=== PATIENT | male | born 1955 | race Caucasian/White ===

== ENCOUNTER 2017-06-06 17:16 | Inpatient (IN) | payer OTHER ==
[~2017-06-06] VITALS: Ht 180.3 cm; Wt 105.5 kg
[2017-06-06] MEDS ORDERED: GABA100C4 PO (17:29)
[2017-06-06] MEDS ORDERED: LIDOCAINE 1%/EPINEPHrine 1:100,000 SOLN 20 ML VIAL ONE (17:31)
[2017-06-06] MEDS ORDERED: MORPHINE SULFATE 4 MG/ML INJ IV PUSH ONE (17:45)
[2017-06-06] MEDS ORDERED: TETANUS/DIPHTHERIA TOXOID ADULT 0.5 ML VIAL IM ONE (17:45)
[2017-06-06] MEDS ORDERED: ONDANSETRON HCL 4 MG/2 ML VIAL IV PUSH ONE (17:45)
[2017-06-06 18:05] LABS: AUTOMATED NEUTROPHIL # 7.9 TH/MM3 (1.8-7.7); BASOPHIL % 0.3 % (0.0-2.0); EOSINOPHIL # 0.1 TH/MM3 (0-0.4); HEMATOCRIT 43.6 % (39.0-51.0); HEMOGLOBIN 15.2 GM/DL (13.0-17.0); LYMPH % 21.5 % (9.0-44.0); LYMPHOCYTE # 2.4 TH/MM3 (1.0-4.8); MEAN CELL VOLUME 95.3 FL (80.0-100.0); MEAN CORPUSCULAR HEMOGLOBIN 33.1 PG (27.0-34.0); MEAN CORPUSCULAR HGB CONC 34.8 % (32.0-36.0); MEAN PLATELET VOLUME 9.4 FL (7.0-11.0); MONO % 6.3 % (0.0-8.0); MONOCYTE # 0.7 TH/MM3 (0-0.9); NEUT % 70.9 % (16.0-70.0); PLATELET COUNT 121 TH/MM3 (150-450); RED BLOOD COUNT 4.57 MIL/MM3 (4.50-5.90); RED CELL DISTRIBUTION WIDTH 12.9 % (11.6-17.2); WHITE BLOOD COUNT 11.2 TH/MM3 (4.0-11.0)
[2017-06-06 18:21] LABS: BICARBONATE 28.2 MEQ/L (21.0-32.0); CALCIUM 8.5 MG/DL (8.5-10.1); CREATININE 1.62 MG/DL (0.60-1.30)
[2017-06-06] MEDS ORDERED: IOHEXOL 350 MG/ML 10 ML VIAL (for RAD DIAG) IVCONTRAST ONE (19:06)
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
[2017-06-06 19:45] VITALS: BP 138/64; PULSE 66; RESP 16; O2SAT 97
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
[2017-06-06] MEDS ORDERED: ACETAMINOPHEN/HYDROcodone 325 MG/5 MG TAB PO PRN (20:45)
[2017-06-06] MEDS ORDERED: CHLORHEXIDINE GLUCONATE 2 % 1 PACK (2 CLOTHS) TOP PRN (20:45)
[2017-06-06] MEDS ORDERED: MISCELLANEOUS NURSING INFORMATION XX SCH (20:45)
[2017-06-06] MEDS: HYDROmorphone HCL PF 1 MG/ML VIAL IVP PRN (20:47)
[2017-06-06] MEDS: ONDANSETRON HCL 4 MG/2 ML VIAL IV PUSH PRN (20:47)
[2017-06-06 20:48] VITALS: BP 157/80; PULSE 72; RESP 18; O2SAT 97
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
[2017-06-06] MEDS ORDERED: PANTOPRAZOLE SODIUM 40 MG VIAL IVP SCH (21:00)
[2017-06-06] MEDS ORDERED: DOCUSATE SODIUM 100 MG CAP PO SCH (21:00)
[2017-06-06] MEDS: SODIUM CHLOR 0.9% 1000 ML INJ 1,000 ML IV SCH (21:13)
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
[2017-06-06 22:34] VITALS: BP 147/74; PULSE 74; RESP 16; O2SAT 96
[2017-06-06 23:00] VITALS: PULSE 74
[2017-06-06 23:27] VITALS: O2SAT 99
[2017-06-07] VITALS (15 sets, daily range): BP systolic 137–178; BP diastolic 67–83; PULSE 57–89; RESP 13–22; TEMP 97.6–98.3; O2SAT 97–100
[2017-06-07] MEDS: ONDANSETRON HCL 4 MG/2 ML VIAL IV PUSH PRN ×2 (02:00→17:12)
[2017-06-07] MEDS: HYDROmorphone HCL PF 1 MG/ML VIAL IVP PRN ×5 (03:17→22:49)
[2017-06-07] MEDS: CHLORHEXIDINE GLUCONATE 2 % 1 PACK (2 CLOTHS) TOP SCH (04:00)
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
--- NOTE | 2017-06-07 04:31 | RADRPT ---
EXAM DATE/TIME: 06/07/2017 03:37 [facility] COMPARISON: CT THORACIC SPINE W/O CONTRAST, June 06, 2017, 21:24. CHEST SINGLE AP, June 06, 2017, 20:27. INDICATIONS : Short of breath. MEDICAL HISTORY : None. SURGICAL HISTORY : None. ENCOUNTER: Subsequent ACUITY: 2 days PAIN SCORE: 0/10 LOCATION: Bilateral chest FINDINGS: A single view of the chest demonstrates the lungs to be symmetrically aerated without evidence of mas s, infiltrate or effusion. The cardiomediastinal contours are unremarkable. Osseous structures are intact. Amorphous calcification is again noted in the left upper abdomen. CONCLUSION: No acute disease. Jt Dumas MD on June 07, 2017 at 4:27 Board Certified Radiologist. This report was verified electronically.
[2017-06-07] MEDS ORDERED: DEXTROSE 50% IN WATER 50 ML VIAL(D50) IV PUSH PRN (04:45)
[2017-06-07] MEDS ORDERED: GLUCAGON 1 MG/ML VIAL OTHER PRN (04:45)
[2017-06-07] MEDS: levETIRAcetam INJ 500 MG in SODIUM CHLORIDE 0.9% INJ 100 ML IV SCH ×2 (04:49→17:12)
--- NOTE | 2017-06-07 05:13 | RADRPT ---
EXAM DATE/TIME: 06/07/2017 04:46 [facility] COMPARISON: No previous studies available for comparison. INDICATIONS : Pain in right hand to posterior portion of hand. MEDICAL HISTORY : None. SURGICAL HISTORY : None. ENCOUNTER: Initial ACUITY: 1 day PAIN SCORE: 0/10 LOCATION: Right hand FINDINGS: Three view examination of the right hand demonstrates a mildly comminuted fracture of the fifth phala ngeal tuft. There is mild overlying soft tissue swelling. The carpal bones appear intact. The interp halangeal and metacarpophalangeal joints are intact with degenerative changes involving interphalange al joints with joint space loss, sclerosis and hypertrophic change. Bony mineralization is normal. CONCLUSION: 1. Mildly comminuted fracture of the fifth distal phalangeal tuft with mild soft tissue swelling. 2. Osteoarthritic change. Jt Dumas MD on June 07, 2017 at 5:10 Board Certified Radiologist. This report was verified electronically.
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
[2017-06-07] MEDS: INSULIN ASPART SUPPLEMENTAL SCALE SQ SCH ×3 (06:00→18:00)
[2017-06-07] MEDS: SODIUM CHLOR 0.9% 1000 ML INJ 1,000 ML IV SCH ×3 (06:17→20:22)
[2017-06-07 06:55] LABS: HEMATOCRIT 39.4 % (39.0-51.0); HEMOGLOBIN 13.3 GM/DL (13.0-17.0); MEAN CELL VOLUME 96.6 FL (80.0-100.0); MEAN CORPUSCULAR HEMOGLOBIN 32.6 PG (27.0-34.0); MEAN CORPUSCULAR HGB CONC 33.7 % (32.0-36.0); MEAN PLATELET VOLUME 9.3 FL (7.0-11.0); PLATELET COUNT 106 TH/MM3 (150-450); RED BLOOD COUNT 4.08 MIL/MM3 (4.50-5.90); RED CELL DISTRIBUTION WIDTH 13.2 % (11.6-17.2); WHITE BLOOD COUNT 11.5 TH/MM3 (4.0-11.0)
[2017-06-07 07:00] LABS: PROTHROMBIN TIME - PATIENT 10.4 SEC (9.8-11.6)
[2017-06-07 07:14] LABS: ALT (GPT) 13 U/L (12-78); AST (GOT) 14 U/L (15-37); BICARBONATE 27.9 MEQ/L (21.0-32.0); BLOOD UREA NITROGEN 25 MG/DL (7-18); CALCIUM 8.1 MG/DL (8.5-10.1); CHLORIDE 108 MEQ/L (98-107); CREATININE 1.28 MG/DL (0.60-1.30); GLOMERULAR FILTRATION RATE 57 ML/MIN (>89); GLUCOSE,RANDOM 138 MG/DL (74-106); SODIUM (NA) 141 MEQ/L (136-145)
[2017-06-07 07:17] LABS: ALKALINE PHOSPHATASE 57 U/L (45-117); TOTAL BILIRUBIN ADULT 0.6 MG/DL (0.2-1.0); TOTAL PROTEIN 6.1 GM/DL (6.4-8.2)
[2017-06-07] MEDS ORDERED: LACTULOSE SYRUP 20 GM/30 ML CUP PO PRN (08:00)
[2017-06-07] MEDS: BACITRACIN TOP OINT 15 GM TUBE TOP SCH ×2 (09:00→22:15)
[2017-06-07] MEDS: DOCUSATE SODIUM 50 MG/SENNA 8.6 MG TAB PO SCH ×2 (09:34→22:15)
[2017-06-07] MEDS: GABAPENTIN 100 MG CAP PO SCH ×3 (09:34→18:13)
[2017-06-07] MEDS: FAMOTIDINE 20 MG TAB PO SCH ×2 (09:34→22:15)
[2017-06-07] MEDS: BACITRACIN TOP OINT 15 GM TUBE TOPICAL SCH ×2 (09:35→21:00)
[2017-06-07] MEDS: POLYETHYLENE GLYCOL 17 GM PKG PO SCH (09:35)
--- NOTE | 2017-06-07 09:36 | RADRPT ---
EXAM DATE/TIME: 06/07/2017 08:47 [facility] COMPARISON: No previous studies available for comparison. INDICATIONS : Right leg swelling. MEDICAL HISTORY : Blood transfusion. Neuropathy. SURGICAL HISTORY : Lab band. Adrenal glad removal. ENCOUNTER: Initial ACUITY: >1 year PAIN SCORE: 8/10 LOCATION: Right leg. TECHNIQUE: Venous ultrasound of the leg was performed from the inguinal ligament to the proximal calf. Real-yuval e, color Doppler and spectral tracing, compression and augmentation techniques were used. FINDINGS: There is normal compressibility of the deep venous system from the inguinal region to the proximal ca lf. No echogenic clot is seen in the lumen of the common femoral, femoral, popliteal, and posterior tibial veins. There is a normal response of the venous system to proximal and distal augmentation an d respiration. CONCLUSION: No DVT is identified within the right lower extremity. Kranthi Monique MD on June 07, 2017 at 9:33 Board Certified Radiologist. This report was verified electronically.
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
[2017-06-07 12:36] LABS: AUTOMATED NEUTROPHIL # 7.1 TH/MM3 (1.8-7.7); BASOPHIL % 0.3 % (0.0-2.0); EOSINOPHIL % 0.4 % (0.0-4.0); HEMATOCRIT 38.4 % (39.0-51.0); HEMOGLOBIN 12.9 GM/DL (13.0-17.0); LYMPH % 13.7 % (9.0-44.0); LYMPHOCYTE # 1.3 TH/MM3 (1.0-4.8); MEAN CELL VOLUME 97.6 FL (80.0-100.0); MEAN CORPUSCULAR HEMOGLOBIN 32.9 PG (27.0-34.0); MEAN CORPUSCULAR HGB CONC 33.8 % (32.0-36.0); MEAN PLATELET VOLUME 9.7 FL (7.0-11.0); MONOCYTE # 1.2 TH/MM3 (0-0.9); NEUT % 73.6 % (16.0-70.0); PLATELET COUNT 99 TH/MM3 (150-450); RED BLOOD COUNT 3.93 MIL/MM3 (4.50-5.90); WHITE BLOOD COUNT 9.6 TH/MM3 (4.0-11.0)
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
--- NOTE | 2017-06-07 16:27 | RADRPT ---
EXAM DATE/TIME: 06/07/2017 13:49 [facility] COMPARISON: CT THORACIC SPINE W/O CONTRAST, June 06, 2017, 21:24. INDICATIONS : Fracture. MEDICAL HISTORY : Diabetes mellitus type 2. Hypertension. SURGICAL HISTORY : Total knee replacement, left. Total knee replacement, right. Adrenalectomy, Lap band sx. ENCOUNTER: Initial ACUITY: 2 day PAIN SCORE: 10/10 LOCATION: Bilateral mid back TECHNIQUE: Multiplanar multisequence MRI of the thoracic spine was performed. FINDINGS: Sagittal T1, T2 and inversion recovery images confirm an oblique, nondisplaced fracture through the a nterosuperior aspect of the T10 vertebral body. Vertebral bodies are otherwise intact without additio nal fracture or listhesis. Dextroscoliosis of the dorsal spine with associated mild degenerative graciela inal spurring. However, the spinal canal appears to be widely patent throughout without cord compromi se. Also noted are small bilateral renal cortical cysts. Innumerable gallstones in the gallbladder jairon men. T1-T2: Normal. T2-T3: The thecal sac has a normal diameter. No evidence of disc bulge or protrusion. T3-T4: The thecal sac has a normal diameter. No evidence of disc bulge or protrusion. T4-T5: The thecal sac has a normal diameter. No evidence of disc bulge or protrusion. T5-T6: The thecal sac has a normal diameter. No evidence of disc bulge or protrusion. T6-T7: The thecal sac has a normal diameter. No evidence of disc bulge or protrusion. T7-T8: The thecal sac has a normal diameter. No evidence of disc bulge or protrusion. T8-T9: The thecal sac has a normal diameter. No evidence of disc bulge or protrusion. T9-T10: The thecal sac has a normal diameter. No evidence of disc bulge or protrusion. T10-T11: The thecal sac has a normal diameter. No evidence of disc bulge or protrusion. T11-T12: The thecal sac has a normal diameter. No evidence of disc bulge or protrusion. T12-L1: The thecal sac has a normal diameter. No evidence of disc bulge or protrusion. CONCLUSION: 1. MRI confirms the presence of an acute or subacute oblique fracture through the anterosuperior aspe ct of the T10 vertebral body. 2. Dextroscoliosis of the dorsal spine with associated mild marginal spurring. Spinal canal is patent throughout without cord compromise. 3. Innumerable gallstones in the gallbladder lumen. Benign-appearing cortical cysts in the visualized portions of the kidneys bilaterally. Carlos White MD on June 07, 2017 at 16:12 Board Certified Radiologist. This report was verified electronically.
--- NOTE | 2017-06-07 18:43 | EKG ---
Date Performed: 06/07/2017 Time Performed: 01:53:18 PTAGE: 61 years EKG: Sinus rhythm with 1st degree A-V block. Abnormal ECG NO PREVIOUS TRACING DOCTOR: Monique Iyer Interpretating Date/Time 06/07/2017 18:41:44
[2017-06-07] MEDS: ACETAMINOPHEN/HYDROcodone 325 MG/5 MG TAB PO PRN (22:16)
[2017-06-08] VITALS (16 sets, daily range): BP systolic 109–177; BP diastolic 57–88; PULSE 47–85; RESP 14–28; TEMP 98.1–98.5; O2SAT 97–100
[2017-06-08] MEDS: HYDROmorphone HCL PF 1 MG/ML VIAL IVP PRN ×6 (03:07→23:55)
[2017-06-08] MEDS: CHLORHEXIDINE GLUCONATE 2 % 1 PACK (2 CLOTHS) TOP SCH (03:08)
[2017-06-08] MEDS: ENALAPRILAT 1.25 MG/ML VIAL IV PUSH PRN ×2 (03:38→21:50)
[2017-06-08 04:50] LABS: AUTOMATED NEUTROPHIL # 6.1 TH/MM3 (1.8-7.7); BASOPHIL % 0.2 % (0.0-2.0); EOSINOPHIL % 0.4 % (0.0-4.0); HEMATOCRIT 38.6 % (39.0-51.0); LYMPH % 15.1 % (9.0-44.0); LYMPHOCYTE # 1.2 TH/MM3 (1.0-4.8); MEAN CELL VOLUME 97.5 FL (80.0-100.0); MEAN CORPUSCULAR HEMOGLOBIN 32.8 PG (27.0-34.0); MEAN CORPUSCULAR HGB CONC 33.6 % (32.0-36.0); MEAN PLATELET VOLUME 9.6 FL (7.0-11.0); MONO % 8.2 % (0.0-8.0); MONOCYTE # 0.7 TH/MM3 (0-0.9); NEUT % 76.1 % (16.0-70.0); PLATELET COUNT 87 TH/MM3 (150-450); RED BLOOD COUNT 3.95 MIL/MM3 (4.50-5.90); RED CELL DISTRIBUTION WIDTH 13.3 % (11.6-17.2)
[2017-06-08 05:11] LABS: BICARBONATE 27.2 MEQ/L (21.0-32.0); CALCIUM 8.3 MG/DL (8.5-10.1); CREATININE 0.98 MG/DL (0.60-1.30)
[2017-06-08] MEDS: levETIRAcetam INJ 500 MG in SODIUM CHLORIDE 0.9% INJ 100 ML IV SCH ×2 (05:49→16:50)
[2017-06-08] MEDS: INSULIN ASPART SUPPLEMENTAL SCALE SQ SCH ×4 (05:50→17:51)
[2017-06-08] MEDS: DOCUSATE SODIUM 50 MG/SENNA 8.6 MG TAB PO SCH ×2 (07:47→20:26)
[2017-06-08] MEDS: FAMOTIDINE 20 MG TAB PO SCH ×2 (07:47→20:26)
[2017-06-08] MEDS: GABAPENTIN 100 MG CAP PO SCH ×3 (07:47→17:51)
[2017-06-08] MEDS: BACITRACIN TOP OINT 15 GM TUBE TOPICAL SCH ×2 (07:48→20:22)
[2017-06-08] MEDS: BACITRACIN TOP OINT 15 GM TUBE TOP SCH ×2 (07:48→20:26)
[2017-06-08] MEDS: POLYETHYLENE GLYCOL 17 GM PKG PO SCH (07:48)
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
[2017-06-08] MEDS: ACETAMINOPHEN/HYDROcodone 325 MG/5 MG TAB PO PRN (12:20)
[2017-06-08] MEDS: SODIUM CHLOR 0.9% 1000 ML INJ 1,000 ML IV SCH ×2 (12:59→20:00)
--- NOTE | 2017-06-08 22:58 | RADRPT ---
EXAM DATE/TIME: 06/08/2017 22:11 [place] COMPARISON: CT BRAIN W/O CONTRAST, June 06, 2017, 18:58. INDICATIONS : Trauma, F/U bleed. RADIATION DOSE: 50.58 CTDIvol (mGy) MEDICAL HISTORY : Diabetes mellitus type 1. SURGICAL HISTORY : None. ENCOUNTER: Subsequent ACUITY: 2 days PAIN SCALE: 5/10 LOCATION: cranial TECHNIQUE: Multiple contiguous axial images were obtained of the head. Using automated exposure control and adj ustment of the mA and/or kV according to patient size, radiation dose was kept as low as reasonably a chievable to obtain optimal diagnostic quality images. DICOM format image data is available electro nically for review and comparison. FINDINGS: There is a new collection of parenchymal hemorrhage within the right temporal lobe measuring 3.0 x 3. 0 cm. The findings were called immediately to the patient's nurse at 10:52 PM on 06/08/17. There has b een some improvement of the right frontoparietal subdural hematoma. Scattered acute subarachnoid bloo d is noted within the right high parietal and to a lesser extent left high parietal regions. There is very minimal persistent 2-3 mm subfalcine herniation to the left. The ventricles are normal in size shape and position for the patient's age. CONCLUSION: 1. New collection of parenchymal hemorrhage within the right temporal lobe measuring 3.0 x 3.0 cm. Th e findings were called immediately to the patient's nurse at 10:52 PM on 06/08/17. 2. Scattered acute subarachnoid hemorrhage within the high parietal regions bilaterally. 3. Very minimal persistent 2-3 mm subfalcine herniation to the left. 4. Interval improvement of the right frontoparietal subdural hematoma. Pan Holguin MD on June 08, 2017 at 22:49 Board Certified Radiologist. This report was verified electronically.
[2017-06-08] MEDS ORDERED: MANNITOL 12.5 GM/50 ML VIAL IV SCH (23:00)
[2017-06-09] VITALS (16 sets, daily range): BP systolic 99–182; BP diastolic 58–97; PULSE 49–124; RESP 16–27; TEMP 97.1–98.4; O2SAT 94–99
[2017-06-09] MEDS ORDERED: LORazepam 2 MG/ML VIAL IV PUSH PRN ×4
[2017-06-09] MEDS ORDERED: FLUMAZENIL 0.5 MG/5 ML VIAL IV PUSH PRN
[2017-06-09] MEDS ORDERED: LORazepam 1 MG TAB PO PRN
[2017-06-09] MEDS ORDERED: LORazepam 2 MG TAB PO PRN
[2017-06-09] MEDS ORDERED: MANNITOL INJ 100 ML ONE (00:21)
[2017-06-09] MEDS ORDERED: MANNITOL 12.5 GM/50 ML VIAL IV ONE (00:30)
[2017-06-09] MEDS: hydrALAZINE HCL 20 MG/ML VIAL IV PUSH PRN ×2 (01:24→06:13)
[2017-06-09] MEDS: CHLORHEXIDINE GLUCONATE 2 % 1 PACK (2 CLOTHS) TOP SCH (04:00)
[2017-06-09] MEDS: ENALAPRILAT 1.25 MG/ML VIAL IV PUSH PRN (04:36)
[2017-06-09] MEDS: levETIRAcetam INJ 500 MG in SODIUM CHLORIDE 0.9% INJ 100 ML IV SCH ×2 (04:36→17:00)
[2017-06-09] MEDS: HYDROmorphone HCL PF 1 MG/ML VIAL IVP PRN ×2 (05:04→13:55)
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
[2017-06-09] MEDS: INSULIN ASPART SUPPLEMENTAL SCALE SQ SCH ×5 (05:52→23:18)
[2017-06-09] MEDS ORDERED: niCARdipine 25 MG/NS 250 ML Vial2Bag or IV room IV PRN ×2 (06:15)
[2017-06-09] MEDS: DEXMEDETOMIDINE INJ 200 MCG in SODIUM CHLORIDE 0.9% INJ 50 ML IV PRN ×5 (08:00→23:07)
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
[2017-06-09] MEDS: DOCUSATE SODIUM 50 MG/SENNA 8.6 MG TAB PO SCH ×2 (09:00→21:00)
[2017-06-09] MEDS: GABAPENTIN 100 MG CAP PO SCH ×3 (09:00→17:25)
[2017-06-09] MEDS: THIAMINE INJ 100 MG in SODIUM CHLORIDE 0.9% INJ 100 ML IV SCH (09:00)
[2017-06-09] MEDS: MANNITOL 12.5 GM/50 ML VIAL IV SCH ×3 (09:00→17:00)
[2017-06-09] MEDS: BACITRACIN TOP OINT 15 GM TUBE TOPICAL SCH ×2 (09:00→21:00)
[2017-06-09] MEDS ORDERED: levETIRAcetam INJ 500 MG in SODIUM CHLORIDE 0.9% INJ 100 ML IV SCH (09:00)
[2017-06-09] MEDS: FAMOTIDINE 20 MG/2 ML VIAL IV PUSH SCH ×2 (09:00→21:37)
[2017-06-09] MEDS: POLYETHYLENE GLYCOL 17 GM PKG PO SCH (09:00)
[2017-06-09] MEDS: SODIUM CHLOR 0.9% 1000 ML INJ 1,000 ML IV SCH ×2 (09:00→19:00)
[2017-06-09] MEDS: BACITRACIN TOP OINT 15 GM TUBE TOP SCH ×2 (09:00→21:00)
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
--- NOTE | 2017-06-09 11:14 | RADRPT ---
EXAM DATE/TIME: 06/09/2017 10:30 [facility] COMPARISON: CT BRAIN W/O CONTRAST, June 08, 2017, 22:11. INDICATIONS : Follow up bleed. RADIATION DOSE: 56.35 CTDIvol (mGy) MEDICAL HISTORY : Bleed SURGICAL HISTORY : None. ENCOUNTER: Initial ACUITY: 1 day PAIN SCALE: Non-responsive LOCATION: cranial TECHNIQUE: Multiple contiguous axial images were obtained of the head. Using automated exposure control and adj ustment of the mA and/or kV according to patient size, radiation dose was kept as low as reasonably a chievable to obtain optimal diagnostic quality images. DICOM format image data is available electro nically for review and comparison. FINDINGS: CEREBRUM: Moderate to large right temporal lobe hemorrhage is identified and has not significantly enlarged sin ce the previous exam. Measurements are different due to projection. The hemorrhage measures 4.6 cm in greatest dimension on the current study scattered subarachnoid hemorrhage in the parietal lobes is a gain noted and has not progressed. POSTERIOR FOSSA: The cerebellum and brainstem are intact. The 4th ventricle is midline. The cerebellopontine angle i s unremarkable. EXTRACRANIAL: The visualized portion of the orbits is intact. SKULL: The calvaria is intact. No evidence of skull fracture. CONCLUSION: Stable right temporal lobe hematoma and biparietal subarachnoid hemorrhage. No evidence of increasing mass effect or edema. Jairo Mills MD on June 09, 2017 at 11:05 Board Certified Radiologist. This report was verified electronically.
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
[2017-06-09] MEDS: VALPROIC ACID 250 MG CAP PO SCH ×2 (12:59→17:25)
[2017-06-09 16:23] LABS: ALBUMIN 2.6 GM/DL (3.4-5.0); ALT (GPT) 15 U/L (12-78); AST (GOT) 21 U/L (15-37); BLOOD UREA NITROGEN 12 MG/DL (7-18); CALCIUM 8.5 MG/DL (8.5-10.1); CHLORIDE 105 MEQ/L (98-107); CREATININE 0.86 MG/DL (0.60-1.30); GLOMERULAR FILTRATION RATE 90 ML/MIN (>89); GLUCOSE,RANDOM 135 MG/DL (74-106); MAGNESIUM 1.4 MG/DL (1.5-2.5); SODIUM (NA) 137 MEQ/L (136-145)
[2017-06-09 16:25] LABS: ALKALINE PHOSPHATASE 54 U/L (45-117); TOTAL BILIRUBIN ADULT 1.2 MG/DL (0.2-1.0); TOTAL PROTEIN 6.2 GM/DL (6.4-8.2)
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
[2017-06-09 23:01] LABS: AUTOMATED NEUTROPHIL # 4.6 TH/MM3 (1.8-7.7); BASOPHIL % 0.6 % (0.0-2.0); EOSINOPHIL # 0.1 TH/MM3 (0-0.4); EOSINOPHIL % 1.3 % (0.0-4.0); HEMATOCRIT 38.7 % (39.0-51.0); HEMOGLOBIN 13.4 GM/DL (13.0-17.0); LYMPH % 20.3 % (9.0-44.0); LYMPHOCYTE # 1.3 TH/MM3 (1.0-4.8); MEAN CELL VOLUME 95.6 FL (80.0-100.0); MEAN CORPUSCULAR HGB CONC 34.6 % (32.0-36.0); MEAN PLATELET VOLUME 8.9 FL (7.0-11.0); MONO % 7.8 % (0.0-8.0); MONOCYTE # 0.5 TH/MM3 (0-0.9); PLATELET COUNT 112 TH/MM3 (150-450); RED BLOOD COUNT 4.04 MIL/MM3 (4.50-5.90); RED CELL DISTRIBUTION WIDTH 12.8 % (11.6-17.2); WHITE BLOOD COUNT 6.6 TH/MM3 (4.0-11.0)
[2017-06-10] VITALS (13 sets, daily range): BP systolic 116–183; BP diastolic 65–88; PULSE 52–106; RESP 18–22; TEMP 98–101.1; O2SAT 94–99
[2017-06-10] MEDS: DEXMEDETOMIDINE INJ 200 MCG in SODIUM CHLORIDE 0.9% INJ 50 ML IV PRN ×5 (00:49→06:35)
[2017-06-10 01:05] LABS: INTERNATIONAL NORMALIZED RATIO 1.1 RATIO; PROTHROMBIN TIME - PATIENT 10.8 SEC (9.8-11.6)
[2017-06-10] MEDS: SODIUM CHLOR 0.9% 1000 ML INJ 1,000 ML IV SCH ×2 (02:15→14:56)
[2017-06-10] MEDS: CHLORHEXIDINE GLUCONATE 2 % 1 PACK (2 CLOTHS) TOP SCH (03:37)
[2017-06-10] MEDS: levETIRAcetam INJ 500 MG in SODIUM CHLORIDE 0.9% INJ 100 ML IV SCH ×2 (04:39→16:04)
[2017-06-10 04:50] LABS: AUTOMATED NEUTROPHIL # 4.5 TH/MM3 (1.8-7.7); BASOPHIL % 0.5 % (0.0-2.0); EOSINOPHIL # 0.1 TH/MM3 (0-0.4); EOSINOPHIL % 1.6 % (0.0-4.0); HEMATOCRIT 38.2 % (39.0-51.0); HEMOGLOBIN 13.1 GM/DL (13.0-17.0); LYMPH % 21.8 % (9.0-44.0); LYMPHOCYTE # 1.4 TH/MM3 (1.0-4.8); MEAN CELL VOLUME 95.5 FL (80.0-100.0); MEAN CORPUSCULAR HEMOGLOBIN 32.7 PG (27.0-34.0); MEAN CORPUSCULAR HGB CONC 34.2 % (32.0-36.0); MEAN PLATELET VOLUME 9.5 FL (7.0-11.0); MONO % 8.3 % (0.0-8.0); MONOCYTE # 0.6 TH/MM3 (0-0.9); NEUT % 67.8 % (16.0-70.0); PLATELET COUNT 116 TH/MM3 (150-450); RED CELL DISTRIBUTION WIDTH 12.5 % (11.6-17.2); WHITE BLOOD COUNT 6.6 TH/MM3 (4.0-11.0)
[2017-06-10 05:11] LABS: ALBUMIN 2.7 GM/DL (3.4-5.0); AST (GOT) 24 U/L (15-37); BICARBONATE 26.1 MEQ/L (21.0-32.0); BLOOD UREA NITROGEN 14 MG/DL (7-18); CALCIUM 8.7 MG/DL (8.5-10.1); CHLORIDE 104 MEQ/L (98-107); CREATININE 1.07 MG/DL (0.60-1.30); GLOMERULAR FILTRATION RATE 70 ML/MIN (>89); GLUCOSE,RANDOM 126 MG/DL (74-106); SODIUM (NA) 139 MEQ/L (136-145)
[2017-06-10 05:12] LABS: ALT (GPT) 11 U/L (12-78)
[2017-06-10 05:14] LABS: ALKALINE PHOSPHATASE 62 U/L (45-117); TOTAL BILIRUBIN ADULT 1.5 MG/DL (0.2-1.0); TOTAL PROTEIN 6.8 GM/DL (6.4-8.2)
[2017-06-10] MEDS: INSULIN ASPART SUPPLEMENTAL SCALE SQ SCH ×3 (05:16→17:28)
[2017-06-10] MEDS: MANNITOL 12.5 GM/50 ML VIAL IV SCH ×4 (05:17→16:07)
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
[2017-06-10] MEDS: FAMOTIDINE 20 MG/2 ML VIAL IV PUSH SCH ×2 (08:03→21:32)
[2017-06-10] MEDS: THIAMINE INJ 100 MG in SODIUM CHLORIDE 0.9% INJ 100 ML IV SCH (08:03)
[2017-06-10] MEDS: BACITRACIN TOP OINT 15 GM TUBE TOP SCH (08:05)
[2017-06-10] MEDS: POLYETHYLENE GLYCOL 17 GM PKG PO SCH (08:05)
[2017-06-10] MEDS: DOCUSATE SODIUM 50 MG/SENNA 8.6 MG TAB PO SCH ×2 (08:05→21:00)
[2017-06-10] MEDS: VALPROIC ACID 250 MG CAP PO SCH (08:05)
[2017-06-10] MEDS: BACITRACIN TOP OINT 15 GM TUBE TOPICAL SCH ×2 (08:05→21:31)
[2017-06-10] MEDS: GABAPENTIN 100 MG CAP PO SCH ×3 (08:05→17:28)
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
[2017-06-10] MEDS: VALPROATE INJ 500 MG in SODIUM CHLORIDE 0.9% INJ 100 ML IV SCH (14:54)
[2017-06-10] MEDS: HALOPERIDOL LACTATE 5 MG/ML AMP IV PUSH PRN ×2 (16:04→21:32)
[2017-06-10] MEDS: ENALAPRILAT 1.25 MG/ML VIAL IV PUSH PRN (18:11)
[2017-06-10] MEDS: hydrALAZINE HCL 20 MG/ML VIAL IV PUSH PRN (19:23)
[2017-06-10] MEDS: HYDROmorphone HCL PF 1 MG/ML VIAL IVP PRN (19:29)
[2017-06-10] MEDS ORDERED: LABETALOL HCL 100 MG/20 ML VIAL IV SCH (22:30)
[2017-06-10] MEDS ORDERED: LABETALOL HCL 100 MG/20 ML VIAL IV PRN (22:30)
[2017-06-11] VITALS (15 sets, daily range): BP systolic 96–173; BP diastolic 58–85; PULSE 86–125; RESP 18–26; TEMP 98–100; O2SAT 95–100
[2017-06-11] MEDS: INSULIN ASPART SUPPLEMENTAL SCALE SQ SCH ×4 (00:36→18:00)
[2017-06-11] MEDS: MANNITOL 12.5 GM/50 ML VIAL IV SCH ×5 (00:45→23:00)
[2017-06-11] MEDS: SODIUM CHLOR 0.9% 1000 ML INJ 1,000 ML IV SCH ×3 (01:00→16:00)
[2017-06-11] MEDS: VALPROATE INJ 500 MG in SODIUM CHLORIDE 0.9% INJ 100 ML IV SCH ×2 (03:02→15:00)
[2017-06-11] MEDS: CHLORHEXIDINE GLUCONATE 2 % 1 PACK (2 CLOTHS) TOP SCH (04:00)
[2017-06-11] MEDS: levETIRAcetam INJ 500 MG in SODIUM CHLORIDE 0.9% INJ 100 ML IV SCH ×2 (04:51→17:19)
[2017-06-11 04:59] LABS: ALBUMIN 2.7 GM/DL (3.4-5.0); AST (GOT) 27 U/L (15-37); BICARBONATE 25.1 MEQ/L (21.0-32.0); BLOOD UREA NITROGEN 16 MG/DL (7-18); CALCIUM 8.9 MG/DL (8.5-10.1); CHLORIDE 104 MEQ/L (98-107); CREATININE 1.21 MG/DL (0.60-1.30); GLOMERULAR FILTRATION RATE 61 ML/MIN (>89); GLUCOSE,RANDOM 139 MG/DL (74-106); SODIUM (NA) 140 MEQ/L (136-145)
[2017-06-11 05:02] LABS: ALKALINE PHOSPHATASE 66 U/L (45-117); ALT (GPT) 13 U/L (12-78); TOTAL BILIRUBIN ADULT 2.5 MG/DL (0.2-1.0); TOTAL PROTEIN 7.3 GM/DL (6.4-8.2)
[2017-06-11 05:08] LABS: AUTOMATED NEUTROPHIL # 6.6 TH/MM3 (1.8-7.7); BASOPHIL # 0.1 TH/MM3 (0-0.2); BASOPHIL % 0.5 % (0.0-2.0); EOSINOPHIL # 0.1 TH/MM3 (0-0.4); EOSINOPHIL % 1.1 % (0.0-4.0); HEMATOCRIT 40.5 % (39.0-51.0); HEMOGLOBIN 13.8 GM/DL (13.0-17.0); LYMPHOCYTE # 1.7 TH/MM3 (1.0-4.8); MEAN CELL VOLUME 95.1 FL (80.0-100.0); MEAN CORPUSCULAR HEMOGLOBIN 32.4 PG (27.0-34.0); MEAN CORPUSCULAR HGB CONC 34.1 % (32.0-36.0); MEAN PLATELET VOLUME 8.8 FL (7.0-11.0); MONO % 11.3 % (0.0-8.0); MONOCYTE # 1.1 TH/MM3 (0-0.9); NEUT % 69.1 % (16.0-70.0); PLATELET COUNT 151 TH/MM3 (150-450); RED BLOOD COUNT 4.26 MIL/MM3 (4.50-5.90); RED CELL DISTRIBUTION WIDTH 12.8 % (11.6-17.2); WHITE BLOOD COUNT 9.5 TH/MM3 (4.0-11.0)
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
[2017-06-11] MEDS: THIAMINE INJ 100 MG in SODIUM CHLORIDE 0.9% INJ 100 ML IV SCH (07:19)
[2017-06-11] MEDS ORDERED: BISACODYL 10 MG SUPP RECTAL ONE (07:30)
[2017-06-11] MEDS: BACITRACIN TOP OINT 15 GM TUBE TOPICAL SCH ×2 (07:43→20:17)
[2017-06-11] MEDS: LACTULOSE SYRUP 20 GM/30 ML CUP PO SCH (09:00)
[2017-06-11] MEDS: POLYETHYLENE GLYCOL 17 GM PKG PO SCH (09:00)
[2017-06-11] MEDS: GABAPENTIN 100 MG CAP PO SCH ×3 (09:00→17:39)
[2017-06-11] MEDS: MAGNESIUM HYDROXIDE SUSP 30 ML CUP PO SCH ×2 (09:00→20:16)
[2017-06-11] MEDS: FAMOTIDINE 20 MG/2 ML VIAL IV PUSH SCH ×2 (09:00→20:16)
[2017-06-11] MEDS: DOCUSATE SODIUM 50 MG/SENNA 8.6 MG TAB PO SCH ×2 (09:00→20:16)
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
[2017-06-11] MEDS: HALOPERIDOL LACTATE 5 MG/ML AMP IV PUSH PRN (10:30)
[2017-06-11] MEDS ORDERED: METOPROLOL TARTRATE 5 MG/5 ML VIAL IV PUSH SCH (11:00)
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
[2017-06-11] MEDS ORDERED: LACTATED RINGER'S 1000 ML INJ 1,000 ML IV SCH (14:00)
[2017-06-11] MEDS: QUEtiapine FUMARATE 25 MG TAB PO SCH ×2 (14:00→22:00)
[2017-06-11] MEDS ORDERED: AMIODARONE INJ 150 MG in DEXTROSE 5% IN WATER 100ML INJ 100 ML IV ONE ×2 (14:00)
--- NOTE | 2017-06-11 14:58 | RADRPT ---
EXAM DATE/TIME: 06/11/2017 13:24 [facility] COMPARISON: No previous studies available for comparison. INDICATIONS : Confirm NG tube placement. MEDICAL HISTORY : None. SURGICAL HISTORY : None. ENCOUNTER: Subsequent ACUITY: 4 - 6 days PAIN SCORE: Non-responsive. LOCATION: Bilateral chest FINDINGS: Examination of the abdomen demonstrates a weighted Dobbhoff feeding tube with the tip in the expected location of the gastric antrum/duodenal bulb. Contrast in the left upper abdominal quadrant presumab ly in the gastric fundus. Nonobstructive bowel gas pattern. Osseous structures are grossly intact. CONCLUSION: 1. No evidence of obstruction. 2. Dobbhoff feeding tube with the weighted tip in the expected location of the gastric antrum/duodena l bulb. Carlos White MD on June 11, 2017 at 14:54 Board Certified Radiologist. This report was verified electronically.
[2017-06-11] MEDS ORDERED: ROCURONIUM INJ 50 MG/5 ML VIAL ONE (15:38)
[2017-06-11] MEDS ORDERED: MIDAZOLAM HCL 5 MG/ML VIAL (1 ML) ONE (15:38)
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
[2017-06-11] MEDS ORDERED: ETOMIDATE 20 MG/10 ML VIAL IV PUSH ONE (15:45)
[2017-06-11] MEDS ORDERED: ROCURONIUM INJ 50 MG/5 ML VIAL IV ONE (15:45)
[2017-06-11] MEDS ORDERED: MIDAZOLAM HCL 5 MG/5 ML VIAL IV PUSH ONE (15:45)
[2017-06-11] MEDS ORDERED: NOREPINEPHRINE-DEXTROSE DRIP 250 ML IV ONE (15:57)
[2017-06-11] MEDS ORDERED: TERBUTALINE INJ 1 MG/ML AMP SQ PRN (16:00)
[2017-06-11] MEDS ORDERED: SODIUM CHLOR 0.9% 1000 ML INJ 1,000 ML IV ONE (16:00)
--- NOTE | 2017-06-11 16:02 | RADRPT ---
EXAM DATE/TIME: 06/11/2017 15:31 [facility] COMPARISON: ABDOMEN SINGLE VIEW, June 11, 2017, 13:24. CHEST SINGLE AP, June 07, 2017, 3:37. INDICATIONS : Evalaute for respiratory disease/failure. MEDICAL HISTORY : None. SURGICAL HISTORY : None. ENCOUNTER: Subsequent ACUITY: 4 - 6 days PAIN SCORE: Non-responsive. LOCATION: chest FINDINGS: Mild right lower lung zone airspace disease. Cardiomediastinal contours are within normal limits. Int erval placement of Dobbhoff tube coursing beyond the GE junction. Negative exam is unchanged. CONCLUSION: 1. Mild right lower lung zone atelectasis. Vinh Charles MD on June 11, 2017 at 15:58 Board Certified Radiologist. This report was verified electronically.
--- NOTE | 2017-06-11 16:33 | PD.PROCEDR ---
Procedure Note Procedure Indication: Respiratory failure lack of airway protection Procedure INTUBATION: The patient was put in optimal position for the procedure. Rapid sequence intubation was initiated by me using 20 milligrams of etomidate IV and 5 milligrams of Versed IV and 50 mg Rocuronium IV. DL with Mac 4 blade, grade 1 view, single attempt. The patient was intubated with a cuffed endotracheal tube. Tube placement was confirmed by visualization of the tube and balloon passing through the cords, capnometry and subsequent chest x-ray. Breath sounds were equal and well aerated bilaterally postintubation. No breath sounds over stomach. Patient tolerated procedure well. Chelsea Crisostomo MD Jun 11, 2017 16:33
--- NOTE | 2017-06-11 16:34 | PD.PROCEDR ---
Central Line Procedure REASON FOR PROCEDURE Central venous access PROCEDURE PERFORMED Central line placement: US guided LIJ central line CONSENT Informed consent for procedure was obtained and time out performed. The risks and benefits of the procedure were discussed to include but limited to bleeding , clot formation, infection, and even . ANESTHESIA Local injection of 1% Lidocaine DESCRIPTION OF THE PROCEDURE The patient was placed in supine, mild Trendelenburg position. The area was exposed and cleansed with ChloraPrep, times two. Large sterile drape was used to cover the patient, with the site exposed, under sterile conditions including cap, face mask, sterile gown, and sterile gloves. On single attempt, the introducer needle was inserted with negative pressure in syringe and venous flash was obtained. The guide wire was then advanced without any restriction and the needle was removed. The dilator was used without any complications. Using Seldinger technique the 20 cm 7F catheter was advanced over the guide wire to a depth of 18 centimeters. The guide wire was removed. All ports were aspirated with dark venous blood return and flushed easily with sterile saline. All ports were capped. Antibiotic disc was placed around central line at puncture site. The central line was secured to the skin with two interrupted 2.0 silk sutures. The area was bandaged with sterile see-through central line bandage. RADIOLOGICAL DATA Ultrasound guidance was used to locate LIJ COMPLICATIONS: No apparent complications ESTIMATED BLOOD LOSS: Less than 1 cc. Chelsea Crisostomo MD Jun 11, 2017 16:34
[2017-06-11] MEDS ORDERED: MIDAZOLAM 100 MG/100 ML INJ 100 ML IV PRN (17:00)
[2017-06-11] MEDS ORDERED: METOPROLOL TARTRATE 5 MG/5 ML VIAL IV PUSH PRN (17:00)
--- NOTE | 2017-06-11 17:25 | RADRPT ---
EXAM DATE/TIME: 06/11/2017 16:22 [facility] COMPARISON: ABDOMEN SINGLE VIEW, June 11, 2017, 13:24. CHEST SINGLE AP, June 11, 2017, 15:31. INDICATIONS : Post intubation. MEDICAL HISTORY : None. SURGICAL HISTORY : None. ENCOUNTER: Subsequent ACUITY: 1 day PAIN SCORE: Non-responsive. LOCATION: Bilateral chest FINDINGS: Portable AP view of the chest demonstrates a normal-sized cardiac silhouette. Endotracheal tube dista l tip is at the aortic knob level measuring 2.6 cm from the maria isabel. Left IJ central line distal tip i n the SVC, and feeding tube courses beyond the GE junction. Lungs are mildly underinflated but no eff usion, consolidation, or pneumothorax is identified. Bones and soft tissues demonstrate no acute find ing. Stable density overlying the left upper quadrant is present. CONCLUSION: 1. Endotracheal tube distal tip measures 2.6 cm from the maria isabel. 2. Otherwise, no acute abnormality is identified. Kranthi Monique MD on June 11, 2017 at 17:22 Board Certified Radiologist. This report was verified electronically.
[2017-06-11] MEDS: BENEPROTEIN POWDER 1 PACK G-TUBE SCH (17:38)
[2017-06-11] MEDS: chlordiazePOXIDE 25 MG CAP PO SCH (17:39)
[2017-06-11] MEDS: NOREPINEPHRINE INJ 4 MG in SODIUM CHLOR 0.9% 250 ML INJ 246 ML IV PRN (17:57)
[2017-06-11 18:05] LABS: AUTOMATED NEUTROPHIL # 6.6 TH/MM3 (1.8-7.7); BASOPHIL % 0.4 % (0.0-2.0); EOSINOPHIL # 0.1 TH/MM3 (0-0.4); EOSINOPHIL % 1.5 % (0.0-4.0); HEMATOCRIT 35.4 % (39.0-51.0); HEMOGLOBIN 12.2 GM/DL (13.0-17.0); LYMPH % 13.7 % (9.0-44.0); LYMPHOCYTE # 1.2 TH/MM3 (1.0-4.8); MEAN CELL VOLUME 95.5 FL (80.0-100.0); MEAN CORPUSCULAR HEMOGLOBIN 32.9 PG (27.0-34.0); MEAN CORPUSCULAR HGB CONC 34.4 % (32.0-36.0); MEAN PLATELET VOLUME 8.8 FL (7.0-11.0); MONO % 12.2 % (0.0-8.0); MONOCYTE # 1.1 TH/MM3 (0-0.9); NEUT % 72.2 % (16.0-70.0); PLATELET COUNT 148 TH/MM3 (150-450); RED BLOOD COUNT 3.71 MIL/MM3 (4.50-5.90); RED CELL DISTRIBUTION WIDTH 12.8 % (11.6-17.2); WHITE BLOOD COUNT 9.1 TH/MM3 (4.0-11.0)
[2017-06-11 18:19] LABS: ALBUMIN 2.3 GM/DL (3.4-5.0); ALT (GPT) 15 U/L (12-78); AST (GOT) 28 U/L (15-37); BICARBONATE 25.8 MEQ/L (21.0-32.0); BLOOD UREA NITROGEN 19 MG/DL (7-18); CALCIUM 8.6 MG/DL (8.5-10.1); CHLORIDE 109 MEQ/L (98-107); CREATININE 1.29 MG/DL (0.60-1.30); GLOMERULAR FILTRATION RATE 56 ML/MIN (>89); GLUCOSE,RANDOM 136 MG/DL (74-106); MAGNESIUM 1.6 MG/DL (1.5-2.5); SODIUM (NA) 144 MEQ/L (136-145)
[2017-06-11 18:22] LABS: ALKALINE PHOSPHATASE 58 U/L (45-117); TOTAL BILIRUBIN ADULT 2.4 MG/DL (0.2-1.0); TOTAL PROTEIN 6.3 GM/DL (6.4-8.2)
--- NOTE | 2017-06-11 18:57 | RADRPT ---
EXAM DATE/TIME: 06/11/2017 18:34 [facility] COMPARISON: CT BRAIN W/O CONTRAST, June 09, 2017, 10:30. INDICATIONS : Change in mental status. RADIATION DOSE: 54.46 CTDIvol (mGy) MEDICAL HISTORY : Non-responsive. SURGICAL HISTORY : Non-responsive. ENCOUNTER: Subsequent ACUITY: 4 - 6 days PAIN SCALE: Non-responsive LOCATION: cranial TECHNIQUE: Multiple contiguous axial images were obtained of the head. Using automated exposure control and adj ustment of the mA and/or kV according to patient size, radiation dose was kept as low as reasonably a chievable to obtain optimal diagnostic quality images. DICOM format image data is available electro nically for review and comparison. FINDINGS: There is a stable right temporal lobe hematoma which measures 3.9 cm in greatest dimension. Stable bi parietal subarachnoid hemorrhage is also noted. No acute hemorrhage or new midline shift is noted. Th e ventricles are stable. There are prominent bilateral frontal subdural hygromas which are stable. CONCLUSION: 1. No significant change compared to 06/09/17. 2. Stable prominent right temporal lobe hematoma and biparietal subarachnoid hemorrhage. 3. Stable bilateral frontal subdural hygromas. Pan Holguin MD on June 11, 2017 at 18:52 Board Certified Radiologist. This report was verified electronically.
[2017-06-11] MEDS: CHLORHEXIDINE 0.12% (ORAL KIT) 15 ML CUP MT SCH (20:00)
[2017-06-11] MEDS: SODIUM CHLORIDE 0.9% FLUSH 10 ML FLUSH IV FLUSH PRN (20:16)
[2017-06-11] MEDS: AMIODARONE INJ 450 MG in DEXTROSE 5% IN WATE(EXCEL) INJ 241 ML IV PRN ×2 (22:28)
[2017-06-12] VITALS (19 sets, daily range): BP systolic 93–131; BP diastolic 55–66; PULSE 82–102; RESP 18–28; TEMP 98.8–100.3; O2SAT 94–100
[2017-06-12] MEDS: VALPROATE INJ 500 MG in SODIUM CHLORIDE 0.9% INJ 100 ML IV SCH (03:14)
[2017-06-12] MEDS: CHLORHEXIDINE GLUCONATE 2 % 1 PACK (2 CLOTHS) TOP SCH (04:00)
[2017-06-12] MEDS: AMIODARONE INJ 450 MG in DEXTROSE 5% IN WATE(EXCEL) INJ 241 ML IV PRN ×4 (04:59→22:04)
[2017-06-12] MEDS: levETIRAcetam INJ 500 MG in SODIUM CHLORIDE 0.9% INJ 100 ML IV SCH ×2 (04:59→16:46)
[2017-06-12] MEDS: MANNITOL 12.5 GM/50 ML VIAL IV SCH (05:00)
[2017-06-12 05:45] LABS: AUTOMATED NEUTROPHIL # 7.7 TH/MM3 (1.8-7.7); BASOPHIL # 0.1 TH/MM3 (0-0.2); BASOPHIL % 0.5 % (0.0-2.0); EOSINOPHIL # 0.2 TH/MM3 (0-0.4); EOSINOPHIL % 2.2 % (0.0-4.0); HEMATOCRIT 33.3 % (39.0-51.0); HEMOGLOBIN 11.5 GM/DL (13.0-17.0); LYMPH % 16.4 % (9.0-44.0); LYMPHOCYTE # 1.8 TH/MM3 (1.0-4.8); MEAN CELL VOLUME 95.3 FL (80.0-100.0); MEAN CORPUSCULAR HEMOGLOBIN 32.7 PG (27.0-34.0); MEAN CORPUSCULAR HGB CONC 34.4 % (32.0-36.0); MEAN PLATELET VOLUME 8.8 FL (7.0-11.0); MONO % 11.5 % (0.0-8.0); MONOCYTE # 1.3 TH/MM3 (0-0.9); NEUT % 69.4 % (16.0-70.0); PLATELET COUNT 153 TH/MM3 (150-450); RED CELL DISTRIBUTION WIDTH 12.8 % (11.6-17.2); WHITE BLOOD COUNT 11.1 TH/MM3 (4.0-11.0)
[2017-06-12] MEDS: QUEtiapine FUMARATE 25 MG TAB PO SCH (06:00)
[2017-06-12 06:06] LABS: ALT (GPT) 15 U/L (12-78); AST (GOT) 26 U/L (15-37); BLOOD UREA NITROGEN 21 MG/DL (7-18); CALCIUM 8.4 MG/DL (8.5-10.1); CHLORIDE 111 MEQ/L (98-107); CREATININE 1.45 MG/DL (0.60-1.30); GLOMERULAR FILTRATION RATE 49 ML/MIN (>89); GLUCOSE,RANDOM 136 MG/DL (74-106); SODIUM (NA) 145 MEQ/L (136-145)
[2017-06-12 06:13] LABS: ALKALINE PHOSPHATASE 58 U/L (45-117); TOTAL BILIRUBIN ADULT 2.4 MG/DL (0.2-1.0); TOTAL PROTEIN 6.1 GM/DL (6.4-8.2)
[2017-06-12] MEDS ORDERED: MAGNESIUM SULFATE INJ 2 GM in SODIUM CHLORIDE 0.9% INJ 96 ML IV PRN (06:15)
[2017-06-12] MEDS ORDERED: POTASSIUM PHOSPHATE MONOBASIC 500 MG TAB PO PRN (06:15)
[2017-06-12] MEDS ORDERED: MAGNESIUM OXIDE 400 MG TAB PO PRN (06:15)
[2017-06-12] MEDS ORDERED: POTASSIUM PHOSPHATE INJ 30 MMOL in SODIUM CHLOR 0.9% 250 ML INJ 250 ML IV PRN (06:15)
[2017-06-12] MEDS ORDERED: SODIUM PHOSPHATE INJ 30 MMOL in SODIUM CHLOR 0.9% 250 ML INJ 240 ML IV PRN (06:15)
[2017-06-12] MEDS ORDERED: POTASSIUM CHLOR 20 MEQ PREMIX 100 ML IV PRN ×2 (06:15)
[2017-06-12] MEDS ORDERED: POTASSIUM CHLOR 40 MEQ PREMIX 100 ML IV PRN (06:15)
[2017-06-12] MEDS ORDERED: MAGNESIUM SULFATE INJ 4 GM in SODIUM CHLORIDE 0.9% INJ 92 ML IV PRN (06:15)
[2017-06-12] MEDS ORDERED: POTASSIUM PHOSPHATE MONOBASIC 500 MG TAB PO/TUBE PRN (06:15)
[2017-06-12] MEDS: INSULIN ASPART SUPPLEMENTAL SCALE SQ SCH ×4 (06:20→18:00)
[2017-06-12] MEDS: POTASSIUM CHLOR 40 MEQ PREMIX 100 ML IV PRN ×2 (06:27→14:04)
[2017-06-12] MEDS: NOREPINEPHRINE INJ 4 MG in SODIUM CHLOR 0.9% 250 ML INJ 246 ML IV PRN (06:30)
--- NOTE | 2017-06-12 08:26 | RADRPT ---
EXAM DATE/TIME: 06/12/2017 08:12 [place] COMPARISON: CT BRAIN W/O CONTRAST, June 11, 2017, 18:34. INDICATIONS : Follow up trauma / bilateral subdural hematomas. RADIATION DOSE: 50.80 CTDIvol (mGy) MEDICAL HISTORY : Non-responsive. SURGICAL HISTORY : Non-responsive. ENCOUNTER: Subsequent ACUITY: 4 - 6 days PAIN SCALE: Non-responsive LOCATION: cranial TECHNIQUE: Multiple contiguous axial images were obtained of the head. Using automated exposure control and adj ustment of the mA and/or kV according to patient size, radiation dose was kept as low as reasonably a chievable to obtain optimal diagnostic quality images. DICOM format image data is available electro nically for review and comparison. FINDINGS: Evolving right temporal lobe hematoma measuring up to 3.9 cm unchanged in size from prior exam. There is also stable subarachnoid hemorrhage overlying the frontoparietal high convexities. Stable bifront al subdural hygromas. No evidence for intercurrent hemorrhage. There is no significant midline shift. Ventricles are stable in size without evidence of hydrocephalus or intraventricular hemorrhage. Basi lar cisterns are maintained. Remainder of the exam is unchanged. CONCLUSION: 1. No significant interval change. 2. Stable right temporal lobe hematoma and subarachnoid hemorrhage overlying the frontoparietal high convexities. 3. Stable bilateral frontal subdural hygromas. Vinh Charles MD on June 12, 2017 at 8:21 Board Certified Radiologist. This report was verified electronically.
[2017-06-12] MEDS: CHLORHEXIDINE 0.12% (ORAL KIT) 15 ML CUP MT SCH ×2 (08:53→20:00)
[2017-06-12] MEDS: SODIUM CHLOR 0.9% 1000 ML INJ 1,000 ML IV SCH ×3 (08:53→16:47)
[2017-06-12] MEDS: POLYETHYLENE GLYCOL 17 GM PKG PO SCH (09:00)
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
[2017-06-12] MEDS: RESP: ALBUTEROL 2.5 MG/IPRATROPIUM 0.5 MG NEB (SCH) NEB ×3 (09:41→21:46)
[2017-06-12] MEDS: MAGNESIUM HYDROXIDE SUSP 30 ML CUP PO SCH ×2 (10:15→22:01)
[2017-06-12] MEDS: DOCUSATE SODIUM 50 MG/SENNA 8.6 MG TAB PO SCH ×2 (10:15→22:02)
[2017-06-12] MEDS: FAMOTIDINE 20 MG/2 ML VIAL IV PUSH SCH ×2 (10:15→22:01)
[2017-06-12] MEDS: chlordiazePOXIDE 25 MG CAP PO SCH ×3 (10:15→18:15)
[2017-06-12] MEDS: GABAPENTIN 100 MG CAP PO SCH ×3 (10:15→18:15)
[2017-06-12] MEDS: LACTULOSE SYRUP 20 GM/30 ML CUP PO SCH (10:15)
[2017-06-12] MEDS: BENEPROTEIN POWDER 1 PACK G-TUBE SCH ×3 (10:16→18:16)
[2017-06-12] MEDS: BACITRACIN TOP OINT 15 GM TUBE TOPICAL SCH ×2 (10:17→21:00)
[2017-06-12] MEDS: THIAMINE INJ 100 MG in SODIUM CHLORIDE 0.9% INJ 100 ML IV SCH (10:26)
[2017-06-12] MEDS: HEPARIN SODIUM - SQ 10,000 UNITS/ML VIAL SQ SCH ×2 (10:26→22:02)
[2017-06-12 12:32] LABS: SODIUM (NA) 146 MEQ/L (136-145); TROPONIN I LESS THAN 0.02 NG/ML (0.02-0.05)
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
--- NOTE | 2017-06-12 13:35 | EKG ---
Date Performed: 06/11/2017 Time Performed: 17:23:07 PTAGE: 61 years EKG: SINUS TACHYCARDIA WITH FIRST DEGREE AV BLOCK WITH OCCASIONAL VENTRICULAR PREMATURE COMPLEXE S WITH OCCASIONAL SUPRAVENTRICULAR PREMATURE COMPLEXES POSSIBLE LEFT ATRIAL ENLARGEMENT MINIMAL ST DE PRESSION ABNORMAL ECG Compared to PREVIOUS TRACING , rhythm has changed from atrial fibrillation to Sinus rhythm with first degree AV block. PREVIOUS TRACIN06/07/2017 01.53 DOCTOR: Bobby Pride Interpretating Date/Time 06/12/2017 13:35:02
--- NOTE | 2017-06-12 13:35 | EKG ---
Date Performed: 06/11/2017 Time Performed: 12:55:24 PTAGE: 61 years EKG: Atrial fibrillation with rapid ventricular response Poor R wave progression - probable norm al variant Lateral ST-T changes are nonspecific Abnormal ECG Compared to PREVIOUS TRACING , Sinus rhythm has been replaced with atrial fibrillation with a rapid ventricular response. PREVIOUS TRACING 06/07 01.53.18 DOCTOR: Bobby Pride Interpretating Date/Time 06/12/2017 13:34:23
[2017-06-12] MEDS ORDERED: PROPOFOL 1000 MG/100 ML INJ 100 ML IV PRN (13:45)
[2017-06-12 18:46] LABS: SODIUM (NA) 148 MEQ/L (136-145)
[2017-06-12 18:56] LABS: TROPONIN I LESS THAN 0.02 NG/ML (0.02-0.05)
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
[2017-06-13] VITALS (21 sets, daily range): BP systolic 103–170; BP diastolic 61–79; PULSE 80–113; RESP 16–29; TEMP 98.6–99.6; O2SAT 91–100
[2017-06-13 03:07] LABS: SODIUM (NA) 150 MEQ/L (136-145)
[2017-06-13 03:11] LABS: TROPONIN I LESS THAN 0.02 NG/ML (0.02-0.05)
[2017-06-13] MEDS: RESP: ALBUTEROL 2.5 MG/IPRATROPIUM 0.5 MG NEB (SCH) NEB ×4 (03:20→20:22)
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
[2017-06-13] MEDS: CHLORHEXIDINE GLUCONATE 2 % 1 PACK (2 CLOTHS) TOP SCH (04:00)
[2017-06-13] MEDS: levETIRAcetam INJ 500 MG in SODIUM CHLORIDE 0.9% INJ 100 ML IV SCH ×2 (04:20→16:27)
[2017-06-13 04:50] LABS: ALBUMIN 1.9 GM/DL (3.4-5.0); ALT (GPT) 18 U/L (12-78); AST (GOT) 32 U/L (15-37); BLOOD UREA NITROGEN 22 MG/DL (7-18); CALCIUM 8.4 MG/DL (8.5-10.1); CHLORIDE 117 MEQ/L (98-107); CREATININE 1.45 MG/DL (0.60-1.30); GLOMERULAR FILTRATION RATE 49 ML/MIN (>89); GLUCOSE,RANDOM 148 MG/DL (74-106); MAGNESIUM 1.9 MG/DL (1.5-2.5); SODIUM (NA) 149 MEQ/L (136-145)
[2017-06-13 04:52] LABS: ALKALINE PHOSPHATASE 61 U/L (45-117); TOTAL BILIRUBIN ADULT 0.9 MG/DL (0.2-1.0); TOTAL PROTEIN 5.9 GM/DL (6.4-8.2)
[2017-06-13] MEDS ORDERED: DOPamine INJ PREMIX 500 ML IV ONE (05:00)
[2017-06-13] MEDS ORDERED: CALCIUM CHLORIDE 10% SOLN 1 GRAM/10 ML SYR IV ONE (05:00)
[2017-06-13] MEDS ORDERED: EPINEPHrine HCL (1:1000) 30 MG/30 ML VIAL IV ONE (05:00)
[2017-06-13] MEDS ORDERED: SODIUM BICARBONATE 8.4% INJ 50 MEQ/50 ML SYR IV ONE (05:00)
[2017-06-13] MEDS ORDERED: EPINEPHrine HCL (1:10,000) 1 MG/10 ML SYRINGE IV ONE (05:00)
[2017-06-13] MEDS: HALOPERIDOL LACTATE 5 MG/ML AMP IV PUSH PRN (05:21)
[2017-06-13] MEDS: HYDROmorphone HCL PF 1 MG/ML VIAL IVP PRN (05:21)
[2017-06-13] MEDS: INSULIN ASPART SUPPLEMENTAL SCALE SQ SCH ×5 (05:22→23:50)
[2017-06-13 06:01] LABS: AUTOMATED NEUTROPHIL # 6.3 TH/MM3 (1.8-7.7); BASOPHIL % 0.4 % (0.0-2.0); EOSINOPHIL # 0.2 TH/MM3 (0-0.4); EOSINOPHIL % 2.2 % (0.0-4.0); HEMOGLOBIN 10.8 GM/DL (13.0-17.0); LYMPH % 18.2 % (9.0-44.0); LYMPHOCYTE # 1.6 TH/MM3 (1.0-4.8); MEAN CELL VOLUME 95.8 FL (80.0-100.0); MEAN CORPUSCULAR HEMOGLOBIN 32.2 PG (27.0-34.0); MEAN CORPUSCULAR HGB CONC 33.6 % (32.0-36.0); MONO % 9.4 % (0.0-8.0); MONOCYTE # 0.8 TH/MM3 (0-0.9); NEUT % 69.8 % (16.0-70.0); PLATELET COUNT 124 TH/MM3 (150-450); RED BLOOD COUNT 3.34 MIL/MM3 (4.50-5.90); RED CELL DISTRIBUTION WIDTH 13.1 % (11.6-17.2)
[2017-06-13] MEDS: CHLORHEXIDINE 0.12% (ORAL KIT) 15 ML CUP MT SCH ×2 (08:19→20:00)
[2017-06-13] MEDS: THIAMINE INJ 100 MG in SODIUM CHLORIDE 0.9% INJ 100 ML IV SCH (08:19)
[2017-06-13] MEDS: LACTULOSE SYRUP 20 GM/30 ML CUP PO SCH (08:19)
[2017-06-13] MEDS: SODIUM CHLOR 0.9% 1000 ML INJ 1,000 ML IV SCH ×4 (08:19→21:40)
[2017-06-13] MEDS: BENEPROTEIN POWDER 1 PACK G-TUBE SCH ×3 (08:19→16:39)
[2017-06-13] MEDS: MAGNESIUM HYDROXIDE SUSP 30 ML CUP PO SCH ×2 (08:20→20:44)
[2017-06-13] MEDS: DOCUSATE SODIUM 50 MG/SENNA 8.6 MG TAB PO SCH ×2 (08:20→20:44)
[2017-06-13] MEDS: POLYETHYLENE GLYCOL 17 GM PKG PO SCH (08:20)
[2017-06-13] MEDS: BACITRACIN TOP OINT 15 GM TUBE TOPICAL SCH ×2 (08:21→20:45)
[2017-06-13] MEDS ORDERED: ROCURONIUM INJ 50 MG/5 ML VIAL IV ONE (08:45)
[2017-06-13] MEDS ORDERED: PROPOFOL 1000 MG/100 ML INJ 100 ML IV PRN (08:45)
[2017-06-13] MEDS: GABAPENTIN 100 MG CAP PO SCH ×3 (08:49→16:39)
[2017-06-13] MEDS: FAMOTIDINE 20 MG/2 ML VIAL IV PUSH SCH ×2 (08:49→20:44)
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
[2017-06-13] MEDS ORDERED: EPINEPHrine HCL (1:1000) 1 MG/ML VIAL ONE (08:56)
[2017-06-13] MEDS ORDERED: EPINEPHrine HCL (1:10,000) 1 MG/10 ML SYRINGE ONE (08:57)
[2017-06-13] MEDS ORDERED: TERBUTALINE INJ 1 MG/ML AMP SQ PRN (09:00)
[2017-06-13] MEDS ORDERED: DOPamine INJ PREMIX 500 ML IV PRN (09:00)
[2017-06-13] MEDS: NOREPINEPHRINE INJ 4 MG in SODIUM CHLOR 0.9% 250 ML INJ 246 ML IV PRN ×2 (09:30→10:45)
--- NOTE | 2017-06-13 09:33 | PD.PROCEDR ---
Procedure Note Procedure CPR NOTE CPR started immediately after patient developed Asystole. Received total of 5 mg of epinephrine, calcium chloride, 2 Amps of bicarbonate during the code. Rhythm check at 12 minutes showed coarse V. TAC/V Fib with appearance of torsade. Shocked at 360J and magnesium 2 g IV given. ROSC in 14 min and placed on 2 mcg/m of epinephrine, 20 mcg/m of Levophed. Chelsea Crisostomo MD Jun 13, 2017 09:33
--- NOTE | 2017-06-13 09:39 | PD.PROCEDR ---
Procedure Note Procedure Procedure Right femoral arterial line placement: Procedure done emergently after code blue. The patient was placed optimal position. The area was exposed and cleansed with ChloraPrep, times two. Under sterile conditions including cap, face mask, sterile gloves, and sterile drape introducer needle was inserted into the right femoral artery and arterial flash was obtained. The guide wire was then advanced without any restriction and the needle was removed. Using Seldinger technique the single lumen arterial catheter was advanced over the guide wire and then the guide wire was removed. Antibiotic disc was placed around central line at puncture site. Arterial line was secured to the skin with one interrupted 2.0 silk sutures. The area was bandaged with sterile see-through bandage. Good arterial wave form obtained. blood loss was less than 2 ml Chelsea Crisostomo MD Jun 13, 2017 09:39
[2017-06-13] MEDS ORDERED: SODIUM BICARBONATE 8.4% INJ 50 MEQ/50 ML SYR IV PUSH ONE ×2 (09:45)
[2017-06-13] MEDS ORDERED: PHENYLEPHRINE HCL 10 MG/ML VIAL ONE ×3 (09:47→13:38)
[2017-06-13] MEDS ORDERED: SODIUM BICARBONATE 8.4% INJ 150 MEQ in WATER STERILE FOR INJ 850 ML IV SCH (10:00)
[2017-06-13] MEDS ORDERED: VASOPRESSIN INJ 40 UNITS in DEXTROSE 5% IN WATER 100ML INJ 98 ML IV SCH ×2 (10:00)
[2017-06-13 10:04] LABS: HEMATOCRIT 31.1 % (39.0-51.0); HEMOGLOBIN 10.1 GM/DL (13.0-17.0); MEAN CELL VOLUME 99.2 FL (80.0-100.0); MEAN CORPUSCULAR HEMOGLOBIN 32.3 PG (27.0-34.0); MEAN CORPUSCULAR HGB CONC 32.6 % (32.0-36.0); MEAN PLATELET VOLUME 8.9 FL (7.0-11.0); PLATELET COUNT 140 TH/MM3 (150-450); RED BLOOD COUNT 3.14 MIL/MM3 (4.50-5.90); RED CELL DISTRIBUTION WIDTH 13.3 % (11.6-17.2); WHITE BLOOD COUNT 12.2 TH/MM3 (4.0-11.0)
[2017-06-13 10:35] LABS: ALBUMIN 1.6 GM/DL (3.4-5.0); ALKALINE PHOSPHATASE 68 U/L (45-117); ALT (GPT) 29 U/L (12-78); AST (GOT) 77 U/L (15-37); BICARBONATE 18.6 MEQ/L (21.0-32.0); BLOOD UREA NITROGEN 24 MG/DL (7-18); CALCIUM 9.1 MG/DL (8.5-10.1); CHLORIDE 118 MEQ/L (98-107); CREATININE 2.07 MG/DL (0.60-1.30); GLOMERULAR FILTRATION RATE 33 ML/MIN (>89); GLUCOSE,RANDOM 197 MG/DL (74-106); SODIUM (NA) 152 MEQ/L (136-145); TOTAL BILIRUBIN ADULT 0.7 MG/DL (0.2-1.0); TOTAL PROTEIN 5.4 GM/DL (6.4-8.2); TROPONIN I LESS THAN 0.02 NG/ML (0.02-0.05)
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
[2017-06-13] MEDS ORDERED: ALBUMIN 25% INJ 50 ML IV ONE (11:00)
[2017-06-13] MEDS ORDERED: SODIUM CHLOR 0.9% 1000 ML INJ 1,000 ML IV ONE (11:00)
[2017-06-13] MEDS: HEPARIN SODIUM - SQ 10,000 UNITS/ML VIAL SQ SCH ×2 (11:25→20:44)
[2017-06-13] MEDS: PIPERACIL-TAZO 4.5 GM PREMIX 100 ML IV SCH ×3 (11:25→20:44)
[2017-06-13] MEDS: VASOPRESSIN INJ 40 UNITS in DEXTROSE 5% IN WATER 100ML INJ 98 ML IV SCH ×2 (15:00)
[2017-06-13] MEDS ORDERED: PHENYLEPHRINE 40 MG in D5W 500 ML IV PRN (15:00)
[2017-06-13] MEDS ORDERED: EPINEPHrine 2 MG/D5W 250 ML IV PRN ×2 (15:00)
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
[2017-06-13] MEDS: hydrALAZINE HCL 20 MG/ML VIAL IV PUSH PRN (20:54)
[2017-06-14] VITALS (18 sets, daily range): BP systolic 134–150; BP diastolic 64–74; PULSE 78–107; RESP 16–23; TEMP 97.6–98.8; O2SAT 99–100
[2017-06-14] MEDS: hydrALAZINE HCL 20 MG/ML VIAL IV PUSH PRN ×2 (02:34→13:00)
[2017-06-14] MEDS: SODIUM CHLOR 0.9% 1000 ML INJ 1,000 ML IV SCH ×2 (02:35→15:06)
[2017-06-14] MEDS: PIPERACIL-TAZO 4.5 GM PREMIX 100 ML IV SCH ×4 (02:35→20:55)
[2017-06-14] MEDS: VASOPRESSIN INJ 40 UNITS in DEXTROSE 5% IN WATER 100ML INJ 98 ML IV SCH ×2 (02:48)
[2017-06-14] MEDS: CHLORHEXIDINE GLUCONATE 2 % 1 PACK (2 CLOTHS) TOP SCH (04:00)
[2017-06-14] MEDS: RESP: ALBUTEROL 2.5 MG/IPRATROPIUM 0.5 MG NEB (SCH) NEB ×5 (04:01→19:55)
[2017-06-14] MEDS: levETIRAcetam INJ 500 MG in SODIUM CHLORIDE 0.9% INJ 100 ML IV SCH ×2 (04:46→16:26)
[2017-06-14 05:07] LABS: AUTOMATED NEUTROPHIL # 6.8 TH/MM3 (1.8-7.7); BASOPHIL % 0.4 % (0.0-2.0); EOSINOPHIL % 0.1 % (0.0-4.0); HEMATOCRIT 28.9 % (39.0-51.0); LYMPH % 9.1 % (9.0-44.0); LYMPHOCYTE # 0.8 TH/MM3 (1.0-4.8); MEAN CELL VOLUME 94.7 FL (80.0-100.0); MEAN CORPUSCULAR HEMOGLOBIN 32.7 PG (27.0-34.0); MEAN CORPUSCULAR HGB CONC 34.5 % (32.0-36.0); MEAN PLATELET VOLUME 8.3 FL (7.0-11.0); MONO % 9.5 % (0.0-8.0); MONOCYTE # 0.8 TH/MM3 (0-0.9); NEUT % 80.9 % (16.0-70.0); PLATELET COUNT 87 TH/MM3 (150-450); RED BLOOD COUNT 3.05 MIL/MM3 (4.50-5.90); RED CELL DISTRIBUTION WIDTH 12.9 % (11.6-17.2); WHITE BLOOD COUNT 8.4 TH/MM3 (4.0-11.0)
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
[2017-06-14 05:30] LABS: ALBUMIN 1.6 GM/DL (3.4-5.0); ALT (GPT) 30 U/L (12-78); AST (GOT) 59 U/L (15-37); BICARBONATE 25.6 MEQ/L (21.0-32.0); BLOOD UREA NITROGEN 30 MG/DL (7-18); CALCIUM 8.4 MG/DL (8.5-10.1); CHLORIDE 116 MEQ/L (98-107); CREATININE 1.56 MG/DL (0.60-1.30); GLOMERULAR FILTRATION RATE 45 ML/MIN (>89); GLUCOSE,RANDOM 155 MG/DL (74-106); MAGNESIUM 2.1 MG/DL (1.5-2.5); SODIUM (NA) 149 MEQ/L (136-145)
[2017-06-14 05:33] LABS: ALKALINE PHOSPHATASE 51 U/L (45-117); TOTAL PROTEIN 5.5 GM/DL (6.4-8.2)
[2017-06-14] MEDS: INSULIN ASPART SUPPLEMENTAL SCALE SQ SCH ×3 (06:00→17:41)
[2017-06-14 07:14] LABS: BANDS 17 % (0-6); LYMPHOCYTES 4 % (9-44); MONOCYTES 6 % (0-8); NEUTROPHIL # MANUAL DIFF 7.6 TH/MM3 (1.8-7.7); POLYS (SEG NEUTROPHILS) 73 % (16-70)
[2017-06-14] MEDS: CHLORHEXIDINE 0.12% (ORAL KIT) 15 ML CUP MT SCH ×2 (08:00→23:49)
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
[2017-06-14] MEDS: HEPARIN SODIUM - SQ 10,000 UNITS/ML VIAL SQ SCH ×2 (08:12→20:56)
[2017-06-14] MEDS: BENEPROTEIN POWDER 1 PACK G-TUBE SCH ×3 (08:12→18:00)
[2017-06-14] MEDS: FAMOTIDINE 20 MG/2 ML VIAL IV PUSH SCH ×2 (08:12→20:55)
[2017-06-14] MEDS: LACTULOSE SYRUP 20 GM/30 ML CUP PO SCH (08:13)
[2017-06-14] MEDS: MAGNESIUM HYDROXIDE SUSP 30 ML CUP PO SCH ×2 (08:13→21:00)
[2017-06-14] MEDS: POLYETHYLENE GLYCOL 17 GM PKG PO SCH (08:13)
[2017-06-14] MEDS: BACITRACIN TOP OINT 15 GM TUBE TOPICAL SCH ×2 (08:13→21:00)
[2017-06-14] MEDS: DOCUSATE SODIUM 50 MG/SENNA 8.6 MG TAB PO SCH ×2 (08:13→21:00)
--- NOTE | 2017-06-14 08:53 | ECHRPT ---
Indication: CONCLUSIONS Technically difficult studyThe left ventricular systolic function is hyperdynamic with an estimated ejection fraction in the range of 65-70%. Doppler parameters are consistent with impaired left ventricular relaxtion (grade 1 diastolic dysfun ction). Trace mitral valve regurgitation. There is trace tricuspid valve regurgitation. Moderate left pleural effusion. BP: / HR: Rhythm: MEASUREMENTS (Male / Female) Normal Values Technical Quality:Fair 2D ECHO LV Diastolic Diameter PLAX 3.3 cm 4.2 - 5.9 / 3.9 - 5.3 cm LV Systolic Diameter PLAX 2.3 cm IVS Diastolic Thickness 1.2 cm 0.6 - 1.0 / 0.6 - 0.9 cm LVPW Diastolic Thickness 0.6 cm 0.6 - 1.0 / 0.6 - 0.9 cm LV Relative Wall Thickness 0.6 RV Internal Dim ED PLAX 2.0 cm LA Systolic Diameter LX 3.3 cm 3.0 - 4.0 / 2.7 - 3.8 cm DOPPLER AV Peak Velocity 191.3 cm/s AV Peak Gradient 14.6 mmHg LVOT Peak Velocity 131.0 cm/s LVOT Peak Gradient 6.9 mmHg Mitral E Point Velocity 68.5 cm/s Mitral A Point Velocity 86.4 cm/s Mitral E to A Ratio 0.8 TR Peak Velocity 194.0 cm/s TR Peak Gradient 15.1 mmHg FINDINGS LEFT VENTRICLE Normal left ventricular size. Wall thickness is normal. The left ventricular systolic function is hyperdynamic with an estimated ejection fraction in the ra nge of 65- 70%. No regional wall motion abnormalities are present. Doppler parameters are consistent with impaired left ventricular relaxtion (grade 1 diastolic dysfun ction). RIGHT VENTRICLE Overall right ventricle not well visualized. Most likely normal function or mildly depressed at most. LEFT ATRIUM The left atrial size is normal. RIGHT ATRIUM The right atrium is not well visualized. ATRIAL SEPTUM The interatrial septum not well visualized. AORTA The aortic root and proximal ascending aorta are not well visualized. MITRAL VALVE Structurally normal mitral valve. Trace mitral valve regurgitation. No mitral valve stenosis. AORTIC VALVE Grossly normal aortic valve. No aortic valve stenosis or regurgitation. TRICUSPID VALVE Structurally normal tricuspid valve. There is trace tricuspid valve regurgitation. No tricuspid valve stenosis. PULMONARY VALVE The pulmonary valve is not well visualized. PERICARDIUM There is a trivial pericardial effusion present. Moderate left pleural effusion. Mati Stephens DO Edited by: [employer] Oil Driller (Electronically Signed) Final Date:13 June 2017 12:23 Amended: 14 June 2017 08:52
[2017-06-14] MEDS: THIAMINE INJ 100 MG in SODIUM CHLORIDE 0.9% INJ 100 ML IV SCH (09:00)
[2017-06-14] MEDS ORDERED: Vancomycin Consult Pharmacy 1 EA OTHER SCH (09:30)
[2017-06-14] MEDS: FREE WATER G-TUBE SCH ×2 (12:00→18:00)
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
[2017-06-14] MEDS ORDERED: VANCOMYCIN INJ 1,000 MG in SODIUM CHLOR 0.9% 250 ML INJ 250 ML IV SCH (13:00)
[2017-06-14] MEDS ORDERED: IOHEXOL 350 MG/ML 10 ML VIAL (for RAD DIAG) IVCONTRAST ONE (13:23)
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
--- NOTE | 2017-06-14 13:36 | RADRPT ---
EXAM DATE/TIME: 06/14/2017 12:53 [facility] COMPARISON: No previous studies available for comparison. INDICATIONS : Evaluate for pulmonary embolis IV CONTRAST: 75 cc Omnipaque 350 (iohexol) IV RADIATION DOSE: 23.41 CTDIvol (mGy) MEDICAL HISTORY : None SURGICAL HISTORY : Lap band, adrenal gland ENCOUNTER: Initial ACUITY: 1 day PAIN SCALE: Non-responsive LOCATION: chest TECHNIQUE: Volumetric scanning of the chest was performed using a pulmonary embolism protocol MIP images were re constructed. Using automated exposure control and adjustment of the mA and/or kV according to patien t size, radiation dose was kept as low as reasonably achievable to obtain optimal diagnostic quality images. DICOM format image data is available electronically for review and comparison. Follow-up recommendations for detected pulmonary nodules are based at a minimum on nodule size and pa tient risk factors according to Fleischner Society Guidelines. FINDINGS: PULMONARY ARTERIES: No filling defects are seen in the pulmonary arteries through the segmental level. LUNGS: Consolidating airspace disease is identified in both lower lobes. Mild vascular congestive changes ar e seen in the upper lobes. PLEURAE: There is no pleural thickening or pleural effusion. MEDIASTINUM: There is good visualization of the great vessels of the middle mediastinum. No evidence of mediastin al or hilar adenopathy/mass. MUSCULOSKELETAL: Within normal limits for patient age. MISCELLANEOUS: The visualized upper abdominal organs demonstrate no acute abnormality. CONCLUSION: 1. No evidence of acute pulmonary embolism. 2. Dense consolidating bibasilar airspace disease. 3. Mild upper lobe vascular congestion. 4. Endotracheal and nasogastric tubes in place. Jairo Mills MD on June 14, 2017 at 13:31 Board Certified Radiologist. This report was verified electronically.
--- NOTE | 2017-06-14 13:58 | RADRPT ---
EXAM DATE/TIME: 06/14/2017 12:55 [facility] COMPARISON: CT BRAIN W/O CONTRAST, June 12, 2017, 8:12. INDICATIONS : Evaluate bleed RADIATION DOSE: 56.35 CTDIvol (mGy) MEDICAL HISTORY : None SURGICAL HISTORY : adrenal gland removed, lap band ENCOUNTER: Subsequent ACUITY: 1 week PAIN SCALE: Non-responsive LOCATION: cranial TECHNIQUE: Multiple contiguous axial images were obtained of the head. Using automated exposure control and adj ustment of the mA and/or kV according to patient size, radiation dose was kept as low as reasonably a chievable to obtain optimal diagnostic quality images. DICOM format image data is available electro nically for review and comparison. FINDINGS: CEREBRUM: Stable parenchymal hemorrhage with a hematocrit level in the anterior aspect of the right temporal lo be. Lesion measures approximately 4.9 cm in the greatest AP dimension. Subarachnoid blood over the hi gh parietal perivertex regions bilaterally actually shows interval improvement. No new areas of hemor rhage. No midline shift. POSTERIOR FOSSA: The cerebellum and brainstem are intact. The 4th ventricle is midline. The cerebellopontine angle i s unremarkable. EXTRACRANIAL: The visualized portion of the orbits is intact. Mucoperiosteal thickening in the right maxillary antr a and bilateral sphenoid. SKULL: The calvaria is intact. No evidence of skull fracture. CONCLUSION: 1. Parenchymal hemorrhage in the anterior aspect of the right temporal lobe with a hematocrit level i s basically stable measuring approximately 4.9 cm in greatest AP dimension. 2. Subarachnoid blood in the perivertex high parietal convexities bilaterally actually show some inte rval improvement. 3. Chronic sinusitis in the sphenoid and right maxillary antra. Carlos White MD on June 14, 2017 at 13:51 Board Certified Radiologist. This report was verified electronically.
[2017-06-14] MEDS: VANCOMYCIN 1,500 MG/NS 500 ML IV SCH ×2 (15:06)
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
--- NOTE | 2017-06-14 18:33 | EKG ---
Date Performed: 06/13/2017 Time Performed: 10:03:46 PTAGE: 61 years EKG: Atrial fibrillation with rapid ventricular response Prolonged QT interval Lateral ST-T ortega ges are nonspecific Narrow complex tachycardia, most likely atrial fibrillation though some organized atrial activity does appear present in lead V1, possibly consistent with atrial tachycardia or regul ar atrial flutter. Repeat EKG at a slower HR would be useful Abnormal ECG PREVIOUS TRACING : 06/11/2017 17.23 DOCTOR: Salinas Sanabria Interpretating Date/Time 06/14/2017 18:32:23
[2017-06-14] MEDS ORDERED: PROPOFOL 1000 MG/100 ML INJ 100 ML IV PRN (20:00)
[2017-06-15] VITALS (20 sets, daily range): BP systolic 137–160; BP diastolic 62–78; PULSE 80–101; RESP 16–20; TEMP 97.8–98.7; O2SAT 98–100
[2017-06-15] MEDS: RESP: ALBUTEROL 2.5 MG/IPRATROPIUM 0.5 MG NEB (SCH) NEB ×6 (00:19→19:33)
[2017-06-15] MEDS: PIPERACIL-TAZO 4.5 GM PREMIX 100 ML IV SCH ×4 (03:10→20:57)
[2017-06-15] MEDS: CHLORHEXIDINE GLUCONATE 2 % 1 PACK (2 CLOTHS) TOP SCH (04:00)
[2017-06-15 05:30] LABS: BASOPHIL % 0.3 % (0.0-2.0); EOSINOPHIL # 0.3 TH/MM3 (0-0.4); HEMATOCRIT 28.1 % (39.0-51.0); HEMOGLOBIN 9.6 GM/DL (13.0-17.0); LYMPH % 14.5 % (9.0-44.0); LYMPHOCYTE # 1.4 TH/MM3 (1.0-4.8); MEAN CELL VOLUME 95.4 FL (80.0-100.0); MEAN CORPUSCULAR HEMOGLOBIN 32.7 PG (27.0-34.0); MEAN CORPUSCULAR HGB CONC 34.2 % (32.0-36.0); MONO % 8.9 % (0.0-8.0); MONOCYTE # 0.8 TH/MM3 (0-0.9); NEUT % 73.3 % (16.0-70.0); PLATELET COUNT 104 TH/MM3 (150-450); RED BLOOD COUNT 2.94 MIL/MM3 (4.50-5.90); RED CELL DISTRIBUTION WIDTH 13.2 % (11.6-17.2); WHITE BLOOD COUNT 9.5 TH/MM3 (4.0-11.0)
[2017-06-15 05:53] LABS: ALBUMIN 1.5 GM/DL (3.4-5.0); AST (GOT) 43 U/L (15-37); BICARBONATE 26.2 MEQ/L (21.0-32.0); BLOOD UREA NITROGEN 34 MG/DL (7-18); CALCIUM 8.1 MG/DL (8.5-10.1); CHLORIDE 116 MEQ/L (98-107); CREATININE 1.36 MG/DL (0.60-1.30); GLOMERULAR FILTRATION RATE 53 ML/MIN (>89); GLUCOSE,RANDOM 85 MG/DL (74-106); MAGNESIUM 2.1 MG/DL (1.5-2.5); SODIUM (NA) 150 MEQ/L (136-145)
[2017-06-15 05:54] LABS: ALT (GPT) 25 U/L (12-78)
[2017-06-15 05:58] LABS: ALKALINE PHOSPHATASE 55 U/L (45-117); TOTAL BILIRUBIN ADULT 0.6 MG/DL (0.2-1.0); TOTAL PROTEIN 5.7 GM/DL (6.4-8.2); TROPONIN I LESS THAN 0.02 NG/ML (0.02-0.05)
[2017-06-15] MEDS: FREE WATER G-TUBE SCH ×4 (06:00→18:02)
[2017-06-15] MEDS: INSULIN ASPART SUPPLEMENTAL SCALE SQ SCH ×4 (06:00→17:47)
--- NOTE | 2017-06-15 06:14 | RADRPT ---
EXAM DATE/TIME: 06/15/2017 04:43 [facility] COMPARISON: CHEST SINGLE AP, June 14, 2017, 3:30. INDICATIONS : Short of breath. MEDICAL HISTORY : None. SURGICAL HISTORY : None. ENCOUNTER: Subsequent ACUITY: 4 - 6 days PAIN SCORE: Non-responsive. LOCATION: Bilateral chest FINDINGS: ET, gastric, and central line in satisfactory position. Persistent consolidation left lower lung wit h loss of delineation entire left hemidiaphragm. Patchy infiltrates in the right lower lung. Heart is stable in size. CONCLUSION: Persistent consolidation left lower lung. Slight improvement in patchy infiltrates in the right lowe r lung. Obed Carson MD on June 15, 2017 at 6:10 Board Certified Radiologist. This report was verified electronically.
[2017-06-15] MEDS: levETIRAcetam INJ 500 MG in SODIUM CHLORIDE 0.9% INJ 100 ML IV SCH (06:29)
[2017-06-15] MEDS: MAGNESIUM HYDROXIDE SUSP 30 ML CUP PO SCH ×2 (09:00→20:56)
[2017-06-15] MEDS: DOCUSATE SODIUM 50 MG/SENNA 8.6 MG TAB PO SCH ×2 (09:00→20:56)
[2017-06-15] MEDS: POLYETHYLENE GLYCOL 17 GM PKG PO SCH (09:00)
[2017-06-15] MEDS: LACTULOSE SYRUP 20 GM/30 ML CUP PO SCH (09:00)
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
[2017-06-15] MEDS: CHLORHEXIDINE 0.12% (ORAL KIT) 15 ML CUP MT SCH ×2 (09:29→20:58)
[2017-06-15] MEDS: BENEPROTEIN POWDER 1 PACK G-TUBE SCH ×3 (09:30→18:02)
[2017-06-15] MEDS: THIAMINE INJ 100 MG in SODIUM CHLORIDE 0.9% INJ 100 ML IV SCH (09:30)
[2017-06-15] MEDS: VANCOMYCIN 1,500 MG/NS 500 ML IV SCH ×2 (09:30)
[2017-06-15] MEDS: FAMOTIDINE 20 MG/2 ML VIAL IV PUSH SCH ×2 (09:31→20:56)
[2017-06-15] MEDS: BACITRACIN TOP OINT 15 GM TUBE TOPICAL SCH ×2 (09:32→20:58)
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
[2017-06-15] MEDS ORDERED: ROCURONIUM INJ 50 MG/5 ML VIAL IV ONE (11:00)
[2017-06-15] MEDS: LACTATED RINGER'S 1000 ML INJ 1,000 ML IV SCH (11:15)
[2017-06-15] MEDS: HEPARIN SODIUM - SQ 10,000 UNITS/ML VIAL SQ SCH ×2 (11:19→20:57)
[2017-06-15] MEDS ORDERED: LACTATED RINGER'S 1000 ML INJ 1,000 ML IV ONE (17:00)
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
--- NOTE | 2017-06-15 20:45 | MG ---
cc: CRESCENCIO ESTRADA MD Lab No: Date: 06/15/17 Age: 61 Sex: M Race: REFERRING PHYSICIAN Dr. Crisostomo An EEG was obtained on this 61-year-old patient intubated with no sedation, vercuronium given 4 minutes to the EEG for EMG artifact. The previous EEG showed abnormal study with generalized slowing suggesting severe encephalopathy. This EEG study shows a lot of artifact. There is some resolution of the artifact shortly after the EEG is started and a mixture of rhythms are scene. There are theta and delta rhythms and some beta activity, but there are lack of alpha rhythms. There is some attenuation on the right hemisphere rhythms. Photic stimulation showed no change. INTERPRETATION This is a significantly abnormal EEG with bilateral slowing and attenuation. It is difficult to determine if the attenuation on the right is really the more significant abnormality. Anyway, the study suggest bilateral structural abnormalities possibly asymmetric. Overall, the left frontal rhythms are probably slower and possibly more abnormal than the attenuation on the right. There are no ictal or epileptiform type of pattern. Crescencio Estrada MD OF[facility]/ /8:23 PM /8:37 PM
[2017-06-16] VITALS (19 sets, daily range): BP systolic 125–165; BP diastolic 52–87; PULSE 73–92; RESP 15–23; TEMP 98–98.4; O2SAT 92–100
[2017-06-16] MEDS: RESP: ALBUTEROL 2.5 MG/IPRATROPIUM 0.5 MG NEB (SCH) NEB ×4 (03:06→19:40)
[2017-06-16] MEDS: CHLORHEXIDINE GLUCONATE 2 % 1 PACK (2 CLOTHS) TOP SCH (04:00)
[2017-06-16] MEDS: PIPERACIL-TAZO 4.5 GM PREMIX 100 ML IV SCH ×4 (04:29→20:47)
[2017-06-16] MEDS: VANCOMYCIN 1,500 MG/NS 500 ML IV SCH ×2 (04:29)
[2017-06-16] MEDS: HEPARIN SODIUM - SQ 10,000 UNITS/ML VIAL SQ SCH ×3 (04:30→20:46)
[2017-06-16 05:09] LABS: AUTOMATED NEUTROPHIL # 6.9 TH/MM3 (1.8-7.7); BASOPHIL % 0.4 % (0.0-2.0); EOSINOPHIL # 0.4 TH/MM3 (0-0.4); EOSINOPHIL % 3.9 % (0.0-4.0); HEMATOCRIT 29.8 % (39.0-51.0); LYMPH % 17.8 % (9.0-44.0); LYMPHOCYTE # 1.8 TH/MM3 (1.0-4.8); MEAN CELL VOLUME 95.1 FL (80.0-100.0); MEAN CORPUSCULAR HEMOGLOBIN 31.8 PG (27.0-34.0); MEAN CORPUSCULAR HGB CONC 33.5 % (32.0-36.0); MEAN PLATELET VOLUME 7.7 FL (7.0-11.0); MONO % 10.6 % (0.0-8.0); MONOCYTE # 1.1 TH/MM3 (0-0.9); NEUT % 67.3 % (16.0-70.0); PLATELET COUNT 120 TH/MM3 (150-450); RED BLOOD COUNT 3.13 MIL/MM3 (4.50-5.90); RED CELL DISTRIBUTION WIDTH 13.3 % (11.6-17.2); WHITE BLOOD COUNT 10.2 TH/MM3 (4.0-11.0)
[2017-06-16 05:31] LABS: ALBUMIN 1.5 GM/DL (3.4-5.0); ALT (GPT) 23 U/L (12-78); AST (GOT) 55 U/L (15-37); BICARBONATE 27.9 MEQ/L (21.0-32.0); BLOOD UREA NITROGEN 38 MG/DL (7-18); CALCIUM 8.5 MG/DL (8.5-10.1); CHLORIDE 113 MEQ/L (98-107); CREATININE 1.44 MG/DL (0.60-1.30); GLOMERULAR FILTRATION RATE 50 ML/MIN (>89); GLUCOSE,RANDOM 82 MG/DL (74-106); PHOSPHORUS 3.3 MG/DL (2.5-4.9); SODIUM (NA) 148 MEQ/L (136-145)
[2017-06-16 05:34] LABS: ALKALINE PHOSPHATASE 120 U/L (45-117); TOTAL BILIRUBIN ADULT 0.6 MG/DL (0.2-1.0); TOTAL PROTEIN 5.8 GM/DL (6.4-8.2)
--- NOTE | 2017-06-16 05:34 | RADRPT ---
EXAM DATE/TIME: 06/16/2017 04:34 [facility] COMPARISON: CHEST SINGLE AP, June 15, 2017, 4:43. INDICATIONS : Shortness of breath. MEDICAL HISTORY : None. SURGICAL HISTORY : Lap band, adrenal gland, knee replacement ENCOUNTER: Subsequent ACUITY: 1 week PAIN SCORE: Non-responsive. LOCATION: Bilateral chest FINDINGS: Endotracheal tube tip is 2.6 cm above the maria isabel. Left internal jugular catheter tip projects over t he mid superior vena cava. Gastric tube traverses the [id number]. There is increasing consolidat ion in the left lower lung with loss of delineation of the entire left hemidiaphragm and a portion of the left heart border. Hazy opacity of the right lower lung obscures the right hemidiaphragm sugges ting pleural effusion. CONCLUSION: Increasing consolidation in the left lower lung and probable increasing bilateral pleural effusions. Obed Carson MD on June 16, 2017 at 5:32 Board Certified Radiologist. This report was verified electronically.
[2017-06-16] MEDS: INSULIN ASPART SUPPLEMENTAL SCALE SQ SCH ×4 (06:00→18:00)
[2017-06-16] MEDS: FREE WATER G-TUBE SCH ×4 (06:00→18:31)
[2017-06-16] MEDS: LACTATED RINGER'S 1000 ML INJ 1,000 ML IV SCH ×2 (06:34→13:40)
[2017-06-16 06:57] LABS: BANDS 10 % (0-6); LYMPHOCYTES 13 % (9-44); METAMYELOCYTES 1 % (0-1); MONOCYTES 1 % (0-8); MYELOCYTES 1 % (0-0); NEUTROPHIL # MANUAL DIFF 8.1 TH/MM3 (1.8-7.7); POLYS (SEG NEUTROPHILS) 67 % (16-70)
[2017-06-16] MEDS: DOCUSATE SODIUM 50 MG/SENNA 8.6 MG TAB PO SCH ×2 (07:48→20:47)
[2017-06-16] MEDS: MAGNESIUM HYDROXIDE SUSP 30 ML CUP PO SCH ×2 (07:48→20:47)
[2017-06-16] MEDS: LACTULOSE SYRUP 20 GM/30 ML CUP PO SCH (07:48)
[2017-06-16] MEDS: BENEPROTEIN POWDER 1 PACK G-TUBE SCH ×3 (07:49→18:31)
[2017-06-16] MEDS: FAMOTIDINE 20 MG/2 ML VIAL IV PUSH SCH ×2 (07:49→20:47)
[2017-06-16] MEDS: CHLORHEXIDINE 0.12% (ORAL KIT) 15 ML CUP MT SCH ×2 (07:49→20:46)
[2017-06-16] MEDS: hydrALAZINE HCL 20 MG/ML VIAL IV PUSH PRN (07:49)
[2017-06-16] MEDS: BACITRACIN TOP OINT 15 GM TUBE TOPICAL SCH ×2 (09:00→20:47)
[2017-06-16] MEDS: THIAMINE INJ 100 MG in SODIUM CHLORIDE 0.9% INJ 100 ML IV SCH (09:03)
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
[2017-06-16] MEDS ORDERED: PHARMACY ORDERED LAB ONE (20:45)
[2017-06-16] MEDS: RESP: ALBUTEROL 2.5 MG/IPRATROPIUM 0.5 MG NEB (PRN) NEB (23:40)
[2017-06-17] VITALS (18 sets, daily range): BP systolic 96–139; BP diastolic 58–77; PULSE 87–102; RESP 19–27; TEMP 98.2–101.7; O2SAT 91–96
[2017-06-17] MEDS: FREE WATER G-TUBE SCH ×4 (00:11→17:44)
[2017-06-17] MEDS: LACTATED RINGER'S 1000 ML INJ 1,000 ML IV SCH ×2 (03:17→13:00)
[2017-06-17] MEDS: PIPERACIL-TAZO 4.5 GM PREMIX 100 ML IV SCH ×2 (03:20→08:19)
[2017-06-17] MEDS: CHLORHEXIDINE GLUCONATE 2 % 1 PACK (2 CLOTHS) TOP SCH (03:21)
[2017-06-17] MEDS: HEPARIN SODIUM - SQ 10,000 UNITS/ML VIAL SQ SCH ×3 (03:21→20:31)
[2017-06-17] MEDS: RESP: ALBUTEROL 2.5 MG/IPRATROPIUM 0.5 MG NEB (SCH) NEB ×4 (03:35→20:13)
--- NOTE | 2017-06-17 04:20 | RADRPT ---
EXAM DATE/TIME: 06/17/2017 02:35 [facility] COMPARISON: CHEST SINGLE AP, June 16, 2017, 4:34. INDICATIONS : Shortness of breath MEDICAL HISTORY : None. SURGICAL HISTORY : Lap band, adrenal gland, knee replacement ENCOUNTER: Subsequent ACUITY: 1 week PAIN SCORE: Non-responsive. LOCATION: Bilateral chest FINDINGS: ET tube tip well above the maria isabel. Gastric tube traverses the field of view. Left central line tip projects over the mid superior vena cava. There is persistent lobar consolidation left lower lung wi th loss of delineation entire left hemidiaphragm and hazy opacities in the right lower lung, also wit h loss of delineation of the right hemidiaphragm. CONCLUSION: Stable left lower lung consolidation and bilateral pleural effusions. Obed Carson MD on June 17, 2017 at 4:18 Board Certified Radiologist. This report was verified electronically.
[2017-06-17 05:55] LABS: BASOPHIL # 0.1 TH/MM3 (0-0.2); BASOPHIL % 0.6 % (0.0-2.0); EOSINOPHIL # 0.3 TH/MM3 (0-0.4); EOSINOPHIL % 2.9 % (0.0-4.0); HEMATOCRIT 30.6 % (39.0-51.0); HEMOGLOBIN 10.4 GM/DL (13.0-17.0); LYMPH % 19.5 % (9.0-44.0); MEAN CELL VOLUME 94.8 FL (80.0-100.0); MEAN CORPUSCULAR HEMOGLOBIN 32.3 PG (27.0-34.0); MEAN CORPUSCULAR HGB CONC 34.1 % (32.0-36.0); MEAN PLATELET VOLUME 7.6 FL (7.0-11.0); MONO % 10.2 % (0.0-8.0); MONOCYTE # 1.1 TH/MM3 (0-0.9); NEUT % 66.8 % (16.0-70.0); PLATELET COUNT 138 TH/MM3 (150-450); RED BLOOD COUNT 3.23 MIL/MM3 (4.50-5.90); RED CELL DISTRIBUTION WIDTH 13.4 % (11.6-17.2); WHITE BLOOD COUNT 10.5 TH/MM3 (4.0-11.0)
[2017-06-17] MEDS: INSULIN ASPART SUPPLEMENTAL SCALE SQ SCH ×4 (06:00→18:00)
[2017-06-17 06:27] LABS: ALBUMIN 1.6 GM/DL (3.4-5.0); AST (GOT) 54 U/L (15-37); BICARBONATE 28.8 MEQ/L (21.0-32.0); BLOOD UREA NITROGEN 36 MG/DL (7-18); CALCIUM 8.3 MG/DL (8.5-10.1); CHLORIDE 110 MEQ/L (98-107); CREATININE 1.41 MG/DL (0.60-1.30); GLOMERULAR FILTRATION RATE 51 ML/MIN (>89); GLUCOSE,RANDOM 81 MG/DL (74-106); SODIUM (NA) 146 MEQ/L (136-145)
[2017-06-17 06:31] LABS: ALKALINE PHOSPHATASE 123 U/L (45-117); ALT (GPT) 22 U/L (12-78); PHOSPHORUS 3.9 MG/DL (2.5-4.9); TOTAL BILIRUBIN ADULT 0.6 MG/DL (0.2-1.0); TOTAL PROTEIN 5.9 GM/DL (6.4-8.2)
[2017-06-17 07:21] LABS: BANDS 8 % (0-6); LYMPHOCYTES 17 % (9-44); MONOCYTES 6 % (0-8); POLYS (SEG NEUTROPHILS) 68 % (16-70)
[2017-06-17] MEDS: CHLORHEXIDINE 0.12% (ORAL KIT) 15 ML CUP MT SCH ×2 (08:00→20:30)
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
[2017-06-17] MEDS: THIAMINE INJ 100 MG in SODIUM CHLORIDE 0.9% INJ 100 ML IV SCH (08:18)
[2017-06-17] MEDS: FAMOTIDINE 20 MG/2 ML VIAL IV PUSH SCH ×2 (08:19→20:31)
[2017-06-17] MEDS: LACTULOSE SYRUP 20 GM/30 ML CUP PO SCH (08:19)
[2017-06-17] MEDS: DOCUSATE SODIUM 50 MG/SENNA 8.6 MG TAB PO SCH ×2 (08:19→20:31)
[2017-06-17] MEDS: BENEPROTEIN POWDER 1 PACK G-TUBE SCH ×3 (08:19→17:44)
[2017-06-17] MEDS ORDERED: VANCOMYCIN 1,500 MG/NS 500 ML IV SCH ×2 (09:00)
[2017-06-17] MEDS: BACITRACIN TOP OINT 15 GM TUBE TOPICAL SCH ×2 (09:00→20:32)
[2017-06-17] MEDS: MAGNESIUM HYDROXIDE SUSP 30 ML CUP PO SCH ×2 (09:00→20:31)
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
[2017-06-17] MEDS ORDERED: VANCOMYCIN INJ 1,250 MG in SODIUM CHLOR 0.9% 250 ML INJ 250 ML IV SCH (15:00)
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
[2017-06-17] MEDS: ACETAMINOPHEN 325 MG TAB PO PRN (17:40)
[2017-06-18] VITALS (16 sets, daily range): BP systolic 104–151; BP diastolic 55–69; PULSE 77–95; RESP 18–23; TEMP 98.3–101; O2SAT 92–100
[2017-06-18] MEDS: ACETAMINOPHEN 325 MG TAB PO PRN (01:20)
[2017-06-18] MEDS: RESP: ALBUTEROL 2.5 MG/IPRATROPIUM 0.5 MG NEB (SCH) NEB ×4 (03:42→20:19)
[2017-06-18] MEDS: CHLORHEXIDINE GLUCONATE 2 % 1 PACK (2 CLOTHS) TOP SCH (03:50)
[2017-06-18] MEDS: HEPARIN SODIUM - SQ 10,000 UNITS/ML VIAL SQ SCH ×3 (03:50→20:00)
[2017-06-18 05:11] LABS: AUTOMATED NEUTROPHIL # 9.6 TH/MM3 (1.8-7.7); BASOPHIL # 0.1 TH/MM3 (0-0.2); BASOPHIL % 0.6 % (0.0-2.0); EOSINOPHIL # 0.3 TH/MM3 (0-0.4); EOSINOPHIL % 1.9 % (0.0-4.0); HEMATOCRIT 32.2 % (39.0-51.0); LYMPH % 21.7 % (9.0-44.0); LYMPHOCYTE # 3.2 TH/MM3 (1.0-4.8); MEAN CELL VOLUME 94.1 FL (80.0-100.0); MEAN PLATELET VOLUME 7.5 FL (7.0-11.0); MONO % 10.6 % (0.0-8.0); MONOCYTE # 1.6 TH/MM3 (0-0.9); NEUT % 65.2 % (16.0-70.0); PLATELET COUNT 209 TH/MM3 (150-450); RED BLOOD COUNT 3.42 MIL/MM3 (4.50-5.90); RED CELL DISTRIBUTION WIDTH 13.2 % (11.6-17.2); WHITE BLOOD COUNT 14.8 TH/MM3 (4.0-11.0)
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
[2017-06-18 05:43] LABS: ALBUMIN 1.5 GM/DL (3.4-5.0); AST (GOT) 66 U/L (15-37); BICARBONATE 27.1 MEQ/L (21.0-32.0); BLOOD UREA NITROGEN 38 MG/DL (7-18); CALCIUM 8.4 MG/DL (8.5-10.1); CHLORIDE 104 MEQ/L (98-107); CREATININE 1.66 MG/DL (0.60-1.30); GLOMERULAR FILTRATION RATE 42 ML/MIN (>89); GLUCOSE,RANDOM 103 MG/DL (74-106); MAGNESIUM 2.1 MG/DL (1.5-2.5); SODIUM (NA) 139 MEQ/L (136-145)
[2017-06-18 05:44] LABS: ALT (GPT) 24 U/L (12-78); PHOSPHORUS 3.5 MG/DL (2.5-4.9)
[2017-06-18 05:46] LABS: ALKALINE PHOSPHATASE 119 U/L (45-117); TOTAL BILIRUBIN ADULT 0.6 MG/DL (0.2-1.0); TOTAL PROTEIN 6.4 GM/DL (6.4-8.2)
[2017-06-18] MEDS: INSULIN ASPART SUPPLEMENTAL SCALE SQ SCH ×4 (06:00→18:00)
[2017-06-18] MEDS: FREE WATER G-TUBE SCH ×2 (06:00)
[2017-06-18] MEDS: LACTATED RINGER'S 1000 ML INJ 1,000 ML IV SCH (06:05)
[2017-06-18 06:54] LABS: BANDS 5 % (0-6); LYMPHOCYTES 21 % (9-44); METAMYELOCYTES 9 % (0-1); MONOCYTES 3 % (0-8); MYELOCYTES 2 % (0-0); POLYS (SEG NEUTROPHILS) 58 % (16-70)
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
[2017-06-18] MEDS: BENEPROTEIN POWDER 1 PACK G-TUBE SCH ×3 (08:42→18:00)
[2017-06-18] MEDS: THIAMINE INJ 100 MG in SODIUM CHLORIDE 0.9% INJ 100 ML IV SCH (08:48)
[2017-06-18] MEDS: FAMOTIDINE 20 MG/2 ML VIAL IV PUSH SCH ×2 (08:48→21:53)
[2017-06-18] MEDS: CHLORHEXIDINE 0.12% (ORAL KIT) 15 ML CUP MT SCH ×2 (08:48→21:53)
[2017-06-18] MEDS: MAGNESIUM HYDROXIDE SUSP 30 ML CUP PO SCH ×2 (09:00→21:00)
[2017-06-18] MEDS: DOCUSATE SODIUM 50 MG/SENNA 8.6 MG TAB PO SCH ×2 (09:00→21:00)
[2017-06-18] MEDS: BACITRACIN TOP OINT 15 GM TUBE TOPICAL SCH ×2 (09:00→21:53)
[2017-06-18] MEDS: LACTULOSE SYRUP 20 GM/30 ML CUP PO SCH (09:00)
[2017-06-18] MEDS ORDERED: VECURONIUM BROMIDE 10 MG VIAL IV PUSH SCH (09:15)
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
[2017-06-18] MEDS ORDERED: MIDAZOLAM HCL 5 MG/ML VIAL (1 ML) IV ONE (11:45)
[2017-06-18] MEDS ORDERED: VECURONIUM BROMIDE 10 MG VIAL IV PUSH ONE (11:45)
[2017-06-18] MEDS ORDERED: fentaNYL CITRATE 250 MCG/5 ML AMP IV PUSH ONE (11:45)
[2017-06-18] MEDS ORDERED: ETOMIDATE 40 MG/20 ML VIAL ONE (11:55)
--- NOTE | 2017-06-18 12:19 | PD.PROCEDR ---
Procedure Note Procedure DX: Respiratory Failure, Guidance for percutaneous tracheostomy Procedure: Bronchoscopy Procedure: Usual ICU monitoring devices in place. Patient on mechanical ventilation, rate 20/min, 100% FiO2, orotracheally intubated. Through a side port in the vent circuit the scope was introduced and the tracheobronchial tree was inspected. Segmental branching was normal. The scope and orotracheal tube were then withdrawn together to the level of the cricoid cartilage. This provided full screen visualization for the percutaneous tracheostomy insertion dictated separately. Following trach insertion the new trach tube was immediately entered to confirm the tube's location in the mid-trachea, suitably above the maria isabel. Conversion to direct tracheal ventilation was then accomplished and full tidal volumes returned. Sats were maintained > 100% throughout the procedure. Moderate thick yellow secretions aspirated from RLL bronchi and BAL collected. Chelsea Crisostomo MD Jun 18, 2017 12:19
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
[2017-06-18] MEDS ORDERED: PHARMACY ORDERED LAB ONE (20:45)
[2017-06-19] VITALS (18 sets, daily range): BP systolic 94–122; BP diastolic 53–65; PULSE 68–92; RESP 12–22; TEMP 98.1–100.4; O2SAT 94–100
[2017-06-19] MEDS: SODIUM CHLOR 0.9% 1000 ML INJ 1,000 ML IV SCH ×2 (01:00→10:43)
[2017-06-19] MEDS: HEPARIN SODIUM - SQ 10,000 UNITS/ML VIAL SQ SCH ×3 (01:08→20:34)
[2017-06-19] MEDS: CHLORHEXIDINE GLUCONATE 2 % 1 PACK (2 CLOTHS) TOP SCH (01:08)
[2017-06-19] MEDS: LACTATED RINGER'S 1000 ML INJ 1,000 ML IV SCH (02:04)
[2017-06-19] MEDS: RESP: ALBUTEROL 2.5 MG/IPRATROPIUM 0.5 MG NEB (SCH) NEB ×4 (04:04→20:24)
[2017-06-19 05:23] LABS: AUTOMATED NEUTROPHIL # 9.8 TH/MM3 (1.8-7.7); BASOPHIL # 0.1 TH/MM3 (0-0.2); BASOPHIL % 0.5 % (0.0-2.0); EOSINOPHIL # 0.3 TH/MM3 (0-0.4); EOSINOPHIL % 1.9 % (0.0-4.0); HEMATOCRIT 31.4 % (39.0-51.0); HEMOGLOBIN 10.6 GM/DL (13.0-17.0); LYMPH % 25.5 % (9.0-44.0); LYMPHOCYTE # 4.1 TH/MM3 (1.0-4.8); MEAN CELL VOLUME 95.4 FL (80.0-100.0); MEAN CORPUSCULAR HEMOGLOBIN 32.1 PG (27.0-34.0); MEAN CORPUSCULAR HGB CONC 33.7 % (32.0-36.0); MEAN PLATELET VOLUME 7.7 FL (7.0-11.0); MONO % 11.1 % (0.0-8.0); MONOCYTE # 1.8 TH/MM3 (0-0.9); PLATELET COUNT 250 TH/MM3 (150-450); RED BLOOD COUNT 3.29 MIL/MM3 (4.50-5.90); RED CELL DISTRIBUTION WIDTH 13.5 % (11.6-17.2)
[2017-06-19 05:37] LABS: BICARBONATE 21.4 MEQ/L (21.0-32.0); CALCIUM 8.4 MG/DL (8.5-10.1); CREATININE 2.09 MG/DL (0.60-1.30)
[2017-06-19 06:00] LABS: BANDS 7 % (0-6); BASOPHILS 1 % (0-2); LYMPHOCYTES 18 % (9-44); METAMYELOCYTES 8 % (0-1); MONOCYTES 4 % (0-8); MYELOCYTES 3 % (0-0); NEUTROPHIL # MANUAL DIFF 11.8 TH/MM3 (1.8-7.7); POLYS (SEG NEUTROPHILS) 55 % (16-70); PROMYELOCYTES 1 % (0-0)
[2017-06-19] MEDS: INSULIN ASPART SUPPLEMENTAL SCALE SQ SCH ×4 (06:00→17:57)
[2017-06-19] MEDS: BACITRACIN TOP OINT 15 GM TUBE TOPICAL SCH ×2 (09:00→20:35)
[2017-06-19] MEDS: BENEPROTEIN POWDER 1 PACK G-TUBE SCH ×3 (09:00→17:57)
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
[2017-06-19] MEDS ORDERED: SODIUM CHLOR 0.9% 1000 ML INJ 1,000 ML IV SCH ×2 (10:15)
[2017-06-19] MEDS: THIAMINE INJ 100 MG in SODIUM CHLORIDE 0.9% INJ 100 ML IV SCH (11:11)
[2017-06-19] MEDS: LACTULOSE SYRUP 20 GM/30 ML CUP PO SCH (11:11)
[2017-06-19] MEDS: CHLORHEXIDINE 0.12% (ORAL KIT) 15 ML CUP MT SCH ×2 (11:11→19:49)
[2017-06-19] MEDS: MAGNESIUM HYDROXIDE SUSP 30 ML CUP PO SCH ×2 (11:11→20:34)
[2017-06-19] MEDS: FAMOTIDINE 20 MG/2 ML VIAL IV PUSH SCH ×2 (11:11→20:34)
[2017-06-19] MEDS: DOCUSATE SODIUM 50 MG/SENNA 8.6 MG TAB PO SCH ×2 (11:12→20:34)
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
--- NOTE | 2017-06-19 12:24 | RADRPT ---
EXAM DATE/TIME: 06/19/2017 10:06 [facility] COMPARISON: CHEST SINGLE AP, June 18, 2017, 4:10. INDICATIONS : Evaluate for respiratory disease. MEDICAL HISTORY : None. SURGICAL HISTORY : Lap band, adrenal gland, knee replacement. ENCOUNTER: Subsequent ACUITY: 2 weeks PAIN SCORE: Non-responsive. LOCATION: chest FINDINGS: Tracheostomy tube is noted with its tip 3 cm above maria isabel. The heart remains mildly enlarged. Bilater al pulmonary infiltrates consistent with probable pulmonary vascular congestion are stable. CONCLUSION: 1. Stable bilateral pulmonary infiltrates consistent with probable pulmonary vascular congestion. 2. Mild cardiomegaly. Pan Holguin MD on June 19, 2017 at 12:20 Board Certified Radiologist. This report was verified electronically.
--- NOTE | 2017-06-19 15:46 | MB ---
cc: ESAU LATIF MD DATE OF CONSULTATION: 06/19/2017. REASON FOR CONSULTATION: Elevated BUN and creatinine for evaluation. HISTORY OF PRESENT ILLNESS: This is a 61-year-old male with past medical history of diabetes mellitus, history of Lap-band, lymphedema of the lower leg, morbid obesity and neuropathy who was admitted on June 06 with intracranial hemorrhage. I was called to see the patient because of elevated BUN and creatinine. The patient has a creatinine of 1.6 on admission which improved and it was 1.2 and then it started going up again and then improved to 1.4 and now since yesterday it started going up and now it is 2.0. The patient has had a prolonged hospital course with respiratory failure and he had a tracheostomy done and currently he is on the vent and he is not responding and most of the history was taken from the patient's chart, according to which the patient has history of trauma on admission and he has had an intracranial hemorrhage and several respirations when he was admitted. During the hospital course, he was given antibiotics. Currently he is on cephazolin but he did receive before Vancomycin but this was stopped on June 16. PAST MEDICAL HISTORY: 1. History of lymphedema. 2. Neuropathy. 3. Diabetes mellitus. 4. Morbid obesity. 5. Lap-band. PAST SURGICAL HISTORY: 1. History of Lap-band laparoscopically. 2. Left adrenalectomy. 3. Bilateral knee replacement. REVIEW OF SYSTEMS: A review of systems cannot be taken since the patient is not responding and on the vent. SOCIAL HISTORY: He has a history of smoking cigars and occasionally he drinks alcoholic beverages. FAMILY HISTORY: Family history is noncontributory. ALLERGIES: HE HAS NO KNOWN DRUG ALLERGIES. MEDICATIONS: Currently he is on the following medications: 1. Normal saline at an hour started this morning. 2. Erma-Colace one tablet three times a day. 3. Milk of magnesia 30 mL twice a day. 4. Cephazolin 1 gram one dose supposed to be given communications clerk. 5. Lactulose 30 mL daily. 6. DuoNeb nebulizer. 7. Famotidine 20 milligrams IV q 12 hours. 8. Insulin aspart sliding scale. 9. Heparin 5000 units subcutaneous q. 8 hours. PHYSICAL EXAMINATION: GENERAL: On the vent. Has tracheostomy and has been unresponsive. VITAL SIGNS: His last blood pressure was 105/57, temperature is 98.1, oxygen saturation is 95% on 40% FIO2. His blood pressure has been on the lower side and has some readings with a systolic. HEAD, EYES, EARS, NOSE, THROAT: The pupils are mid-constricted. Nonicteric sclerae. Conjunctivae are pale. NECK: The neck is supple. JVD is not elevated. LUNGS: The patient has with some scattered wheezing and basal rales. HEART: S1 and S2 regular rhythm. ABDOMEN: Abdomen obese, soft and lax, distended, nontender. EXTREMITIES: He has bilateral lymphedema. Both lower extremities are covered with a dressing and there is some scaly dryness of the skin although no discharge is seen. INVESTIGATIONS: White blood cell count is 16.0, hemoglobin 10.6, platelet count of 215,000, neutrophils 61%. Sodium 138, potassium 5.2, chloride 109, bicarbonate 20.4, BUN 42, creatinine 2.0, calcium is 8.4, phosphorus is 3.5. AST 66, ALT is 24, magnesium 2.1. Alkaline phosphatase is 119. Total protein is 6.4 with albumin of 1.5. IMAGING STUDIES: The patient had a chest x-ray done which shows bilateral pulmonary infiltrates. CT scan of the head was done on admission and it shows acute subdural and subarachnoid blood with midline shift. He had a CT angiogram done on June 14 which shows no evidence of pulmonary embolism. ASSESSMENT AND PLAN: 1. Acute kidney injury with possibility of some chronic kidney disease. 2. Intracranial hemorrhage. 3. Respiratory failure. 4. Atrial fibrillation. 5. Hyperglycemia. 6. Hypoalbuminemia. 7. Anemia. The patient has acute kidney injury. There is a possibility of chronic kidney disease now the creatinine increased to 2.0 diagnosis of acute kidney injury most likely acute tubular necrosis. There is a possibility of interstitial nephritis as his urine sodium osmolality and urine for eosinophil. I agree with giving the normal saline. There is a possibility of prerenal also avoid any nephrotoxins kidneys and follow the urine output and the BUN and the creatinine. Thank you for the consultation and I will follow the patient while he is in the hospital. MD JEANETTE Ernst/MAGDA /1:48 PM /3:22 PM
--- NOTE | 2017-06-19 20:15 | RADRPT ---
EXAM DATE/TIME: 06/19/2017 18:44 [facility] COMPARISON: No previous studies available for comparison. INDICATIONS : Increased BUN/Creatinine. MEDICAL HISTORY : Headache. Neuropathy. SURGICAL HISTORY : Lap band. Adrenal gland removed. ENCOUNTER: Initial ACUITY: 1 day PAIN SCORE: Nonresponsive. LOCATION: Bilateral flank MEASUREMENTS: RIGHT KIDNEY: 10.9 x 5.2 x 5.8 cm LEFT KIDNEY: 11.3 x 6.0 x 5.8 cm FINDINGS: RIGHT KIDNEY: Renal cortex is normal in thickness and echotexture. No hydronephrosis, stone, or mass. LEFT KIDNEY: Renal cortex is normal in thickness and echotexture. No hydronephrosis, stone, or mass. BLADDER: Within normal limits given the degree of distension. CONCLUSION: 1. No acute findings. No hydronephrosis or perinephric fluid. No free fluid is seen. Rodri Gutierres MD on June 19, 2017 at 20:11 Board Certified Radiologist. This report was verified electronically.
[2017-06-19 23:43] LABS: SODIUM,RANDOM URINE 97 MEQ/L
[2017-06-19 23:47] LABS: BACTERIA, URINE RARE /hpf; BILIRUBIN, URINE NEG (NEG); BLOOD, URINE LARGE (NEG); GLUCOSE,URINE NEG (NEG); KETONE, URINE NEG (NEG); MUCUS URINE FEW /lpf (OCC); NITRITE,URINE NEG (NEG); SQUAMOUS EPITHELIAL CELL URINE <1 /hpf (0-5); URINE COLOR YELLOW (YELLW/STRAW); URINE LEUKOCYTE ESTERASE SMALL (NEG)
[2017-06-20] VITALS (18 sets, daily range): BP systolic 105–121; BP diastolic 55–67; PULSE 68–77; RESP 18–26; TEMP 98–98.6; O2SAT 94–100
[2017-06-20 00:15] LABS: OSMOLALITY,URINE 541 MOSM/KG (300-1300)
[2017-06-20] MEDS: RESP: ALBUTEROL 2.5 MG/IPRATROPIUM 0.5 MG NEB (SCH) NEB ×4 (03:51→22:10)
[2017-06-20] MEDS: CHLORHEXIDINE GLUCONATE 2 % 1 PACK (2 CLOTHS) TOP SCH (04:00)
[2017-06-20] MEDS: HEPARIN SODIUM - SQ 10,000 UNITS/ML VIAL SQ SCH ×4 (04:59→20:12)
[2017-06-20] MEDS: INSULIN ASPART SUPPLEMENTAL SCALE SQ SCH ×4 (05:32→18:00)
[2017-06-20 06:30] LABS: BICARBONATE 17.2 MEQ/L (21.0-32.0); CALCIUM 8.2 MG/DL (8.5-10.1); CREATININE 1.62 MG/DL (0.60-1.30)
[2017-06-20] MEDS: AMANTADINE HCL SOLN 100 MG/10 ML UDC PO SCH (06:33)
[2017-06-20] MEDS: MAGNESIUM HYDROXIDE SUSP 30 ML CUP PO SCH ×2 (09:00→20:07)
[2017-06-20] MEDS: DOCUSATE SODIUM 50 MG/SENNA 8.6 MG TAB PO SCH ×2 (09:00→20:07)
[2017-06-20] MEDS: BENEPROTEIN POWDER 1 PACK G-TUBE SCH ×3 (09:00→18:27)
[2017-06-20] MEDS: BACITRACIN TOP OINT 15 GM TUBE TOPICAL SCH ×2 (09:00→20:07)
[2017-06-20] MEDS: LACTULOSE SYRUP 20 GM/30 ML CUP PO SCH (09:00)
[2017-06-20] MEDS ORDERED: LEVOFLOXACIN 500 MG PREMIX INJ 100 ML IV SCH (10:00)
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
--- NOTE | 2017-06-20 10:34 | HHI.NSPN ---
Head injury History Interval History No change.Patient unable to give info System Review Comments no change Exam Results Vital Signs Date Time Temp Pulse Resp B/P (MAP) Pulse Ox O2 Delivery O2 Flow Rate FiO2 06/20/17 07:49 100 40 06/20/17 06:00 74 06/20/17 04:00 98.1 18 105/56 (72) 06/19/17 19:00 Mechanical Ventilator Intake and Output 06/20/17 06/20/17 06/21/17 08:00 16:00 00:00 Intake Total 737 ml Output Total 1425 ml Balance -688 ml Physical Examination Remains obtunded. Does not follow commands On respirator Minimal response Medical Decision Making Impression and Plan Imp: Stable, no significant change P: Continue support CT in am Total Minutes: 15 Wong Francisco MD Jun 20, 2017 10:34
[2017-06-20] MEDS: THIAMINE INJ 100 MG in SODIUM CHLORIDE 0.9% INJ 100 ML IV SCH (10:46)
[2017-06-20] MEDS: FAMOTIDINE 20 MG/2 ML VIAL IV PUSH SCH ×2 (10:58→20:07)
[2017-06-20] MEDS: CHLORHEXIDINE 0.12% (ORAL KIT) 15 ML CUP MT SCH ×2 (10:58→19:58)
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
[2017-06-20 12:18] LABS: AUTOMATED NEUTROPHIL # 9.5 TH/MM3 (1.8-7.7); BASOPHIL # 0.1 TH/MM3 (0-0.2); BASOPHIL % 0.8 % (0.0-2.0); EOSINOPHIL # 0.4 TH/MM3 (0-0.4); EOSINOPHIL % 2.7 % (0.0-4.0); HEMATOCRIT 27.3 % (39.0-51.0); HEMOGLOBIN 9.1 GM/DL (13.0-17.0); LYMPH % 16.4 % (9.0-44.0); LYMPHOCYTE # 2.2 TH/MM3 (1.0-4.8); MEAN CELL VOLUME 94.1 FL (80.0-100.0); MEAN CORPUSCULAR HEMOGLOBIN 31.3 PG (27.0-34.0); MEAN CORPUSCULAR HGB CONC 33.3 % (32.0-36.0); MEAN PLATELET VOLUME 8.4 FL (7.0-11.0); MONOCYTE # 1.1 TH/MM3 (0-0.9); NEUT % 72.1 % (16.0-70.0); PLATELET COUNT 271 TH/MM3 (150-450); RED CELL DISTRIBUTION WIDTH 13.4 % (11.6-17.2); WHITE BLOOD COUNT 13.2 TH/MM3 (4.0-11.0)
[2017-06-20] MEDS: CEFEPIME INJ 2,000 MG in SODIUM CHLORIDE 0.9% INJ 100 ML IV SCH ×2 (12:41→20:06)
[2017-06-20] MEDS: SODIUM CHLOR 0.9% 1000 ML INJ 1,000 ML IV SCH (12:44)
[2017-06-20 13:04] LABS: BANDS 14 % (0-6); BASOPHILS 1 % (0-2); LYMPHOCYTES 6 % (9-44); METAMYELOCYTES 4 % (0-1); MONOCYTES 7 % (0-8); MYELOCYTES 5 % (0-0); NEUTROPHIL # MANUAL DIFF 11.1 TH/MM3 (1.8-7.7); POLYS (SEG NEUTROPHILS) 61 % (16-70)
[2017-06-20 13:05] LABS: TOXIC GRANULATION 1+ (NORMAL)
--- NOTE | 2017-06-20 14:40 | HHI.NPPN ---
Subjective General Problems: Anemia, Edema Renal Failure: Chronic, Acute, Stage III History of Present Illness 61-year-old male with past medical history of diabetes mellitus, history of Lap-band, lymphedema of the lower leg, morbid obesity and neuropathy who was admitted on June 06 with intracranial hemorrhage. I was called to see the patient because of elevated BUN and creatinine. The patient has a creatinine of 1.6 on admission which improved and it was 1.2 and then it started going up again and then improved to 1.4 and now since yesterday it started going up and now it is 2.0. Additional Remarks Patient was seen 2 hrs. ago, was on T-piece, has mild tachypnea, remain lethargic. Review of Systems General General Remarks Cannot take. Objective Data Data Vital Signs Date Time Temp Pulse Resp B/P (MAP) Pulse Ox O2 Delivery O2 Flow Rate FiO2 06/20/17 14:08 97 40 06/20/17 12:00 94 T-piece 40 06/20/17 12:00 77 06/20/17 12:00 98.4 68 21 108/56 (73) 97 06/20/17 12:00 30 06/20/17 10:00 74 06/20/17 10:00 40 06/20/17 08:00 68 06/20/17 08:00 98.4 68 21 108/56 (73) 97 06/20/17 08:00 40 06/20/17 07:49 100 40 06/20/17 07:49 40 06/20/17 07:00 100 Mechanical Ventilator 40 06/20/17 06:00 74 06/20/17 04:00 98.1 68 18 105/56 (72) 99 06/20/17 04:00 40 06/20/17 04:00 68 06/20/17 03:51 100 40 06/20/17 02:00 70 06/20/17 00:34 100 40 06/20/17 00:00 98.0 68 18 121/66 (84) 100 06/20/17 00:00 40 06/20/17 00:00 68 06/19/17 22:00 72 06/19/17 20:25 100 50 06/19/17 20:00 98.5 68 18 117/65 (82) 99 06/19/17 20:00 40 06/19/17 20:00 69 06/19/17 19:00 100 Mechanical Ventilator 40 06/19/17 18:00 70 06/19/17 16:03 98 40 06/19/17 16:00 70 06/19/17 16:00 98.4 70 14 122/64 (83) 97 06/19/17 16:00 40 -: 06/20/17 1045 06/20/17 1245 Microbiology 06/19/17 Urine Culture - Preliminary, Resulted No growth. Physical Exam General Appearance Remarks Patient with Trach. and T-Piece, in mild resp. distress, unresponsive. Eyes Eye Exam: Pupils Equal Throat Throat Exam: Oral Mucosa [place] & Moist Neck Neck Exam: Neck Supple Pulmonary Resp Exam: Crackles, Rhonchi, Sputum, Decreased Bases, Diminished Breath Sounds Cardiology CV Exam: Regular, Normal Sinus Rhythm Gastrointestinal/Abdomen GI Exam: Soft, Non-Tender, Distended Extremeties Extremities Exam: Trace Edema Neurologic Neuro Exam: Obtunded, Unresponsive Assessment/Plan Assessment Summary: NANDO/Acute Renal Failure, CKD Stage III Problem List: (1) SDH (subdural hematoma) ICD Codes: I62.00 - Nontraumatic subdural hemorrhage, unspecified Status: Acute (2) ICH (intracerebral hemorrhage) ICD Codes: I61.9 - Nontraumatic intracerebral hemorrhage, unspecified Status: Acute (3) Scalp laceration ICD Codes: S01.01XA - Laceration without foreign body of scalp, initial encounter Status: Acute (4) Mild major neurocognitive disorder due to traumatic brain injury with behavioral disturbance ICD Codes: S06.9X9S - Unspecified intracranial injury with loss of consciousness of unspecified duration, sequela; F02.81 - Dementia in other diseases classified elsewhere with behavioral disturbance (5) Acute kidney injury ICD Codes: N17.9 - Acute kidney failure, unspecified Plan Patient has been non oliguric. Creatinine is improving. K is normal. On IVF, decreased to 75 ml/min., Weaning as per CCM. Also on GT feeding at 60 ml/hr. Follow the urine out put and BMP. Avoid Nephrotoxins. Negrita Jean MD Jun 20, 2017 14:39
[2017-06-21] VITALS (17 sets, daily range): BP systolic 101–136; BP diastolic 57–65; PULSE 66–76; RESP 21–25; TEMP 98.7–99.2; O2SAT 98–100
[2017-06-21] MEDS: HEPARIN SODIUM - SQ 10,000 UNITS/ML VIAL SQ SCH (04:00)
[2017-06-21] MEDS: CHLORHEXIDINE GLUCONATE 2 % 1 PACK (2 CLOTHS) TOP SCH (04:00)
[2017-06-21] MEDS: RESP: ALBUTEROL 2.5 MG/IPRATROPIUM 0.5 MG NEB (SCH) NEB ×4 (04:26→20:45)
[2017-06-21] MEDS: CEFEPIME INJ 2,000 MG in SODIUM CHLORIDE 0.9% INJ 100 ML IV SCH (04:59)
[2017-06-21] MEDS: INSULIN ASPART SUPPLEMENTAL SCALE SQ SCH ×5 (05:00→20:00)
[2017-06-21 05:08] LABS: AUTOMATED NEUTROPHIL # 9.4 TH/MM3 (1.8-7.7); BASOPHIL # 0.1 TH/MM3 (0-0.2); BASOPHIL % 0.5 % (0.0-2.0); EOSINOPHIL # 0.3 TH/MM3 (0-0.4); EOSINOPHIL % 2.2 % (0.0-4.0); HEMATOCRIT 28.2 % (39.0-51.0); HEMOGLOBIN 9.7 GM/DL (13.0-17.0); LYMPHOCYTE # 2.3 TH/MM3 (1.0-4.8); MEAN CELL VOLUME 94.2 FL (80.0-100.0); MEAN CORPUSCULAR HEMOGLOBIN 32.4 PG (27.0-34.0); MEAN CORPUSCULAR HGB CONC 34.4 % (32.0-36.0); MEAN PLATELET VOLUME 7.8 FL (7.0-11.0); MONO % 7.2 % (0.0-8.0); MONOCYTE # 0.9 TH/MM3 (0-0.9); NEUT % 72.1 % (16.0-70.0); PLATELET COUNT 258 TH/MM3 (150-450); RED BLOOD COUNT 2.99 MIL/MM3 (4.50-5.90); RED CELL DISTRIBUTION WIDTH 13.5 % (11.6-17.2)
[2017-06-21 05:46] LABS: BICARBONATE 20.5 MEQ/L (21.0-32.0); CALCIUM 8.3 MG/DL (8.5-10.1); CREATININE 1.55 MG/DL (0.60-1.30)
[2017-06-21] MEDS: SODIUM CHLOR 0.9% 1000 ML INJ 1,000 ML IV SCH ×2 (06:59→21:51)
[2017-06-21 07:16] LABS: BANDS 19 % (0-6); BASOPHILS 1 % (0-2); LYMPHOCYTES 8 % (9-44); METAMYELOCYTES 3 % (0-1); MONOCYTES 3 % (0-8); MYELOCYTES 1 % (0-0); NEUTROPHIL # MANUAL DIFF 11.4 TH/MM3 (1.8-7.7); POLYS (SEG NEUTROPHILS) 65 % (16-70)
[2017-06-21 07:18] LABS: TOXIC GRANULATION 1+ (NORMAL)
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
[2017-06-21] MEDS: CHLORHEXIDINE 0.12% (ORAL KIT) 15 ML CUP MT SCH ×2 (08:00→20:21)
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
[2017-06-21] MEDS: FAMOTIDINE 20 MG/2 ML VIAL IV PUSH SCH ×2 (08:19→20:28)
[2017-06-21] MEDS: AMANTADINE HCL SOLN 100 MG/10 ML UDC PO SCH ×2 (08:19→13:01)
[2017-06-21] MEDS: BENEPROTEIN POWDER 1 PACK G-TUBE SCH ×3 (08:20→13:00)
[2017-06-21] MEDS: LACTULOSE SYRUP 20 GM/30 ML CUP PO SCH (08:22)
[2017-06-21] MEDS: MAGNESIUM HYDROXIDE SUSP 30 ML CUP PO SCH ×2 (08:22→20:28)
[2017-06-21] MEDS: DOCUSATE SODIUM 50 MG/SENNA 8.6 MG TAB PO SCH ×2 (08:23→20:29)
[2017-06-21] MEDS: THIAMINE INJ 100 MG in SODIUM CHLORIDE 0.9% INJ 100 ML IV SCH (09:17)
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
[2017-06-21] MEDS: LEVOFLOXACIN 750 MG PREMIX INJ 150 ML IV SCH (13:00)
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
--- NOTE | 2017-06-21 16:32 | HHI.NPPN ---
Subjective General Problems: Anemia, Edema Renal Failure: Chronic, Acute, Stage III History of Present Illness 61-year-old male with past medical history of diabetes mellitus, history of Lap-band, lymphedema of the lower leg, morbid obesity and neuropathy who was admitted on June 06 with intracranial hemorrhage. I was called to see the patient because of elevated BUN and creatinine. The patient has a creatinine of 1.6 on admission which improved and it was 1.2 and then it started going up again and then improved to 1.4 and now since yesterday it started going up and now it is 2.0. Additional Remarks Patient remain lethargic, on the vent. Review of Systems General General Remarks Cannot take. Objective Data Data 06/21/17 06/22/17 19:00 07:00 Intake Total 50 ml Balance 50 ml Other 50 ml Vital Signs Date Time Temp Pulse Resp B/P (MAP) Pulse Ox O2 Delivery O2 Flow Rate FiO2 06/21/17 16:00 69 06/21/17 16:00 40 06/21/17 15:53 100 40 06/21/17 14:00 67 06/21/17 12:00 74 06/21/17 12:00 40 06/21/17 10:00 68 06/21/17 08:20 40 06/21/17 08:17 100 40 06/21/17 08:17 40 06/21/17 08:00 73 06/21/17 08:00 98.9 73 24 124/65 (84) 100 06/21/17 08:00 40 06/21/17 07:00 100 Mechanical Ventilator 40 06/21/17 06:00 70 06/21/17 04:27 98 40 06/21/17 04:00 98.7 68 25 111/61 (78) 99 06/21/17 04:00 68 06/21/17 04:00 40 06/21/17 02:00 70 06/21/17 01:13 99 40 06/21/17 00:00 98.9 76 21 109/59 (76) 98 06/21/17 00:00 40 06/21/17 00:00 76 06/20/17 22:10 98 40 06/20/17 22:00 40 06/20/17 22:00 70 06/20/17 20:00 74 06/20/17 20:00 40 06/20/17 20:00 98.6 74 25 108/55 (72) 100 06/20/17 19:00 100 Mechanical Ventilator 40 06/20/17 18:00 72 -: 06/21/17 0422 06/21/17 1210 Physical Exam General Appearance Remarks Patient with Trach. and T-Piece, in mild resp. distress, unresponsive. Eyes Eye Exam: Pupils Equal Throat Throat Exam: Oral Mucosa [facility] & Moist Neck Neck Exam: Neck Supple Pulmonary Resp Exam: Crackles, Rhonchi, Sputum, Decreased Bases, Diminished Breath Sounds Cardiology CV Exam: Regular, Normal Sinus Rhythm Gastrointestinal/Abdomen GI Exam: Soft, Non-Tender, Distended Extremeties Extremities Exam: Trace Edema Neurologic Neuro Exam: Obtunded, Unresponsive Assessment/Plan Assessment Summary: NANDO/Acute Renal Failure, CKD Stage III Problem List: (1) SDH (subdural hematoma) ICD Codes: I62.00 - Nontraumatic subdural hemorrhage, unspecified Status: Acute (2) ICH (intracerebral hemorrhage) ICD Codes: I61.9 - Nontraumatic intracerebral hemorrhage, unspecified Status: Acute (3) Scalp laceration ICD Codes: S01.01XA - Laceration without foreign body of scalp, initial encounter Status: Acute (4) Mild major neurocognitive disorder due to traumatic brain injury with behavioral disturbance ICD Codes: S06.9X9S - Unspecified intracranial injury with loss of consciousness of unspecified duration, sequela; F02.81 - Dementia in other diseases classified elsewhere with behavioral disturbance (5) Acute kidney injury ICD Codes: N17.9 - Acute kidney failure, unspecified Plan Patient has been non oliguric. Creatinine is improving, now 1.55. K is normal. On IVF, decreased to 75 ml/min., Weaning as per CCM. Also on GT feeding at 60 ml/hr. Follow the urine out put and BMP. Negrita Jean MD Jun 21, 2017 16:32
[2017-06-22] VITALS (19 sets, daily range): BP systolic 96–117; BP diastolic 54–66; PULSE 68–78; RESP 22–27; TEMP 98.2–99.4; O2SAT 99–100
[2017-06-22] MEDS: RESP: ALBUTEROL 2.5 MG/IPRATROPIUM 0.5 MG NEB (SCH) NEB ×4 (03:32→21:47)
[2017-06-22] MEDS: CHLORHEXIDINE GLUCONATE 2 % 1 PACK (2 CLOTHS) TOP SCH (04:00)
[2017-06-22 04:04] LABS: AUTOMATED NEUTROPHIL # 10.3 TH/MM3 (1.8-7.7); BASOPHIL % 0.3 % (0.0-2.0); EOSINOPHIL # 0.3 TH/MM3 (0-0.4); EOSINOPHIL % 2.4 % (0.0-4.0); HEMATOCRIT 29.9 % (39.0-51.0); HEMOGLOBIN 9.9 GM/DL (13.0-17.0); LYMPH % 12.2 % (9.0-44.0); LYMPHOCYTE # 1.6 TH/MM3 (1.0-4.8); MEAN CELL VOLUME 93.5 FL (80.0-100.0); MEAN CORPUSCULAR HGB CONC 33.2 % (32.0-36.0); MEAN PLATELET VOLUME 7.8 FL (7.0-11.0); MONO % 6.3 % (0.0-8.0); MONOCYTE # 0.8 TH/MM3 (0-0.9); NEUT % 78.8 % (16.0-70.0); PLATELET COUNT 276 TH/MM3 (150-450); RED BLOOD COUNT 3.19 MIL/MM3 (4.50-5.90); RED CELL DISTRIBUTION WIDTH 13.5 % (11.6-17.2)
[2017-06-22 04:31] LABS: BICARBONATE 23.7 MEQ/L (21.0-32.0); CALCIUM 8.6 MG/DL (8.5-10.1); CREATININE 1.52 MG/DL (0.60-1.30)
[2017-06-22] MEDS: SODIUM CHLOR 0.9% 1000 ML INJ 1,000 ML IV SCH ×2 (04:45→21:16)
[2017-06-22] MEDS: INSULIN ASPART SUPPLEMENTAL SCALE SQ SCH ×3 (06:00→18:00)
[2017-06-22 06:07] LABS: BANDS 6 % (0-6); CORRECTED NUCLEATED RBC 1 /100 WBC (0-0); LYMPHOCYTES 12 % (9-44); METAMYELOCYTES 4 % (0-1); MONOCYTES 5 % (0-8); MYELOCYTES 1 % (0-0); NEUTROPHIL # MANUAL DIFF 10.5 TH/MM3 (1.8-7.7); NUCLEATED RED BLOOD CELL 1 (0-0); POLYS (SEG NEUTROPHILS) 70 % (16-70)
[2017-06-22 06:09] LABS: POLYCHROMASIA 2.4 % (0.0-1.9)
--- NOTE | 2017-06-22 06:25 | RADRPT ---
EXAM DATE/TIME: 06/22/2017 05:30 [facility] COMPARISON: ABDOMEN SINGLE VIEW, June 11, 2017, 13:24. CHEST SINGLE AP, June 11, 2017, 16:22. CT PULMON PRISCILLA ANGIOGRAM, June 14, 2017, 12:53. CHEST SINGLE AP, June 18, 2017, 4:10. CHEST SINGLE AP, June 19, 2017, 10:06. INDICATIONS : Short of breath. MEDICAL HISTORY : None. SURGICAL HISTORY : Lap band. Adrenal gland removed. ENCOUNTER: Subsequent ACUITY: 2 weeks PAIN SCORE: Non-responsive. LOCATION: Bilateral chest FINDINGS: There is tracheostomy tube in place. NG tube in place. The heart size is within normal limits. Patien t presents at the bases bilaterally. The mid and upper lungs are relatively clear. There is increased density likely related to calcification in the left upper quadrant of the abdomen. CONCLUSION: Bibasilar areas of increased density at the bases representing some degree of atelectasis or consolid ation. Some degree of effusion should also be considered. Kranthi Arias MD on June 22, 2017 at 6:21 Board Certified Radiologist. This report was verified electronically.
[2017-06-22] MEDS: CHLORHEXIDINE 0.12% (ORAL KIT) 15 ML CUP MT SCH ×2 (08:00→20:00)
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
[2017-06-22] MEDS: AMANTADINE HCL SOLN 100 MG/10 ML UDC PO SCH ×2 (08:33→13:00)
[2017-06-22] MEDS: FAMOTIDINE 20 MG TAB NG SCH ×2 (08:34→20:02)
[2017-06-22] MEDS: DOCUSATE SODIUM 50 MG/SENNA 8.6 MG TAB PO SCH ×2 (08:34→20:02)
[2017-06-22] MEDS: BENEPROTEIN POWDER 1 PACK G-TUBE SCH ×4 (08:34→18:00)
[2017-06-22] MEDS: LACTULOSE SYRUP 20 GM/30 ML CUP PO SCH (08:35)
[2017-06-22] MEDS: MAGNESIUM HYDROXIDE SUSP 30 ML CUP PO SCH ×2 (08:36→21:00)
[2017-06-22] MEDS ORDERED: FAMOTIDINE 40 MG/5 ML LIQ 50 ML BTL NG SCH (09:00)
[2017-06-22] MEDS: THIAMINE INJ 100 MG in SODIUM CHLORIDE 0.9% INJ 100 ML IV SCH (09:48)
[2017-06-22] MEDS: HEPARIN SODIUM - SQ 10,000 UNITS/ML VIAL SQ SCH ×2 (12:17→20:03)
[2017-06-22] MEDS: LEVOFLOXACIN 750 MG PREMIX INJ 150 ML IV SCH (12:17)
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
--- NOTE | 2017-06-22 16:56 | HHI.NPPN ---
Subjective General Problems: Anemia, Edema Renal Failure: Chronic, Acute, Stage III History of Present Illness 61-year-old male with past medical history of diabetes mellitus, history of Lap-band, lymphedema of the lower leg, morbid obesity and neuropathy who was admitted on June 06 with intracranial hemorrhage. I was called to see the patient because of elevated BUN and creatinine. The patient has a creatinine of 1.6 on admission which improved and it was 1.2 and then it started going up again and then improved to 1.4 and now since yesterday it started going up and now it is 2.0. Additional Remarks Patient remain lethargic, on the vent., clinically same. Review of Systems General General Remarks Cannot take. Objective Data Data Vital Signs Date Time Temp Pulse Resp B/P (MAP) Pulse Ox O2 Delivery O2 Flow Rate FiO2 06/22/17 16:12 100 40 06/22/17 14:00 77 06/22/17 12:00 76 06/22/17 12:00 40 06/22/17 11:44 99 40 06/22/17 10:00 74 06/22/17 08:00 40 06/22/17 08:00 71 06/22/17 07:30 100 40 06/22/17 07:00 99 Mechanical Ventilator 40 06/22/17 06:00 68 06/22/17 04:05 99 40 06/22/17 04:00 74 06/22/17 04:00 98.3 74 27 112/55 (74) 99 06/22/17 04:00 40 06/22/17 02:00 76 06/22/17 00:52 100 40 06/22/17 00:00 74 06/22/17 00:00 99.2 74 26 117/65 (82) 99 06/22/17 00:00 40 06/21/17 22:00 76 06/21/17 20:45 98 40 06/21/17 20:00 99.2 70 25 101/61 (74) 99 06/21/17 20:00 40 06/21/17 20:00 70 06/21/17 20:00 99 Mechanical Ventilator 40 06/21/17 18:00 66 -: 06/22/17 0330 06/22/17 0330 Physical Exam General Appearance Remarks Patient with Trach. and T-Piece, in mild resp. distress, unresponsive. Eyes Eye Exam: Pupils Equal Throat Throat Exam: Oral Mucosa Ulmer & Moist Neck Neck Exam: Neck Supple Pulmonary Resp Exam: Crackles, Rhonchi, Sputum, Decreased Bases, Diminished Breath Sounds Cardiology CV Exam: Regular, Normal Sinus Rhythm Gastrointestinal/Abdomen GI Exam: Soft, Non-Tender, Distended Extremeties Extremities Exam: Trace Edema Neurologic Neuro Exam: Obtunded, Unresponsive Assessment/Plan Assessment Summary: NANDO/Acute Renal Failure, CKD Stage III Problem List: (1) SDH (subdural hematoma) ICD Codes: I62.00 - Nontraumatic subdural hemorrhage, unspecified Status: Acute (2) ICH (intracerebral hemorrhage) ICD Codes: I61.9 - Nontraumatic intracerebral hemorrhage, unspecified Status: Acute (3) Scalp laceration ICD Codes: S01.01XA - Laceration without foreign body of scalp, initial encounter Status: Acute (4) Mild major neurocognitive disorder due to traumatic brain injury with behavioral disturbance ICD Codes: S06.9X9S - Unspecified intracranial injury with loss of consciousness of unspecified duration, sequela; F02.81 - Dementia in other diseases classified elsewhere with behavioral disturbance (5) Acute kidney injury ICD Codes: N17.9 - Acute kidney failure, unspecified Plan Patient has been non oliguric. Creatinine is now stable at 1.5. K is normal. On IVF, decreased to 75 ml/min., Weaning as per CCM. Also on GT feeding at 60 ml/hr. Follow the urine out put and BMP. Avoid Nephrotoxins. Negrita Jean MD Jun 22, 2017 16:56
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
[2017-06-23] VITALS (21 sets, daily range): BP systolic 86–122; BP diastolic 45–61; PULSE 62–84; RESP 20–27; TEMP 98.2–99.2; O2SAT 97–100
[2017-06-23] MEDS: CHLORHEXIDINE GLUCONATE 2 % 1 PACK (2 CLOTHS) TOP SCH (04:00)
[2017-06-23] MEDS: RESP: ALBUTEROL 2.5 MG/IPRATROPIUM 0.5 MG NEB (SCH) NEB ×2 (04:38→08:21)
[2017-06-23] MEDS: HEPARIN SODIUM - SQ 10,000 UNITS/ML VIAL SQ SCH ×3 (05:46→21:55)
[2017-06-23] MEDS: INSULIN ASPART SUPPLEMENTAL SCALE SQ SCH ×3 (05:46→12:00)
[2017-06-23 05:49] LABS: AUTOMATED NEUTROPHIL # 10.6 TH/MM3 (1.8-7.7); BASOPHIL % 0.3 % (0.0-2.0); EOSINOPHIL # 0.3 TH/MM3 (0-0.4); EOSINOPHIL % 2.4 % (0.0-4.0); HEMATOCRIT 26.4 % (39.0-51.0); HEMOGLOBIN 8.7 GM/DL (13.0-17.0); LYMPH % 15.1 % (9.0-44.0); LYMPHOCYTE # 2.1 TH/MM3 (1.0-4.8); MEAN CELL VOLUME 94.2 FL (80.0-100.0); MEAN CORPUSCULAR HGB CONC 32.9 % (32.0-36.0); MEAN PLATELET VOLUME 8.1 FL (7.0-11.0); MONO % 4.4 % (0.0-8.0); MONOCYTE # 0.6 TH/MM3 (0-0.9); NEUT % 77.8 % (16.0-70.0); PLATELET COUNT 289 TH/MM3 (150-450); RED BLOOD COUNT 2.81 MIL/MM3 (4.50-5.90); RED CELL DISTRIBUTION WIDTH 13.6 % (11.6-17.2); WHITE BLOOD COUNT 13.6 TH/MM3 (4.0-11.0)
[2017-06-23 06:10] LABS: ALBUMIN 1.5 GM/DL (3.4-5.0); ALT (GPT) 30 U/L (12-78); AST (GOT) 100 U/L (15-37); BICARBONATE 22.7 MEQ/L (21.0-32.0); BLOOD UREA NITROGEN 39 MG/DL (7-18); CALCIUM 8.2 MG/DL (8.5-10.1); CHLORIDE 109 MEQ/L (98-107); CREATININE 1.26 MG/DL (0.60-1.30); GLOMERULAR FILTRATION RATE 58 ML/MIN (>89); GLUCOSE,RANDOM 92 MG/DL (74-106); SODIUM (NA) 140 MEQ/L (136-145)
[2017-06-23 06:11] LABS: ALKALINE PHOSPHATASE 91 U/L (45-117); TOTAL BILIRUBIN ADULT 0.4 MG/DL (0.2-1.0); TOTAL PROTEIN 6.3 GM/DL (6.4-8.2)
[2017-06-23] MEDS: AMANTADINE HCL SOLN 100 MG/10 ML UDC PO SCH ×2 (07:00→14:00)
[2017-06-23 07:43] LABS: BANDS 7 % (0-6); LYMPHOCYTES 12 % (9-44); METAMYELOCYTES 3 % (0-1); MONOCYTES 2 % (0-8); NEUTROPHIL # MANUAL DIFF 11.7 TH/MM3 (1.8-7.7); POLYS (SEG NEUTROPHILS) 76 % (16-70)
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
[2017-06-23] MEDS: FAMOTIDINE 20 MG TAB NG SCH ×2 (09:00→21:55)
[2017-06-23] MEDS: THIAMINE INJ 100 MG in SODIUM CHLORIDE 0.9% INJ 100 ML IV SCH (09:00)
[2017-06-23] MEDS: LACTULOSE SYRUP 20 GM/30 ML CUP PO SCH (09:00)
[2017-06-23] MEDS: BENEPROTEIN POWDER 1 PACK G-TUBE SCH ×3 (09:00→18:00)
[2017-06-23] MEDS: DOCUSATE SODIUM 50 MG/SENNA 8.6 MG TAB PO SCH ×2 (09:00→21:55)
[2017-06-23] MEDS: MAGNESIUM HYDROXIDE SUSP 30 ML CUP PO SCH ×2 (09:00→21:54)
[2017-06-23] MEDS: BACITRACIN TOP OINT 15 GM TUBE TOPICAL SCH ×3 (09:12→21:00)
[2017-06-23] MEDS: CHLORHEXIDINE 0.12% (ORAL KIT) 15 ML CUP MT SCH ×2 (09:12→21:54)
--- NOTE | 2017-06-23 09:42 | GIPROC ---
[facility] [address] [facility]. [facility] [place], [address] EGD PROCEDURE REPORT EXAM DATE: 06/21/2017 PATIENT NAME: Mario Mcdonnell MR#: [id number] BIRTHDATE: 1955 ATTENDING: Kristina Peter MD ORDER #: [id number] RULING MACHINE SET UP OPERATOR: Kaylah Hamlin and Irma Mcpherson STATUS: inpatient INDICATIONS: The patient is a 61 yr old male here for an EGD with PEG due to placement of PEG PROCEDURE PERFORMED: EGD, diagnostic MEDICATIONS: None and Per Anesthesia. TOPICAL ANESTHETIC: none CONSENT: The patient understands the risks and benefits of the procedure and understands that these risks include, but are not limited to: sedation, allergic reaction, infection, perforation and/or bleeding. Alternative means of evaluation and treatment include, among others: physical exam, x-rays, and/or surgical intervention. The patient elects to proceed with this endoscopic procedure. medical equipment was checked for proper function. Hand hygiene and appropriate measures for infection prevention was taken. After the risks, benefits and alternatives of the procedure were thoroughly explained, Informed consent was verified, confirmed and timeout was successfully executed by the treatment team. The patient was anesthetized with topical anesthesia and the Pentax [id number] endoscope was introduced through the mouth and advanced to the second portion of the duodenum. The instrument was slowly withdrawn as the mucosa was fully examined. A deformity was found in the body of the stomach. Compatible with previous surgery The esophagus and gastroesophageal junction were completely normal in appearance. The duodenal bulb was normal in appearance, as was the postbulbar duodenum. The stomach was then inflated with air, and by a combination of transillumination and manual palpation, the site for the gastrostomy tube placement could not identified secondary to scar. The skin of the anterior abdomen was surgically prepped and draped with sterile towels. UFr d] ns ADVERSE EVENT: There were no complications. IMPRESSIONS: 1. A deformity was found in the body of the stomach, unable to identify transillumination and proper site for PEG placement secondary to scars. 2. The esophagus and gastroesophageal junction were completely normal in appearance. 3. The duodenal bulb was normal in appearance, as was the postbulbar duodenum. RECOMMENDATIONS: IR for G tube placement REPEAT EXAM: procedure as needed Kristina Peter MD eSigned: Kristina Peter MD 06/23/2017 9:41 AM cc: PATIENT NAME: Mario Mcdonnell MR#: [id number]
[2017-06-23] MEDS ORDERED: LIDOCAINE 1%/EPINEPHrine 1:100,000 SOLN 50 ML VIAL ONE (10:40)
[2017-06-23] MEDS: LEVOFLOXACIN 750 MG PREMIX INJ 150 ML IV SCH (11:24)
[2017-06-23] MEDS ORDERED: PHENYLEPH/NS 1000 MCG/10 ML SYR IV ONE (12:00)
[2017-06-23] MEDS ORDERED: ONDANSETRON HCL 4 MG/2 ML VIAL IV PUSH ONE (12:00)
[2017-06-23] MEDS ORDERED: ROCURONIUM INJ 50 MG/5 ML SYRINGE IV PUSH ONE (12:00)
[2017-06-23] MEDS ORDERED: DEXAMETHASONE SOD PHOS 4 MG/ML VIAL IV ONE (12:00)
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
[2017-06-23] MEDS: SODIUM CHLOR 0.9% 1000 ML INJ 1,000 ML IV SCH ×2 (14:51→20:55)
--- NOTE | 2017-06-23 17:34 | HHI.NPPN ---
Subjective General Problems: Anemia, Edema Renal Failure: Chronic, Acute, Stage III History of Present Illness 61-year-old male with past medical history of diabetes mellitus, history of Lap-band, lymphedema of the lower leg, morbid obesity and neuropathy who was admitted on June 06 with intracranial hemorrhage. I was called to see the patient because of elevated BUN and creatinine. The patient has a creatinine of 1.6 on admission which improved and it was 1.2 and then it started going up again and then improved to 1.4 and now since yesterday it started going up and now it is 2.0. Additional Remarks Patient remain lethargic, on the vent., was given sedation for PEG. Review of Systems General General Remarks Cannot take. Objective Data Data 06/23/17 06/24/17 19:00 07:00 Intake Total 1000 ml Output Total 110 ml Balance 890 ml Other 1000 ml Output Urine Total 100 ml Estimated Blood Loss 10 ml Vital Signs Date Time Temp Pulse Resp B/P (MAP) Pulse Ox O2 Delivery O2 Flow Rate FiO2 06/23/17 16:01 98 30 06/23/17 14:00 67 06/23/17 12:15 80 06/23/17 12:15 100 06/23/17 12:00 98.2 80 20 86/45 (59) 100 06/23/17 10:00 100 100 06/23/17 08:21 100 30 06/23/17 08:00 98.8 63 23 115/58 (77) 100 06/23/17 08:00 40 06/23/17 08:00 67 06/23/17 07:00 100 Mechanical Ventilator 40 06/23/17 06:00 62 06/23/17 04:39 100 Ventilator 06/23/17 04:34 100 40 06/23/17 04:00 98.2 66 22 113/61 (78) 100 06/23/17 04:00 40 06/23/17 04:00 66 06/23/17 02:00 70 06/23/17 00:26 100 40 06/23/17 00:00 40 06/23/17 00:00 99.2 78 27 105/59 (74) 100 06/23/17 00:00 72 06/22/17 22:00 70 06/22/17 20:00 78 06/22/17 20:00 99.4 78 26 96/54 (68) 100 06/22/17 20:00 40 06/22/17 19:27 100 Ventilator 06/22/17 19:22 100 40 06/22/17 19:00 100 Mechanical Ventilator 40 06/22/17 18:00 75 -: 06/23/17 0318 06/23/178 Physical Exam General Appearance Remarks Patient with Trach. and T-Piece, in mild resp. distress, unresponsive. Eyes Eye Exam: Pupils Equal Throat Throat Exam: Oral Mucosa [place] & Moist Neck Neck Exam: Neck Supple Pulmonary Resp Exam: Crackles, Rhonchi, Sputum, Decreased Bases, Diminished Breath Sounds Cardiology CV Exam: Regular, Normal Sinus Rhythm Gastrointestinal/Abdomen GI Exam: Soft, Non-Tender, Distended Extremeties Extremities Exam: Trace Edema Neurologic Neuro Exam: Obtunded, Unresponsive Assessment/Plan Assessment Summary: NANDO/Acute Renal Failure, CKD Stage III Problem List: (1) SDH (subdural hematoma) ICD Codes: I62.00 - Nontraumatic subdural hemorrhage, unspecified Status: Acute (2) ICH (intracerebral hemorrhage) ICD Codes: I61.9 - Nontraumatic intracerebral hemorrhage, unspecified Status: Acute (3) Scalp laceration ICD Codes: S01.01XA - Laceration without foreign body of scalp, initial encounter Status: Acute (4) Mild major neurocognitive disorder due to traumatic brain injury with behavioral disturbance ICD Codes: S06.9X9S - Unspecified intracranial injury with loss of consciousness of unspecified duration, sequela; F02.81 - Dementia in other diseases classified elsewhere with behavioral disturbance (5) Acute kidney injury ICD Codes: N17.9 - Acute kidney failure, unspecified Plan Patient has been non oliguric. Creatinine improving, now 1.26, K is normal, urine out put is good. On IVF, decreased to 75 ml/min., Weaning as per CCM. PEG was done. Follow the urine out put and BMP. Avoid Nephrotoxins. Negrita Jean MD Jun 23, 2017 17:34
[2017-06-24] VITALS (19 sets, daily range): BP systolic 98–139; BP diastolic 55–65; PULSE 68–90; RESP 20–30; TEMP 97.4–99; O2SAT 95–100
[2017-06-24] MEDS: CHLORHEXIDINE GLUCONATE 2 % 1 PACK (2 CLOTHS) TOP SCH (04:00)
[2017-06-24] MEDS: HEPARIN SODIUM - SQ 10,000 UNITS/ML VIAL SQ SCH ×3 (04:00→20:30)
[2017-06-24 06:12] LABS: AUTOMATED NEUTROPHIL # 20.7 TH/MM3 (1.8-7.7); BASOPHIL % 0.1 % (0.0-2.0); EOSINOPHIL % 0.1 % (0.0-4.0); HEMOGLOBIN 9.5 GM/DL (13.0-17.0); LYMPH % 6.4 % (9.0-44.0); LYMPHOCYTE # 1.5 TH/MM3 (1.0-4.8); MEAN CELL VOLUME 92.9 FL (80.0-100.0); MEAN CORPUSCULAR HEMOGLOBIN 30.4 PG (27.0-34.0); MEAN CORPUSCULAR HGB CONC 32.8 % (32.0-36.0); MEAN PLATELET VOLUME 8.1 FL (7.0-11.0); MONOCYTE # 0.7 TH/MM3 (0-0.9); NEUT % 90.4 % (16.0-70.0); PLATELET COUNT 346 TH/MM3 (150-450); RED BLOOD COUNT 3.12 MIL/MM3 (4.50-5.90); RED CELL DISTRIBUTION WIDTH 13.4 % (11.6-17.2); WHITE BLOOD COUNT 22.9 TH/MM3 (4.0-11.0)
[2017-06-24 06:32] LABS: ALBUMIN 1.6 GM/DL (3.4-5.0); AST (GOT) 70 U/L (15-37); BLOOD UREA NITROGEN 34 MG/DL (7-18); CALCIUM 8.4 MG/DL (8.5-10.1); CHLORIDE 107 MEQ/L (98-107); CREATININE 1.38 MG/DL (0.60-1.30); GLOMERULAR FILTRATION RATE 52 ML/MIN (>89); GLUCOSE,RANDOM 114 MG/DL (74-106); SODIUM (NA) 138 MEQ/L (136-145)
[2017-06-24 06:35] LABS: ALKALINE PHOSPHATASE 82 U/L (45-117); ALT (GPT) 28 U/L (12-78); TOTAL BILIRUBIN ADULT 0.4 MG/DL (0.2-1.0); TOTAL PROTEIN 6.9 GM/DL (6.4-8.2)
[2017-06-24] MEDS: AMANTADINE HCL SOLN 100 MG/10 ML UDC PO SCH ×2 (06:47→14:00)
[2017-06-24 07:20] LABS: BANDS 7 % (0-6); LYMPHOCYTES 1 % (9-44); MONOCYTES 3 % (0-8); MYELOCYTES 1 % (0-0); NEUTROPHIL # MANUAL DIFF 21.8 TH/MM3 (1.8-7.7); POLYS (SEG NEUTROPHILS) 87 % (16-70)
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
[2017-06-24] MEDS: INSULIN ASPART SUPPLEMENTAL SCALE SQ SCH ×4 (08:00→18:00)
[2017-06-24] MEDS: CHLORHEXIDINE 0.12% (ORAL KIT) 15 ML CUP MT SCH ×2 (08:00→20:30)
--- NOTE | 2017-06-24 08:58 | RADRPT ---
EXAM DATE/TIME: 06/24/2017 07:56 [facility] COMPARISON: No previous studies available for comparison. INDICATIONS : Fever MEDICAL HISTORY : None. SURGICAL HISTORY : Lap band. Adrenal gland removed ENCOUNTER: Subsequent ACUITY: 2 weeks PAIN SCORE: Non-responsive. LOCATION: chest FINDINGS: A single view of the chest demonstrates persistent bilateral perihilar vascular congestion. The trach eostomy tube and nasogastric are both in good position. Small bilateral pleural effusions. No visible pneumothorax.. The cardiomediastinal contours are unremarkable. Osseous structures are intact. CONCLUSION: Small perihilar vascular congestion. Small bilateral pleural effusions. Hardeep Ramesh MD on June 24, 2017 at 8:55 Board Certified Radiologist. This report was verified electronically.
[2017-06-24] MEDS: BENEPROTEIN POWDER 1 PACK G-TUBE SCH ×3 (09:00→18:00)
[2017-06-24] MEDS: BACITRACIN TOP OINT 15 GM TUBE TOPICAL SCH ×2 (09:00→22:52)
[2017-06-24] MEDS: SODIUM CHLOR 0.9% 1000 ML INJ 1,000 ML IV SCH (10:15)
[2017-06-24] MEDS: THIAMINE INJ 100 MG in SODIUM CHLORIDE 0.9% INJ 100 ML IV SCH (10:40)
[2017-06-24] MEDS: MAGNESIUM HYDROXIDE SUSP 30 ML CUP PO SCH ×2 (10:40→21:00)
[2017-06-24] MEDS: LACTULOSE SYRUP 20 GM/30 ML CUP PO SCH (10:40)
[2017-06-24] MEDS: DOCUSATE SODIUM 50 MG/SENNA 8.6 MG TAB PO SCH ×2 (10:40→21:00)
[2017-06-24] MEDS: FAMOTIDINE 20 MG TAB NG SCH ×2 (10:40→21:00)
[2017-06-24] MEDS: LEVOFLOXACIN 750 MG PREMIX INJ 150 ML IV SCH (11:34)
[2017-06-24] MEDS: PIPERACIL-TAZO 3.375 GM PREMIX 50 ML IV SCH ×3 (11:34→22:52)
--- NOTE | 2017-06-24 12:29 | HHI.NPPN ---
Subjective General Problems: Anemia, Edema Renal Failure: Chronic, Acute, Stage III History of Present Illness 61-year-old male with past medical history of diabetes mellitus, history of Lap-band, lymphedema of the lower leg, morbid obesity and neuropathy who was admitted on June 06 with intracranial hemorrhage. I was called to see the patient because of elevated BUN and creatinine. The patient has a creatinine of 1.6 on admission which improved and it was 1.2 and then it started going up again and then improved to 1.4 and now since yesterday it started going up and now it is 2.0. Additional Remarks Patient remain lethargic, on the vent., remain unresponsive. Review of Systems General General Remarks Cannot take. Objective Data Data Vital Signs Date Time Temp Pulse Resp B/P (MAP) Pulse Ox O2 Delivery O2 Flow Rate FiO2 06/24/17 09:35 95 T-piece 35 06/24/17 08:00 100 06/24/17 08:00 71 06/24/17 07:28 98 30 06/24/17 07:00 97 Mechanical Ventilator 30 06/24/17 06:00 68 06/24/17 04:00 76 06/24/17 04:00 100 06/24/17 04:00 98.6 76 20 111/63 (79) 97 06/24/17 03:00 97 Ventilator 06/24/17 02:57 97 30 06/24/17 02:00 74 06/24/17 00:00 74 06/24/17 00:00 100 06/24/17 00:00 98.2 74 22 104/64 (77) 97 06/23/17 23:36 100 Ventilator 06/23/17 23:29 97 30 06/23/17 22:00 74 06/23/17 20:00 98.5 84 22 122/59 (80) 100 06/23/17 20:00 78 06/23/17 20:00 100 06/23/17 20:00 99 Mechanical Ventilator 30 06/23/17 19:37 97 Ventilator 30 06/23/17 19:37 97 30 06/23/17 18:00 78 06/23/17 16:01 98 30 06/23/17 16:00 98.2 74 25 104/57 (73) 97 06/23/17 16:00 100 06/23/17 16:00 77 06/23/17 14:00 67 -: 06/24/17 0359 06/24/17 0359 Physical Exam General Appearance Remarks Patient with Trach. and T-Piece, in mild resp. distress, unresponsive. Eyes Eye Exam: Pupils Equal Throat Throat Exam: Oral Mucosa [place] & Moist Neck Neck Exam: Neck Supple Pulmonary Resp Exam: Crackles, Rhonchi, Sputum, Decreased Bases, Diminished Breath Sounds Cardiology CV Exam: Regular, Normal Sinus Rhythm Gastrointestinal/Abdomen GI Exam: Soft, Non-Tender, Distended Extremeties Extremities Exam: Trace Edema Neurologic Neuro Exam: Obtunded, Unresponsive Assessment/Plan Assessment Summary: NANDO/Acute Renal Failure, CKD Stage III Problem List: (1) SDH (subdural hematoma) ICD Codes: I62.00 - Nontraumatic subdural hemorrhage, unspecified Status: Acute (2) ICH (intracerebral hemorrhage) ICD Codes: I61.9 - Nontraumatic intracerebral hemorrhage, unspecified Status: Acute (3) Scalp laceration ICD Codes: S01.01XA - Laceration without foreign body of scalp, initial encounter Status: Acute (4) Mild major neurocognitive disorder due to traumatic brain injury with behavioral disturbance ICD Codes: S06.9X9S - Unspecified intracranial injury with loss of consciousness of unspecified duration, sequela; F02.81 - Dementia in other diseases classified elsewhere with behavioral disturbance (5) Acute kidney injury ICD Codes: N17.9 - Acute kidney failure, unspecified Plan Patient has been non oliguric. Creatinine is stable, now 1.2-1.3. K is normal, urine out put is good. On IVF, decreased to 75 ml/min., Weaning as per CCM. PEG was done. Follow the urine out put and BMP. Avoid Nephrotoxins. Negrita Jean MD Jun 24, 2017 12:29
--- NOTE | 2017-06-24 13:06 | MP ---
cc: MARC GUTIERREZ MD DATE OF SURGERY 06/23/2017 PREOPERATIVE DIAGNOSIS 1. Traumatic brain injury. 2. Previous abdominal surgeries. POSTOPERATIVE DIAGNOSIS 1. Traumatic brain injury. 2. Previous abdominal surgeries. 3. Severe intra-abdominal adhesions. OPERATIVE PROCEDURE 1. Feeding tube jejunostomy. 2. Lysis of adhesions. SURGEON Nahomy. ANESTHESIA General. ESTIMATED BLOOD LOSS 20 cc. DETAILS OF PROCEDURE The patient is prepped and draped in the usual fashion. An epigastric incision is made, deepened and the abdomen entered. Upon entrance of the abdomen it is evident the patient has massive adhesions between the anterior abdominal wall, colon and omentum. Very gradually these are taken down on both sides and then lysed inferiorly in order to even get to the small bowel. Finally once I got to the small bowel this seems to be free of adhesions and normal in size and lumen. The proximal and distal small bowel is run to determine which end is which and once this is done a pursestring is placed about a foot or so from the ligament of Treitz and then a 20 Romanian feeding jejunostomy tube is introduced through a separate stab wound in the lateral left abdominal wall. An opening is made into the intestine and the tube is guided down. The pursestring is now tied and 3-0 silk pop-offs are used to create a Witzel tunnel and secure the tube in place. The small bowel is now tacked to the inferior portion of the anterior abdominal wall using 2-0 Vicryl horizontal mattress sutures. When this is done another few silks are placed between the anterior abdominal wall and jejunum to avoid any kinking. The tube is now flushed with saline and flushes easily. The area is irrigated with copious amounts of saline. The incision is closed with #1 PDS loop and sonal and then the tube is secured to the skin with 2-0 nylon. The patient tolerated the procedure well. Marc BRUMFIELD/ZACH /1:08 PM /12:49 PM
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
[2017-06-25] VITALS (16 sets, daily range): BP systolic 103–151; BP diastolic 58–80; PULSE 62–78; RESP 22–35; TEMP 97.7–99.6; O2SAT 94–100
[2017-06-25] MEDS: CHLORHEXIDINE GLUCONATE 2 % 1 PACK (2 CLOTHS) TOP SCH (04:00)
[2017-06-25] MEDS: SODIUM CHLOR 0.9% 1000 ML INJ 1,000 ML IV SCH ×3 (05:30→22:05)
[2017-06-25] MEDS: HEPARIN SODIUM - SQ 10,000 UNITS/ML VIAL SQ SCH ×3 (05:30→21:58)
[2017-06-25] MEDS: PIPERACIL-TAZO 3.375 GM PREMIX 50 ML IV SCH ×4 (05:30→23:17)
[2017-06-25 05:44] LABS: AUTOMATED NEUTROPHIL # 12.5 TH/MM3 (1.8-7.7); BASOPHIL % 0.2 % (0.0-2.0); EOSINOPHIL # 0.2 TH/MM3 (0-0.4); EOSINOPHIL % 1.2 % (0.0-4.0); HEMOGLOBIN 9.7 GM/DL (13.0-17.0); LYMPH % 10.8 % (9.0-44.0); LYMPHOCYTE # 1.6 TH/MM3 (1.0-4.8); MEAN CORPUSCULAR HGB CONC 33.3 % (32.0-36.0); MEAN PLATELET VOLUME 7.9 FL (7.0-11.0); MONO % 3.8 % (0.0-8.0); MONOCYTE # 0.6 TH/MM3 (0-0.9); PLATELET COUNT 331 TH/MM3 (150-450); RED BLOOD COUNT 3.12 MIL/MM3 (4.50-5.90); RED CELL DISTRIBUTION WIDTH 13.9 % (11.6-17.2); WHITE BLOOD COUNT 14.9 TH/MM3 (4.0-11.0)
[2017-06-25] MEDS: INSULIN ASPART SUPPLEMENTAL SCALE SQ SCH ×4 (06:00→18:00)
[2017-06-25 06:07] LABS: ALBUMIN 1.8 GM/DL (3.4-5.0); AST (GOT) 53 U/L (15-37); BICARBONATE 26.3 MEQ/L (21.0-32.0); BLOOD UREA NITROGEN 40 MG/DL (7-18); CALCIUM 8.6 MG/DL (8.5-10.1); CHLORIDE 104 MEQ/L (98-107); CREATININE 1.57 MG/DL (0.60-1.30); GLOMERULAR FILTRATION RATE 45 ML/MIN (>89); GLUCOSE,RANDOM 98 MG/DL (74-106); SODIUM (NA) 140 MEQ/L (136-145)
[2017-06-25 06:08] LABS: ALT (GPT) 23 U/L (12-78)
[2017-06-25 06:10] LABS: ALKALINE PHOSPHATASE 85 U/L (45-117); TOTAL BILIRUBIN ADULT 0.6 MG/DL (0.2-1.0)
[2017-06-25] MEDS: AMANTADINE HCL SOLN 100 MG/10 ML UDC PO SCH ×2 (07:00→15:15)
[2017-06-25] MEDS: RESP: ALBUTEROL 2.5 MG/IPRATROPIUM 0.5 MG NEB (PRN) NEB (08:10)
[2017-06-25 08:12] LABS: BANDS 3 % (0-6); LYMPHOCYTES 9 % (9-44); METAMYELOCYTES 2 % (0-1); MONOCYTES 1 % (0-8); NEUTROPHIL # MANUAL DIFF 13.1 TH/MM3 (1.8-7.7); POLYS (SEG NEUTROPHILS) 83 % (16-70)
[2017-06-25] MEDS: MAGNESIUM HYDROXIDE SUSP 30 ML CUP PO SCH ×2 (09:00→21:59)
[2017-06-25] MEDS: DOCUSATE SODIUM 50 MG/SENNA 8.6 MG TAB PO SCH ×2 (09:00→21:59)
[2017-06-25] MEDS: BENEPROTEIN POWDER 1 PACK G-TUBE SCH ×3 (09:00→18:00)
[2017-06-25] MEDS: LACTULOSE SYRUP 20 GM/30 ML CUP PO SCH (09:39)
[2017-06-25] MEDS: THIAMINE INJ 100 MG in SODIUM CHLORIDE 0.9% INJ 100 ML IV SCH (09:39)
[2017-06-25] MEDS: FAMOTIDINE 20 MG TAB NG SCH ×2 (09:39→21:58)
[2017-06-25] MEDS: BACITRACIN TOP OINT 15 GM TUBE TOPICAL SCH ×2 (09:40→21:59)
[2017-06-25] MEDS: CHLORHEXIDINE 0.12% (ORAL KIT) 15 ML CUP MT SCH ×2 (09:40→21:58)
[2017-06-25] MEDS: LEVOFLOXACIN 750 MG PREMIX INJ 150 ML IV SCH (10:54)
--- NOTE | 2017-06-25 15:09 | HHI.NPPN ---
Subjective General Problems: Anemia, Edema Renal Failure: Chronic, Acute, Stage III History of Present Illness 61-year-old male with past medical history of diabetes mellitus, history of Lap-band, lymphedema of the lower leg, morbid obesity and neuropathy who was admitted on June 06 with intracranial hemorrhage. I was called to see the patient because of elevated BUN and creatinine. The patient has a creatinine of 1.6 on admission which improved and it was 1.2 and then it started going up again and then improved to 1.4 and now since yesterday it started going up and now it is 2.0. Additional Remarks Patient remain lethargic, on the vent. clinically same, started on PEG feeding. Review of Systems General General Remarks Cannot take. Objective Data Data 06/25/17 06/26/17 19:00 07:00 Intake Total 251 ml Balance 251 ml IV Total 251 ml Vital Signs Date Time Temp Pulse Resp B/P (MAP) Pulse Ox O2 Delivery O2 Flow Rate FiO2 06/25/17 14:00 78 06/25/17 12:00 97.7 69 23 151/80 (103) 100 06/25/17 12:00 60 06/25/17 12:00 74 06/25/17 10:00 99 T-Piece 40 06/25/17 10:00 77 06/25/17 10:00 98 T-piece 5.00 40 06/25/17 08:11 98 40 06/25/17 08:00 69 06/25/17 08:00 98.5 69 23 103/61 (75) 100 06/25/17 08:00 60 06/25/17 07:30 100 Mechanical Ventilator 60 06/25/17 06:00 71 06/25/17 04:00 99.6 68 25 114/66 (82) 100 06/25/17 04:00 60 06/25/17 04:00 68 06/25/17 03:30 100 60 06/25/17 02:00 73 06/25/17 00:00 60 06/25/17 00:00 98.7 73 35 107/58 (74) 94 06/25/17 00:00 73 06/24/17 23:51 96 60 06/24/17 22:00 70 06/24/17 21:10 95 60 06/24/17 20:00 60 12/21/17 20:00 98.4 70 30 111/64 (80) 97 06/24/17 20:00 72 06/24/17 19:00 88 Mechanical Ventilator 60 06/24/17 18:00 69 06/24/17 17:05 95 30 06/24/17 17:00 30 06/24/17 16:00 99.0 73 30 98/58 (71) 96 06/24/17 16:00 73 -: 06/25/17 0355 06/25/17 0355 Microbiology 06/25/17 Aerobic Blood Culture, Received Pending 06/25/17 Anaerobic Blood Culture, Received Pending 06/25/17 Aerobic Blood Culture, Received Pending 06/25/17 Anaerobic Blood Culture, Received Pending Physical Exam General Appearance Remarks Patient with Trach. and T-Piece, in mild resp. distress, unresponsive. Eyes Eye Exam: Pupils Equal Throat Throat Exam: Oral Mucosa [place] & Moist Neck Neck Exam: Neck Supple Pulmonary Resp Exam: Crackles, Rhonchi, Sputum, Decreased Bases, Diminished Breath Sounds Cardiology CV Exam: Regular, Normal Sinus Rhythm Gastrointestinal/Abdomen GI Exam: Soft, Non-Tender, Distended Extremeties Extremities Exam: Trace Edema Neurologic Neuro Exam: Obtunded, Unresponsive Assessment/Plan Assessment Summary: NANDO/Acute Renal Failure, CKD Stage III Problem List: (1) SDH (subdural hematoma) ICD Codes: I62.00 - Nontraumatic subdural hemorrhage, unspecified Status: Acute (2) ICH (intracerebral hemorrhage) ICD Codes: I61.9 - Nontraumatic intracerebral hemorrhage, unspecified Status: Acute (3) Scalp laceration ICD Codes: S01.01XA - Laceration without foreign body of scalp, initial encounter Status: Acute (4) Mild major neurocognitive disorder due to traumatic brain injury with behavioral disturbance ICD Codes: S06.9X9S - Unspecified intracranial injury with loss of consciousness of unspecified duration, sequela; F02.81 - Dementia in other diseases classified elsewhere with behavioral disturbance (5) Acute kidney injury ICD Codes: N17.9 - Acute kidney failure, unspecified Plan Patient has been non oliguric. K is normal, urine out put is good. On IVF, decreased to 75 ml/min., Weaning as per CCM. PEG was done. Follow the urine out put and BMP. Avoid Nephrotoxins. Slight increase in the Creatinine, now 1.5. Continue IVF and GT feeding, follow BMP and the urine out put. Negrita Jean MD Jun 25, 2017 15:09
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
[2017-06-26] VITALS (14 sets, daily range): BP systolic 102–138; BP diastolic 58–79; PULSE 58–78; RESP 19–25; TEMP 97.7–99; O2SAT 96–100
[2017-06-26] MEDS: HEPARIN SODIUM - SQ 10,000 UNITS/ML VIAL SQ SCH ×3 (03:55→21:34)
[2017-06-26] MEDS: CHLORHEXIDINE GLUCONATE 2 % 1 PACK (2 CLOTHS) TOP SCH (04:00)
[2017-06-26] MEDS: PIPERACIL-TAZO 3.375 GM PREMIX 50 ML IV SCH ×4 (04:46→22:50)
[2017-06-26 04:49] LABS: AUTOMATED NEUTROPHIL # 5.5 TH/MM3 (1.8-7.7); BASOPHIL % 0.6 % (0.0-2.0); EOSINOPHIL # 0.3 TH/MM3 (0-0.4); EOSINOPHIL % 3.9 % (0.0-4.0); HEMATOCRIT 29.1 % (39.0-51.0); HEMOGLOBIN 9.8 GM/DL (13.0-17.0); LYMPH % 19.1 % (9.0-44.0); LYMPHOCYTE # 1.5 TH/MM3 (1.0-4.8); MEAN CELL VOLUME 93.5 FL (80.0-100.0); MEAN CORPUSCULAR HEMOGLOBIN 31.6 PG (27.0-34.0); MEAN CORPUSCULAR HGB CONC 33.8 % (32.0-36.0); MEAN PLATELET VOLUME 7.7 FL (7.0-11.0); MONOCYTE # 0.4 TH/MM3 (0-0.9); NEUT % 71.4 % (16.0-70.0); PLATELET COUNT 312 TH/MM3 (150-450); RED BLOOD COUNT 3.11 MIL/MM3 (4.50-5.90); RED CELL DISTRIBUTION WIDTH 13.7 % (11.6-17.2); WHITE BLOOD COUNT 7.7 TH/MM3 (4.0-11.0)
[2017-06-26 05:02] LABS: ALBUMIN 1.8 GM/DL (3.4-5.0); AST (GOT) 53 U/L (15-37); BICARBONATE 26.1 MEQ/L (21.0-32.0); BLOOD UREA NITROGEN 34 MG/DL (7-18); CALCIUM 8.2 MG/DL (8.5-10.1); CHLORIDE 109 MEQ/L (98-107); CREATININE 1.24 MG/DL (0.60-1.30); GLOMERULAR FILTRATION RATE 59 ML/MIN (>89); GLUCOSE,RANDOM 79 MG/DL (74-106); SODIUM (NA) 142 MEQ/L (136-145)
[2017-06-26 05:05] LABS: ALKALINE PHOSPHATASE 89 U/L (45-117); ALT (GPT) 21 U/L (12-78); TOTAL BILIRUBIN ADULT 0.7 MG/DL (0.2-1.0); TOTAL PROTEIN 6.8 GM/DL (6.4-8.2)
[2017-06-26] MEDS: INSULIN ASPART SUPPLEMENTAL SCALE SQ SCH ×4 (06:00→18:00)
[2017-06-26] MEDS: AMANTADINE HCL SOLN 100 MG/10 ML UDC PO SCH ×2 (08:12→14:01)
[2017-06-26] MEDS: LACTULOSE SYRUP 20 GM/30 ML CUP PO SCH (08:12)
[2017-06-26] MEDS: THIAMINE INJ 100 MG in SODIUM CHLORIDE 0.9% INJ 100 ML IV SCH (08:12)
[2017-06-26] MEDS: FAMOTIDINE 20 MG TAB NG SCH ×2 (08:12→21:35)
[2017-06-26] MEDS: MAGNESIUM HYDROXIDE SUSP 30 ML CUP PO SCH ×2 (08:12→21:00)
[2017-06-26] MEDS: DOCUSATE SODIUM 50 MG/SENNA 8.6 MG TAB PO SCH ×2 (08:12→21:35)
[2017-06-26] MEDS: BACITRACIN TOP OINT 15 GM TUBE TOPICAL SCH ×2 (08:13→21:36)
[2017-06-26] MEDS: BENEPROTEIN POWDER 1 PACK G-TUBE SCH ×3 (08:13→18:27)
[2017-06-26] MEDS: CHLORHEXIDINE 0.12% (ORAL KIT) 15 ML CUP MT SCH ×2 (08:13→21:36)
[2017-06-26] MEDS ORDERED: BISACODYL 10 MG SUPP RECTAL ONE (08:30)
[2017-06-26] MEDS ORDERED: MAGNESIUM CITRATE SOLN 300 ML BTL PO ONE (09:30)
[2017-06-26] MEDS: LEVOFLOXACIN 750 MG PREMIX INJ 150 ML IV SCH (10:32)
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
[2017-06-26] MEDS: SODIUM CHLOR 0.9% 1000 ML INJ 1,000 ML IV SCH (14:39)
[2017-06-26] MEDS ORDERED: DIATRIZOATE MEGLUM/DIATRIZOATE SOD 120 ML BTL (for RAD DIAG) J-TUBE ONE (14:45)
--- NOTE | 2017-06-26 14:45 | RADRPT ---
EXAM DATE/TIME: 06/26/2017 14:04 [facility] COMPARISON: CT PULMONARY ANGIOGRAM, June 14, 2017, 12:53. ABDOMEN SINGLE VIEW, June 11, 2017, 13:24. INDICATIONS : J tube placement MEDICAL HISTORY : Headache. Neuropathy. SURGICAL HISTORY : Lap band. Adrenal gland removed. ENCOUNTER: Initial ACUITY: 3 weeks PAIN SCORE: Non-responsive. LOCATION: Bilateral abdomen FINDINGS: Jejunostomy tube in good position. Radiographic contrast left upper quadrant uncertain significance. CONCLUSION: Jejunostomy tube in good position.. Max Thomson MD FACR on June 26, 2017 at 14:40 Board Certified Radiologist. This report was verified electronically.
--- NOTE | 2017-06-26 17:37 | HHI.NPPN ---
Subjective General Problems: Anemia, Edema Renal Failure: Chronic, Acute, Stage III History of Present Illness 61-year-old male with past medical history of diabetes mellitus, history of Lap-band, lymphedema of the lower leg, morbid obesity and neuropathy who was admitted on June 06 with intracranial hemorrhage. I was called to see the patient because of elevated BUN and creatinine. The patient has a creatinine of 1.6 on admission which improved and it was 1.2 and then it started going up again and then improved to 1.4 and now since yesterday it started going up and now it is 2.0. Additional Remarks Patient remain lethargic, on the vent. clinically same, not in distress. Review of Systems General General Remarks Cannot take. Objective Data Data Vital Signs Date Time Temp Pulse Resp B/P (MAP) Pulse Ox O2 Delivery O2 Flow Rate FiO2 06/26/17 16:00 28 06/26/17 16:00 66 06/26/17 14:00 65 06/26/17 12:00 66 06/26/17 12:00 28 06/26/17 10:00 64 06/26/17 08:08 98 T-piece 5.00 28 06/26/17 08:00 28 06/26/17 08:00 98.2 68 22 126/62 (83) 100 06/26/17 08:00 68 06/26/17 07:00 99 T-Piece 28 06/26/17 06:00 62 06/26/17 04:00 63 06/26/17 04:00 98.2 63 19 125/63 (83) 100 06/26/17 04:00 28 06/26/17 02:00 62 06/26/17 00:00 28 06/26/17 00:00 98.4 64 19 124/62 (82) 99 06/26/17 00:00 64 06/25/17 22:00 62 06/25/17 20:00 62 06/25/17 20:00 98.3 66 22 118/71 (87) 99 06/25/17 20:00 28 06/25/17 19:50 100 T-piece 28 06/25/17 19:00 100 T-Piece 28 06/25/17 18:00 68 -: 06/26/17 0356 06/26/17 0356 Physical Exam General Appearance Remarks Patient with Trach. and T-Piece, in mild resp. distress, unresponsive. Eyes Eye Exam: Pupils Equal Throat Throat Exam: Oral Mucosa [place] & Moist Neck Neck Exam: Neck Supple Pulmonary Resp Exam: Crackles, Rhonchi, Sputum, Decreased Bases, Diminished Breath Sounds Cardiology CV Exam: Regular, Normal Sinus Rhythm Gastrointestinal/Abdomen GI Exam: Soft, Non-Tender, Distended Extremeties Extremities Exam: Trace Edema Neurologic Neuro Exam: Obtunded, Unresponsive Assessment/Plan Assessment Summary: NANDO/Acute Renal Failure, CKD Stage III Problem List: (1) SDH (subdural hematoma) ICD Codes: I62.00 - Nontraumatic subdural hemorrhage, unspecified Status: Acute (2) ICH (intracerebral hemorrhage) ICD Codes: I61.9 - Nontraumatic intracerebral hemorrhage, unspecified Status: Acute (3) Scalp laceration ICD Codes: S01.01XA - Laceration without foreign body of scalp, initial encounter Status: Acute (4) Mild major neurocognitive disorder due to traumatic brain injury with behavioral disturbance ICD Codes: S06.9X9S - Unspecified intracranial injury with loss of consciousness of unspecified duration, sequela; F02.81 - Dementia in other diseases classified elsewhere with behavioral disturbance (5) Acute kidney injury ICD Codes: N17.9 - Acute kidney failure, unspecified Plan Patient has been non oliguric. K is normal, urine out put is good. On IVF, decreased to 75 ml/min., Weaning as per CCM. PEG was done. Follow the urine out put and BMP. Avoid Nephrotoxins. Continue IVF and GT feeding, Creatinine is better, if tolerating the GT feeding, can D/C IVF. Negrita Jean MD Jun 26, 2017 17:37
[2017-06-27] VITALS (18 sets, daily range): BP systolic 101–121; BP diastolic 56–73; PULSE 66–82; RESP 21–28; TEMP 97.8–98.4; O2SAT 95–100
[2017-06-27] MEDS: CHLORHEXIDINE GLUCONATE 2 % 1 PACK (2 CLOTHS) TOP SCH (04:00)
[2017-06-27] MEDS: SODIUM CHLOR 0.9% 1000 ML INJ 1,000 ML IV SCH (04:12)
--- NOTE | 2017-06-27 04:37 | RADRPT ---
EXAM DATE/TIME: 06/27/2017 04:17 [facility] COMPARISON: CHEST SINGLE AP, June 24, 2017, 7:56. INDICATIONS : Low sats. Respiratory failure. MEDICAL HISTORY : None. SURGICAL HISTORY : None. ENCOUNTER: Subsequent ACUITY: 4 - 6 days PAIN SCORE: Non-responsive. LOCATION: Bilateral chest FINDINGS: Tracheostomy and nasogastric tube remain in place. There has been slight improvement in aeration with decrease in confluence of hazy bilateral pleural-parenchymal opacities. Cardiac contours are grossly unchanged. CONCLUSION: Improving aeration Kranthi Schultz MD on June 27, 2017 at 4:35 Board Certified Radiologist. This report was verified electronically.
[2017-06-27] MEDS: HEPARIN SODIUM - SQ 10,000 UNITS/ML VIAL SQ SCH ×3 (04:39→20:54)
[2017-06-27] MEDS: PIPERACIL-TAZO 3.375 GM PREMIX 50 ML IV SCH ×4 (04:42→23:16)
[2017-06-27 05:14] LABS: ALBUMIN 1.8 GM/DL (3.4-5.0); AST (GOT) 78 U/L (15-37); BICARBONATE 23.3 MEQ/L (21.0-32.0); BLOOD UREA NITROGEN 30 MG/DL (7-18); CALCIUM 8.2 MG/DL (8.5-10.1); CHLORIDE 109 MEQ/L (98-107); CREATININE 1.26 MG/DL (0.60-1.30); GLOMERULAR FILTRATION RATE 58 ML/MIN (>89); GLUCOSE,RANDOM 119 MG/DL (74-106); SODIUM (NA) 141 MEQ/L (136-145)
[2017-06-27 05:15] LABS: ALT (GPT) 31 U/L (12-78)
[2017-06-27 05:17] LABS: ALKALINE PHOSPHATASE 123 U/L (45-117); TOTAL BILIRUBIN ADULT 0.6 MG/DL (0.2-1.0); TOTAL PROTEIN 6.8 GM/DL (6.4-8.2)
[2017-06-27 05:37] LABS: AUTOMATED NEUTROPHIL # 9.7 TH/MM3 (1.8-7.7); BASOPHIL # 0.1 TH/MM3 (0-0.2); BASOPHIL % 0.7 % (0.0-2.0); EOSINOPHIL # 0.4 TH/MM3 (0-0.4); EOSINOPHIL % 2.8 % (0.0-4.0); HEMATOCRIT 29.7 % (39.0-51.0); HEMOGLOBIN 9.7 GM/DL (13.0-17.0); LYMPH % 17.8 % (9.0-44.0); LYMPHOCYTE # 2.4 TH/MM3 (1.0-4.8); MEAN CORPUSCULAR HEMOGLOBIN 30.9 PG (27.0-34.0); MEAN CORPUSCULAR HGB CONC 32.5 % (32.0-36.0); MEAN PLATELET VOLUME 8.2 FL (7.0-11.0); MONOCYTE # 0.8 TH/MM3 (0-0.9); NEUT % 72.7 % (16.0-70.0); PLATELET COUNT 374 TH/MM3 (150-450); RED BLOOD COUNT 3.13 MIL/MM3 (4.50-5.90); RED CELL DISTRIBUTION WIDTH 13.6 % (11.6-17.2); WHITE BLOOD COUNT 13.3 TH/MM3 (4.0-11.0)
[2017-06-27] MEDS: INSULIN ASPART SUPPLEMENTAL SCALE SQ SCH ×4 (06:00→18:00)
[2017-06-27] MEDS: CHLORHEXIDINE 0.12% (ORAL KIT) 15 ML CUP MT SCH ×2 (08:00→20:56)
[2017-06-27] MEDS: BENEPROTEIN POWDER 1 PACK G-TUBE SCH ×3 (08:48→18:00)
[2017-06-27] MEDS: THIAMINE INJ 100 MG in SODIUM CHLORIDE 0.9% INJ 100 ML IV SCH (08:48)
[2017-06-27] MEDS: FAMOTIDINE 20 MG TAB NG SCH ×2 (08:48→20:54)
[2017-06-27] MEDS: LACTULOSE SYRUP 20 GM/30 ML CUP PO SCH (08:48)
[2017-06-27] MEDS: AMANTADINE HCL SOLN 100 MG/10 ML UDC PO SCH ×2 (08:48→13:44)
[2017-06-27] MEDS: DOCUSATE SODIUM 50 MG/SENNA 8.6 MG TAB PO SCH ×2 (08:49→20:55)
[2017-06-27] MEDS: MAGNESIUM HYDROXIDE SUSP 30 ML CUP PO SCH ×2 (08:49→20:55)
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
[2017-06-27] MEDS: FREE WATER G-TUBE SCH ×2 (12:00→18:00)
[2017-06-27] MEDS: LEVOFLOXACIN 750 MG PREMIX INJ 150 ML IV SCH (12:25)
[2017-06-27] MEDS: BACITRACIN TOP OINT 15 GM TUBE TOPICAL SCH ×2 (20:56→21:00)
[2017-06-28] VITALS (16 sets, daily range): BP systolic 92–133; BP diastolic 59–66; PULSE 70–80; RESP 20–27; TEMP 98.7–100; O2SAT 100
[2017-06-28] MEDS: CHLORHEXIDINE GLUCONATE 2 % 1 PACK (2 CLOTHS) TOP SCH (04:00)
[2017-06-28] MEDS: HEPARIN SODIUM - SQ 10,000 UNITS/ML VIAL SQ SCH ×3 (04:06→21:09)
[2017-06-28] MEDS: PIPERACIL-TAZO 3.375 GM PREMIX 50 ML IV SCH ×4 (04:07→23:00)
[2017-06-28 04:14] LABS: AUTOMATED NEUTROPHIL # 7.7 TH/MM3 (1.8-7.7); BASOPHIL # 0.1 TH/MM3 (0-0.2); BASOPHIL % 1.4 % (0.0-2.0); EOSINOPHIL # 0.4 TH/MM3 (0-0.4); EOSINOPHIL % 3.6 % (0.0-4.0); HEMATOCRIT 30.4 % (39.0-51.0); HEMOGLOBIN 10.1 GM/DL (13.0-17.0); LYMPH % 16.1 % (9.0-44.0); LYMPHOCYTE # 1.7 TH/MM3 (1.0-4.8); MEAN CELL VOLUME 93.8 FL (80.0-100.0); MEAN CORPUSCULAR HEMOGLOBIN 31.2 PG (27.0-34.0); MEAN CORPUSCULAR HGB CONC 33.3 % (32.0-36.0); MEAN PLATELET VOLUME 7.5 FL (7.0-11.0); MONO % 4.5 % (0.0-8.0); MONOCYTE # 0.5 TH/MM3 (0-0.9); NEUT % 74.4 % (16.0-70.0); PLATELET COUNT 310 TH/MM3 (150-450); RED BLOOD COUNT 3.24 MIL/MM3 (4.50-5.90); RED CELL DISTRIBUTION WIDTH 14.1 % (11.6-17.2); WHITE BLOOD COUNT 10.4 TH/MM3 (4.0-11.0)
[2017-06-28 04:36] LABS: ALBUMIN 1.8 GM/DL (3.4-5.0); ALT (GPT) 35 U/L (12-78); AST (GOT) 77 U/L (15-37); BICARBONATE 23.6 MEQ/L (21.0-32.0); BLOOD UREA NITROGEN 38 MG/DL (7-18); CALCIUM 8.2 MG/DL (8.5-10.1); CHLORIDE 108 MEQ/L (98-107); CREATININE 1.29 MG/DL (0.60-1.30); GLOMERULAR FILTRATION RATE 56 ML/MIN (>89); GLUCOSE,RANDOM 95 MG/DL (74-106); SODIUM (NA) 140 MEQ/L (136-145)
[2017-06-28 04:38] LABS: ALKALINE PHOSPHATASE 143 U/L (45-117); TOTAL BILIRUBIN ADULT 0.6 MG/DL (0.2-1.0); TOTAL PROTEIN 6.7 GM/DL (6.4-8.2)
[2017-06-28] MEDS: INSULIN ASPART SUPPLEMENTAL SCALE SQ SCH ×3 (06:00→17:35)
[2017-06-28] MEDS: AMANTADINE HCL SOLN 100 MG/10 ML UDC PO SCH ×2 (06:22→15:15)
[2017-06-28] MEDS: FREE WATER G-TUBE SCH ×4 (06:25→17:36)
[2017-06-28] MEDS: CHLORHEXIDINE 0.12% (ORAL KIT) 15 ML CUP MT SCH ×2 (08:00→20:00)
[2017-06-28] MEDS: FAMOTIDINE 20 MG TAB NG SCH ×2 (08:46→21:08)
[2017-06-28] MEDS: THIAMINE INJ 100 MG in SODIUM CHLORIDE 0.9% INJ 100 ML IV SCH (08:46)
[2017-06-28] MEDS: MAGNESIUM HYDROXIDE SUSP 30 ML CUP PO SCH ×2 (08:57→21:00)
[2017-06-28] MEDS: DOCUSATE SODIUM 50 MG/SENNA 8.6 MG TAB PO SCH ×2 (08:57→21:00)
[2017-06-28] MEDS: LACTULOSE SYRUP 20 GM/30 ML CUP PO SCH (08:57)
[2017-06-28] MEDS: BENEPROTEIN POWDER 1 PACK G-TUBE SCH ×3 (08:57→17:36)
[2017-06-28] MEDS: BACITRACIN TOP OINT 15 GM TUBE TOPICAL SCH ×2 (09:00→21:00)
--- NOTE | 2017-06-28 11:29 | HHI.NPPN ---
Subjective General Problems: Anemia, Edema Renal Failure: Chronic, Acute, Stage III History of Present Illness 61-year-old male with past medical history of diabetes mellitus, history of Lap-band, lymphedema of the lower leg, morbid obesity and neuropathy who was admitted on June 06 with intracranial hemorrhage. I was called to see the patient because of elevated BUN and creatinine. The patient has a creatinine of 1.6 on admission which improved and it was 1.2 and then it started going up again and then improved to 1.4 and now since yesterday it started going up and now it is 2.0. Additional Remarks Patient remain lethargic, on the vent. clinically same. Review of Systems General General Remarks Cannot take. Objective Data Data Vital Signs Date Time Temp Pulse Resp B/P (MAP) Pulse Ox O2 Delivery O2 Flow Rate FiO2 06/28/17 09:54 100 40 06/28/17 08:00 40 06/28/17 08:00 99.2 72 20 97/61 (73) 100 06/28/17 08:00 72 06/28/17 07:00 100 Mechanical Ventilator 40 06/28/17 06:00 72 06/28/17 04:00 99.0 76 22 92/60 (71) 100 06/28/17 04:00 76 06/28/17 04:00 100 40 06/28/17 04:00 40 06/28/17 02:00 78 06/28/17 01:20 100 40 06/28/17 00:00 40 06/28/17 00:00 100.0 80 23 98/60 (73) 100 06/28/17 00:00 80 06/27/17 22:00 80 06/27/17 21:36 100 40 06/27/17 20:00 78 06/27/17 20:00 40 06/27/17 20:00 98.4 78 24 104/61 (75) 100 06/27/17 19:35 100 40 06/27/17 19:00 100 Mechanical Ventilator 50 06/27/17 18:00 73 06/27/17 16:07 100 40 06/27/17 16:00 40 06/27/17 16:00 82 06/27/17 16:00 98.2 82 23 101/66 (78) 100 06/27/17 14:00 82 12/24/17 12:46 40 06/27/17 12:45 100 40 06/27/17 12:00 98.4 75 25 107/73 (84) 100 06/27/17 12:00 75 06/27/17 12:00 40 -: 06/28/17 0347 06/28/17 0347 Physical Exam General Appearance Remarks Patient with Trach. and T-Piece, in mild resp. distress, unresponsive. Eyes Eye Exam: Pupils Equal Throat Throat Exam: Oral Mucosa [place] & Moist Neck Neck Exam: Neck Supple Pulmonary Resp Exam: Crackles, Rhonchi, Sputum, Decreased Bases, Diminished Breath Sounds Cardiology CV Exam: Regular, Normal Sinus Rhythm Gastrointestinal/Abdomen GI Exam: Soft, Non-Tender, Distended Extremeties Extremities Exam: Trace Edema Neurologic Neuro Exam: Obtunded, Unresponsive Assessment/Plan Assessment Summary: NANDO/Acute Renal Failure, CKD Stage III Problem List: (1) SDH (subdural hematoma) ICD Codes: I62.00 - Nontraumatic subdural hemorrhage, unspecified Status: Acute (2) ICH (intracerebral hemorrhage) ICD Codes: I61.9 - Nontraumatic intracerebral hemorrhage, unspecified Status: Acute (3) Scalp laceration ICD Codes: S01.01XA - Laceration without foreign body of scalp, initial encounter Status: Acute (4) Mild major neurocognitive disorder due to traumatic brain injury with behavioral disturbance ICD Codes: S06.9X9S - Unspecified intracranial injury with loss of consciousness of unspecified duration, sequela; F02.81 - Dementia in other diseases classified elsewhere with behavioral disturbance (5) Acute kidney injury ICD Codes: N17.9 - Acute kidney failure, unspecified Plan Patient has been non oliguric. K is normal, urine out put is good. Weaning as per CCM. PEG was done. Follow the urine out put and BMP. Avoid Nephrotoxins. Continue IVF and GT feeding, Creatinine is stable, I will see PRN as needed. Problem Qualifiers (1) Scalp laceration: Qualified Codes: S01.01XA - Laceration without foreign body of scalp, initial encounter Negrita Jean MD Jun 28, 2017 11:29
[2017-06-28] MEDS: LEVOFLOXACIN 750 MG PREMIX INJ 150 ML IV SCH (11:57)
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
[2017-06-29] VITALS (20 sets, daily range): BP systolic 97–115; BP diastolic 57–65; PULSE 75–88; RESP 25–37; TEMP 97.8–99.9; O2SAT 92–100
[2017-06-29] MEDS: CHLORHEXIDINE GLUCONATE 2 % 1 PACK (2 CLOTHS) TOP SCH ×2 (04:00→19:58)
[2017-06-29] MEDS: HEPARIN SODIUM - SQ 10,000 UNITS/ML VIAL SQ SCH ×3 (05:26→20:12)
[2017-06-29] MEDS: PIPERACIL-TAZO 3.375 GM PREMIX 50 ML IV SCH ×4 (05:26→22:20)
[2017-06-29] MEDS: INSULIN ASPART SUPPLEMENTAL SCALE SQ SCH ×4 (06:00→17:51)
[2017-06-29] MEDS: FREE WATER G-TUBE SCH ×4 (06:00→17:51)
[2017-06-29] MEDS: AMANTADINE HCL SOLN 100 MG/10 ML UDC PO SCH ×2 (06:05→14:05)
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
[2017-06-29] MEDS: BENEPROTEIN POWDER 1 PACK G-TUBE SCH ×3 (08:58→17:51)
[2017-06-29] MEDS: CHLORHEXIDINE 0.12% (ORAL KIT) 15 ML CUP MT SCH ×2 (08:58→20:00)
[2017-06-29] MEDS: THIAMINE INJ 100 MG in SODIUM CHLORIDE 0.9% INJ 100 ML IV SCH (08:58)
[2017-06-29] MEDS: MAGNESIUM HYDROXIDE SUSP 30 ML CUP PO SCH ×2 (09:00→20:12)
[2017-06-29] MEDS: LACTULOSE SYRUP 20 GM/30 ML CUP PO SCH (09:00)
[2017-06-29] MEDS: FAMOTIDINE 20 MG TAB NG SCH ×2 (09:06→20:11)
[2017-06-29] MEDS: DOCUSATE SODIUM 50 MG/SENNA 8.6 MG TAB PO SCH ×2 (09:06→20:12)
[2017-06-29] MEDS: BACITRACIN TOP OINT 15 GM TUBE TOPICAL SCH ×2 (09:06→20:12)
[2017-06-29] MEDS: LEVOFLOXACIN 750 MG PREMIX INJ 150 ML IV SCH (11:00)
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
[2017-06-30] VITALS (20 sets, daily range): BP systolic 91–113; BP diastolic 56–68; PULSE 72–102; RESP 27–40; TEMP 97.6–100.7; O2SAT 95–100
[2017-06-30] MEDS: HEPARIN SODIUM - SQ 10,000 UNITS/ML VIAL SQ SCH ×3 (03:39→20:35)
[2017-06-30] MEDS: PIPERACIL-TAZO 3.375 GM PREMIX 50 ML IV SCH ×4 (04:14→22:13)
[2017-06-30 05:34] LABS: BICARBONATE 26.6 MEQ/L (21.0-32.0); CALCIUM 7.9 MG/DL (8.5-10.1); CREATININE 1.38 MG/DL (0.60-1.30)
[2017-06-30] MEDS: FREE WATER G-TUBE SCH ×5 (06:00→23:53)
[2017-06-30] MEDS: INSULIN ASPART SUPPLEMENTAL SCALE SQ SCH ×5 (06:00→23:53)
[2017-06-30] MEDS: AMANTADINE HCL SOLN 100 MG/10 ML UDC PO SCH (07:01)
[2017-06-30] MEDS: CHLORHEXIDINE 0.12% (ORAL KIT) 15 ML CUP MT SCH ×2 (08:00→20:00)
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
[2017-06-30] MEDS: DOCUSATE SODIUM 50 MG/SENNA 8.6 MG TAB PO SCH ×2 (09:00→20:35)
[2017-06-30] MEDS: LACTULOSE SYRUP 20 GM/30 ML CUP PO SCH (09:00)
[2017-06-30] MEDS: MAGNESIUM HYDROXIDE SUSP 30 ML CUP PO SCH ×2 (09:00→20:35)
[2017-06-30] MEDS ORDERED: MORPHINE SULFATE 2 MG/ML INJ IV PUSH ONE (09:30)
[2017-06-30] MEDS: SODIUM CHLORIDE 0.9% FLUSH 10 ML FLUSH IV FLUSH PRN (09:38)
[2017-06-30] MEDS ORDERED: LORazepam 2 MG/ML VIAL IV PUSH PRN (09:45)
[2017-06-30] MEDS: BENEPROTEIN POWDER 1 PACK G-TUBE SCH ×3 (09:57→17:10)
[2017-06-30] MEDS: THIAMINE INJ 100 MG in SODIUM CHLORIDE 0.9% INJ 100 ML IV SCH (09:57)
[2017-06-30] MEDS: BACITRACIN TOP OINT 15 GM TUBE TOPICAL SCH ×2 (09:58→20:35)
[2017-06-30] MEDS: FAMOTIDINE 20 MG TAB NG SCH ×2 (09:59→20:35)
[2017-06-30] MEDS ORDERED: MORPHINE SULFATE 2 MG/ML INJ IV PRN (10:45)
[2017-06-30] MEDS: LEVOFLOXACIN 750 MG PREMIX INJ 150 ML IV SCH (11:36)
--- NOTE | 2017-06-30 11:40 | RADRPT ---
EXAM DATE/TIME: 06/30/2017 11:17 [facility] COMPARISON: CHEST SINGLE AP, June 22, 2017, 5:30. CHEST SINGLE AP, June 24, 2017, 7:56. CHEST SINGLE AP , June 27, 2017, 4:17. INDICATIONS : Verify tracheostomy tube placement. MEDICAL HISTORY : Headache. Neuropathy. SURGICAL HISTORY : Lap band. Adrenal gland removed. ENCOUNTER: Subsequent ACUITY: 3 weeks PAIN SCORE: Non-responsive. LOCATION: Bilateral chest FINDINGS: A single AP portable erect view of the chest was obtained and demonstrates a tracheostomy tube in allen ce. This is unchanged in appearance from the prior study. The nasogastric tube has been removed. Hazy opacity remains at both lung bases without change. The heart size is within normal limits. There is no effusion. There is stable contrast and poor calcifications in the left upper abdomen. CONCLUSION: 1. Tracheostomy tube in place without significant change. 2. Hazy opacity remains at both lung bases. Jt Dumas MD on June 30, 2017 at 11:37 Board Certified Radiologist. This report was verified electronically.
[2017-06-30 11:51] LABS: AUTOMATED NEUTROPHIL # 14.2 TH/MM3 (1.8-7.7); BASOPHIL # 0.1 TH/MM3 (0-0.2); BASOPHIL % 0.6 % (0.0-2.0); EOSINOPHIL # 0.4 TH/MM3 (0-0.4); EOSINOPHIL % 2.3 % (0.0-4.0); HEMATOCRIT 27.8 % (39.0-51.0); HEMOGLOBIN 9.2 GM/DL (13.0-17.0); LYMPH % 7.1 % (9.0-44.0); LYMPHOCYTE # 1.2 TH/MM3 (1.0-4.8); MEAN CELL VOLUME 91.6 FL (80.0-100.0); MEAN CORPUSCULAR HEMOGLOBIN 30.3 PG (27.0-34.0); MEAN CORPUSCULAR HGB CONC 33.1 % (32.0-36.0); MEAN PLATELET VOLUME 7.6 FL (7.0-11.0); MONO % 4.5 % (0.0-8.0); MONOCYTE # 0.7 TH/MM3 (0-0.9); NEUT % 85.5 % (16.0-70.0); PLATELET COUNT 280 TH/MM3 (150-450); RED BLOOD COUNT 3.03 MIL/MM3 (4.50-5.90); RED CELL DISTRIBUTION WIDTH 14.1 % (11.6-17.2); WHITE BLOOD COUNT 16.6 TH/MM3 (4.0-11.0)
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
--- NOTE | 2017-06-30 16:03 | PD.WCN.NOT ---
Wound Consult Description: Wound consult ordered by for sacrum Communicated with: Josefina Adam , Recommendation: 1)Please reposition patient every 2 hours for comfort and offloading. 2)Cleanse buttocks with warm soap and water,rinse and pat dry. 3) Apply skin prep to intact roofed bulla (blisters) BID 4) Apply Calazime cream to unroofed open Bulla (blisters) BID Additional Information: Patient was seen today by mortgage or loan underwriter and Josefina Adam for sacrum blister.Patient requires total assistance with repositioning to left side. Buttocks cleansed with normal saline to expose R buttocks Roofed and Unroofed Bulla (blisters).No drainage noted all areas blanchable.Scattered Bulla measure ~3.6cm x ~2.3cm scant fluid noted to intact blisters.Skin prep applied to intact bulla and Calazime applied to open bulla.Patient was repositioned to Right side for comfort. Sophia Pickett [facility] Jun 30, 2017 16:03
[2017-06-30] MEDS: CHLORHEXIDINE GLUCONATE 2 % 1 PACK (2 CLOTHS) TOP SCH (19:48)
[2017-07-01] VITALS (16 sets, daily range): BP systolic 94–105; BP diastolic 58–70; PULSE 73–89; RESP 22–25; TEMP 97.8–99.9; O2SAT 99–100
[2017-07-01] MEDS: HEPARIN SODIUM - SQ 10,000 UNITS/ML VIAL SQ SCH ×3 (03:14→20:00)
[2017-07-01 04:31] LABS: BASOPHIL # 0.1 TH/MM3 (0-0.2); BASOPHIL % 0.6 % (0.0-2.0); EOSINOPHIL # 0.4 TH/MM3 (0-0.4); EOSINOPHIL % 4.2 % (0.0-4.0); HEMATOCRIT 26.4 % (39.0-51.0); HEMOGLOBIN 8.7 GM/DL (13.0-17.0); MEAN CELL VOLUME 92.5 FL (80.0-100.0); MEAN CORPUSCULAR HEMOGLOBIN 30.5 PG (27.0-34.0); MEAN CORPUSCULAR HGB CONC 32.9 % (32.0-36.0); MEAN PLATELET VOLUME 8.2 FL (7.0-11.0); MONO % 9.1 % (0.0-8.0); NEUT % 76.1 % (16.0-70.0); PLATELET COUNT 235 TH/MM3 (150-450); RED BLOOD COUNT 2.85 MIL/MM3 (4.50-5.90); RED CELL DISTRIBUTION WIDTH 14.2 % (11.6-17.2); WHITE BLOOD COUNT 10.5 TH/MM3 (4.0-11.0)
[2017-07-01] MEDS: PIPERACIL-TAZO 3.375 GM PREMIX 50 ML IV SCH ×4 (04:48→23:37)
[2017-07-01 04:49] LABS: ALBUMIN 1.7 GM/DL (3.4-5.0); ALT (GPT) 27 U/L (12-78); AST (GOT) 95 U/L (15-37); BICARBONATE 24.1 MEQ/L (21.0-32.0); CALCIUM 8.2 MG/DL (8.5-10.1); CHLORIDE 102 MEQ/L (98-107); CREATININE 1.43 MG/DL (0.60-1.30); GLOMERULAR FILTRATION RATE 50 ML/MIN (>89); GLUCOSE,RANDOM 98 MG/DL (74-106); MAGNESIUM 2.3 MG/DL (1.5-2.5); SODIUM (NA) 135 MEQ/L (136-145)
[2017-07-01 04:52] LABS: ALKALINE PHOSPHATASE 136 U/L (45-117); TOTAL BILIRUBIN ADULT 0.8 MG/DL (0.2-1.0); TOTAL PROTEIN 7.3 GM/DL (6.4-8.2)
[2017-07-01 04:59] LABS: BLOOD UREA NITROGEN 41 MG/DL (7-18)
[2017-07-01] MEDS: FREE WATER G-TUBE SCH ×3 (05:53→17:07)
[2017-07-01] MEDS: INSULIN ASPART SUPPLEMENTAL SCALE SQ SCH ×3 (05:53→17:34)
[2017-07-01] MEDS: AMANTADINE HCL SOLN 100 MG/10 ML UDC PO SCH (06:02)
[2017-07-01] MEDS: CHLORHEXIDINE 0.12% (ORAL KIT) 15 ML CUP MT SCH ×2 (07:54→20:00)
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
[2017-07-01] MEDS: BENEPROTEIN POWDER 1 PACK G-TUBE SCH ×3 (09:00→17:07)
[2017-07-01] MEDS: BACITRACIN TOP OINT 15 GM TUBE TOPICAL SCH ×2 (09:00→21:00)
[2017-07-01] MEDS: MAGNESIUM HYDROXIDE SUSP 30 ML CUP PO SCH ×2 (09:00→21:00)
[2017-07-01] MEDS: LACTULOSE SYRUP 20 GM/30 ML CUP PO SCH (09:00)
[2017-07-01] MEDS: FAMOTIDINE 20 MG TAB NG SCH ×2 (09:16→21:00)
[2017-07-01] MEDS: THIAMINE INJ 100 MG in SODIUM CHLORIDE 0.9% INJ 100 ML IV SCH (09:16)
[2017-07-01] MEDS: DOCUSATE SODIUM 50 MG/SENNA 8.6 MG TAB PO SCH ×2 (09:16→21:00)
[2017-07-01] MEDS ORDERED: DEXTROSE 50% IN WATER 50 ML SYRINGE IV PUSH ONE (09:30)
[2017-07-01] MEDS ORDERED: INSULIN HUMAN REGULAR 1,000 UNITS/10 ML VIAL IV PUSH ONE (09:30)
[2017-07-01] MEDS: LEVOFLOXACIN 750 MG PREMIX INJ 150 ML IV SCH (10:34)
[2017-07-01] MEDS: RESP: ALBUTEROL 2.5 MG/IPRATROPIUM 0.5 MG NEB (PRN) NEB (13:07)
[2017-07-01 14:00] LABS: BICARBONATE 24.2 MEQ/L (21.0-32.0); CALCIUM 8.1 MG/DL (8.5-10.1); CREATININE 1.38 MG/DL (0.60-1.30)
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
[2017-07-02] VITALS (18 sets, daily range): BP systolic 89–125; BP diastolic 56–63; PULSE 67–86; RESP 20–27; TEMP 97.9–98.8; O2SAT 97–100
[2017-07-02] MEDS: HEPARIN SODIUM - SQ 10,000 UNITS/ML VIAL SQ SCH ×3 (03:43→20:31)
[2017-07-02] MEDS: SODIUM CHLORIDE 0.9% FLUSH 10 ML FLUSH IV FLUSH PRN (03:43)
[2017-07-02] MEDS: CHLORHEXIDINE GLUCONATE 2 % 1 PACK (2 CLOTHS) TOP SCH (04:00)
[2017-07-02 04:36] LABS: AUTOMATED NEUTROPHIL # 3.8 TH/MM3 (1.8-7.7); BASOPHIL % 0.5 % (0.0-2.0); EOSINOPHIL # 0.4 TH/MM3 (0-0.4); EOSINOPHIL % 5.8 % (0.0-4.0); HEMATOCRIT 24.9 % (39.0-51.0); HEMOGLOBIN 8.3 GM/DL (13.0-17.0); LYMPH % 25.4 % (9.0-44.0); LYMPHOCYTE # 1.7 TH/MM3 (1.0-4.8); MEAN CELL VOLUME 91.4 FL (80.0-100.0); MEAN CORPUSCULAR HEMOGLOBIN 30.5 PG (27.0-34.0); MEAN CORPUSCULAR HGB CONC 33.4 % (32.0-36.0); MEAN PLATELET VOLUME 8.2 FL (7.0-11.0); MONO % 11.2 % (0.0-8.0); MONOCYTE # 0.7 TH/MM3 (0-0.9); NEUT % 57.1 % (16.0-70.0); PLATELET COUNT 214 TH/MM3 (150-450); RED BLOOD COUNT 2.73 MIL/MM3 (4.50-5.90); RED CELL DISTRIBUTION WIDTH 14.4 % (11.6-17.2); WHITE BLOOD COUNT 6.6 TH/MM3 (4.0-11.0)
[2017-07-02 05:16] LABS: ALBUMIN 1.8 GM/DL (3.4-5.0); ALT (GPT) 24 U/L (12-78); AST (GOT) 55 U/L (15-37); BICARBONATE 28.3 MEQ/L (21.0-32.0); BLOOD UREA NITROGEN 44 MG/DL (7-18); CALCIUM 8.7 MG/DL (8.5-10.1); CHLORIDE 103 MEQ/L (98-107); CREATININE 1.25 MG/DL (0.60-1.30); GLOMERULAR FILTRATION RATE 58 ML/MIN (>89); GLUCOSE,RANDOM 84 MG/DL (74-106); MAGNESIUM 2.3 MG/DL (1.5-2.5); SODIUM (NA) 140 MEQ/L (136-145)
[2017-07-02 05:18] LABS: ALKALINE PHOSPHATASE 119 U/L (45-117); TOTAL BILIRUBIN ADULT 0.5 MG/DL (0.2-1.0)
[2017-07-02] MEDS: FREE WATER G-TUBE SCH ×4 (06:00→17:34)
[2017-07-02] MEDS: INSULIN ASPART SUPPLEMENTAL SCALE SQ SCH ×4 (06:00→18:00)
[2017-07-02] MEDS: PIPERACIL-TAZO 3.375 GM PREMIX 50 ML IV SCH ×4 (06:11→23:00)
[2017-07-02] MEDS: AMANTADINE HCL SOLN 100 MG/10 ML UDC PO SCH ×2 (07:00→09:06)
[2017-07-02] MEDS: CHLORHEXIDINE 0.12% (ORAL KIT) 15 ML CUP MT SCH ×2 (08:00→20:31)
[2017-07-02] MEDS: LACTULOSE SYRUP 20 GM/30 ML CUP PO SCH (09:00)
[2017-07-02] MEDS: MAGNESIUM HYDROXIDE SUSP 30 ML CUP PO SCH ×2 (09:00→20:31)
[2017-07-02] MEDS: BENEPROTEIN POWDER 1 PACK G-TUBE SCH ×3 (09:00→17:34)
[2017-07-02] MEDS: DOCUSATE SODIUM 50 MG/SENNA 8.6 MG TAB PO SCH ×2 (09:00→20:31)
[2017-07-02] MEDS: BACITRACIN TOP OINT 15 GM TUBE TOPICAL SCH ×2 (09:00→20:32)
[2017-07-02] MEDS: FAMOTIDINE 20 MG TAB NG SCH ×2 (09:06→20:31)
[2017-07-02] MEDS: THIAMINE INJ 100 MG in SODIUM CHLORIDE 0.9% INJ 100 ML IV SCH (09:06)
[2017-07-02] MEDS ORDERED: ALBUMIN 5% INJ 500 ML IV ONE (10:00)
[2017-07-02] MEDS: LEVOFLOXACIN 750 MG PREMIX INJ 150 ML IV SCH (10:58)
[2017-07-02] MEDS: RESP: ALBUTEROL 2.5 MG/IPRATROPIUM 0.5 MG NEB (PRN) NEB ×2 (11:55→19:27)
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
[2017-07-03] VITALS (19 sets, daily range): BP systolic 103–122; BP diastolic 56–73; PULSE 72–80; RESP 21–26; TEMP 97.8–99.2; O2SAT 99–100
[2017-07-03] MEDS: HEPARIN SODIUM - SQ 10,000 UNITS/ML VIAL SQ SCH ×3 (03:42→19:51)
[2017-07-03] MEDS: PIPERACIL-TAZO 3.375 GM PREMIX 50 ML IV SCH ×4 (03:43→23:10)
[2017-07-03] MEDS: CHLORHEXIDINE GLUCONATE 2 % 1 PACK (2 CLOTHS) TOP SCH (03:43)
[2017-07-03 04:17] LABS: AUTOMATED NEUTROPHIL # 3.2 TH/MM3 (1.8-7.7); BASOPHIL # 0.1 TH/MM3 (0-0.2); BASOPHIL % 1.4 % (0.0-2.0); EOSINOPHIL # 0.4 TH/MM3 (0-0.4); EOSINOPHIL % 6.5 % (0.0-4.0); HEMATOCRIT 25.4 % (39.0-51.0); HEMOGLOBIN 8.8 GM/DL (13.0-17.0); LYMPH % 29.2 % (9.0-44.0); LYMPHOCYTE # 1.7 TH/MM3 (1.0-4.8); MEAN CORPUSCULAR HEMOGLOBIN 31.4 PG (27.0-34.0); MEAN CORPUSCULAR HGB CONC 34.5 % (32.0-36.0); MEAN PLATELET VOLUME 8.3 FL (7.0-11.0); MONO % 7.7 % (0.0-8.0); MONOCYTE # 0.4 TH/MM3 (0-0.9); NEUT % 55.2 % (16.0-70.0); PLATELET COUNT 202 TH/MM3 (150-450); RED BLOOD COUNT 2.79 MIL/MM3 (4.50-5.90); RED CELL DISTRIBUTION WIDTH 14.4 % (11.6-17.2)
[2017-07-03 04:18] LABS: WHITE BLOOD COUNT 5.7 TH/MM3 (4.0-11.0)
[2017-07-03 04:29] LABS: ALBUMIN 2.1 GM/DL (3.4-5.0); ALT (GPT) 20 U/L (12-78); AST (GOT) 50 U/L (15-37); BICARBONATE 27.4 MEQ/L (21.0-32.0); CALCIUM 8.5 MG/DL (8.5-10.1); CHLORIDE 105 MEQ/L (98-107); CREATININE 1.24 MG/DL (0.60-1.30); GLOMERULAR FILTRATION RATE 59 ML/MIN (>89); GLUCOSE,RANDOM 97 MG/DL (74-106); MAGNESIUM 2.1 MG/DL (1.5-2.5); SODIUM (NA) 141 MEQ/L (136-145)
[2017-07-03 04:31] LABS: ALKALINE PHOSPHATASE 123 U/L (45-117); BLOOD UREA NITROGEN 40 MG/DL (7-18); TOTAL BILIRUBIN ADULT 0.4 MG/DL (0.2-1.0)
[2017-07-03 05:07] LABS: BASOPHILS 1 % (0-2); MONOCYTES 10 % (0-8); MYELOCYTES 1 % (0-0); NEUTROPHIL # MANUAL DIFF 2.6 TH/MM3 (1.8-7.7); POLYS (SEG NEUTROPHILS) 45 % (16-70)
[2017-07-03 05:08] LABS: LYMPHOCYTES 36 % (9-44)
[2017-07-03] MEDS: FREE WATER G-TUBE SCH ×4 (05:12→18:45)
[2017-07-03] MEDS: INSULIN ASPART SUPPLEMENTAL SCALE SQ SCH ×4 (05:12→18:00)
[2017-07-03] MEDS: AMANTADINE HCL SOLN 100 MG/10 ML UDC PO SCH (05:38)
[2017-07-03] MEDS: MAGNESIUM HYDROXIDE SUSP 30 ML CUP PO SCH ×2 (09:00→21:00)
[2017-07-03] MEDS: LACTULOSE SYRUP 20 GM/30 ML CUP PO SCH (09:00)
[2017-07-03] MEDS: FAMOTIDINE 20 MG TAB NG SCH ×2 (09:22→20:26)
[2017-07-03] MEDS: THIAMINE INJ 100 MG in SODIUM CHLORIDE 0.9% INJ 100 ML IV SCH (09:22)
[2017-07-03] MEDS: DOCUSATE SODIUM 50 MG/SENNA 8.6 MG TAB PO SCH ×2 (09:22→20:26)
[2017-07-03] MEDS: LEVOFLOXACIN 750 MG PREMIX INJ 150 ML IV SCH (09:23)
[2017-07-03] MEDS: BENEPROTEIN POWDER 1 PACK G-TUBE SCH ×3 (09:24→18:45)
[2017-07-03] MEDS: BACITRACIN TOP OINT 15 GM TUBE TOPICAL SCH ×2 (09:24→20:29)
[2017-07-03] MEDS: CHLORHEXIDINE 0.12% (ORAL KIT) 15 ML CUP MT SCH ×2 (09:25→19:52)
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
[2017-07-03] MEDS: RESP: ALBUTEROL 2.5 MG/IPRATROPIUM 0.5 MG NEB (PRN) NEB (19:37)
[2017-07-04] VITALS (19 sets, daily range): BP systolic 101–138; BP diastolic 62–72; PULSE 70–81; RESP 18–26; TEMP 97.3–99; O2SAT 98–100
[2017-07-04] MEDS: HEPARIN SODIUM - SQ 10,000 UNITS/ML VIAL SQ SCH ×3 (03:32→20:36)
[2017-07-04] MEDS: CHLORHEXIDINE GLUCONATE 2 % 1 PACK (2 CLOTHS) TOP SCH (04:00)
[2017-07-04] MEDS: RESP: ALBUTEROL 2.5 MG/IPRATROPIUM 0.5 MG NEB (PRN) NEB ×2 (04:03→08:23)
[2017-07-04] MEDS: PIPERACIL-TAZO 3.375 GM PREMIX 50 ML IV SCH ×4 (04:53→22:34)
[2017-07-04] MEDS: INSULIN ASPART SUPPLEMENTAL SCALE SQ SCH ×4 (05:25→18:00)
[2017-07-04] MEDS: FREE WATER G-TUBE SCH ×4 (05:26→17:35)
[2017-07-04 05:46] LABS: AST (GOT) 56 U/L (15-37); BICARBONATE 27.4 MEQ/L (21.0-32.0); BLOOD UREA NITROGEN 37 MG/DL (7-18); CALCIUM 8.3 MG/DL (8.5-10.1); CHLORIDE 103 MEQ/L (98-107); GLOMERULAR FILTRATION RATE 61 ML/MIN (>89); GLUCOSE,RANDOM 100 MG/DL (74-106); MAGNESIUM 2.1 MG/DL (1.5-2.5); SODIUM (NA) 138 MEQ/L (136-145)
[2017-07-04 05:52] LABS: ALKALINE PHOSPHATASE 123 U/L (45-117); ALT (GPT) 21 U/L (12-78); TOTAL BILIRUBIN ADULT 0.4 MG/DL (0.2-1.0)
[2017-07-04] MEDS: AMANTADINE HCL SOLN 100 MG/10 ML UDC PO SCH (06:49)
[2017-07-04] MEDS: THIAMINE INJ 100 MG in SODIUM CHLORIDE 0.9% INJ 100 ML IV SCH (07:45)
[2017-07-04] MEDS: FAMOTIDINE 20 MG TAB NG SCH ×2 (07:45→20:36)
[2017-07-04] MEDS: BENEPROTEIN POWDER 1 PACK G-TUBE SCH ×3 (07:45→17:34)
[2017-07-04] MEDS: DOCUSATE SODIUM 50 MG/SENNA 8.6 MG TAB PO SCH ×2 (07:46→20:36)
[2017-07-04] MEDS: BACITRACIN TOP OINT 15 GM TUBE TOPICAL SCH ×2 (07:46→20:37)
[2017-07-04] MEDS: LACTULOSE SYRUP 20 GM/30 ML CUP PO SCH (07:46)
[2017-07-04] MEDS: MAGNESIUM HYDROXIDE SUSP 30 ML CUP PO SCH ×2 (07:46→20:36)
[2017-07-04] MEDS: CHLORHEXIDINE 0.12% (ORAL KIT) 15 ML CUP MT SCH ×2 (07:46→20:37)
[2017-07-04 10:19] LABS: AUTOMATED NEUTROPHIL # 4.3 TH/MM3 (1.8-7.7); BASOPHIL % 0.5 % (0.0-2.0); EOSINOPHIL # 0.6 TH/MM3 (0-0.4); EOSINOPHIL % 6.7 % (0.0-4.0); HEMATOCRIT 26.4 % (39.0-51.0); HEMOGLOBIN 8.9 GM/DL (13.0-17.0); LYMPH % 31.2 % (9.0-44.0); LYMPHOCYTE # 2.6 TH/MM3 (1.0-4.8); MEAN CELL VOLUME 91.2 FL (80.0-100.0); MEAN CORPUSCULAR HEMOGLOBIN 30.8 PG (27.0-34.0); MEAN CORPUSCULAR HGB CONC 33.7 % (32.0-36.0); MEAN PLATELET VOLUME 7.7 FL (7.0-11.0); MONO % 10.5 % (0.0-8.0); MONOCYTE # 0.9 TH/MM3 (0-0.9); NEUT % 51.1 % (16.0-70.0); PLATELET COUNT 188 TH/MM3 (150-450); RED BLOOD COUNT 2.89 MIL/MM3 (4.50-5.90); RED CELL DISTRIBUTION WIDTH 14.5 % (11.6-17.2); WHITE BLOOD COUNT 8.3 TH/MM3 (4.0-11.0)
[2017-07-04] MEDS: LEVOFLOXACIN 750 MG PREMIX INJ 150 ML IV SCH (10:31)
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
[2017-07-04] MEDS: SODIUM CHLORIDE 0.9% FLUSH 10 ML FLUSH IV FLUSH PRN (20:35)
[2017-07-05] VITALS (18 sets, daily range): BP systolic 107–125; BP diastolic 63–74; PULSE 72–85; RESP 17–24; TEMP 97.7–99.5; O2SAT 99–100
[2017-07-05] MEDS: RESP: ALBUTEROL 2.5 MG/IPRATROPIUM 0.5 MG NEB (PRN) NEB ×2 (03:41→08:24)
[2017-07-05] MEDS: HEPARIN SODIUM - SQ 10,000 UNITS/ML VIAL SQ SCH ×3 (03:45→20:02)
[2017-07-05] MEDS: CHLORHEXIDINE GLUCONATE 2 % 1 PACK (2 CLOTHS) TOP SCH (03:45)
[2017-07-05] MEDS: PIPERACIL-TAZO 3.375 GM PREMIX 50 ML IV SCH ×4 (04:28→23:13)
[2017-07-05 05:14] LABS: AUTOMATED NEUTROPHIL # 3.7 TH/MM3 (1.8-7.7); BASOPHIL # 0.1 TH/MM3 (0-0.2); BASOPHIL % 0.7 % (0.0-2.0); EOSINOPHIL # 0.7 TH/MM3 (0-0.4); EOSINOPHIL % 8.7 % (0.0-4.0); HEMATOCRIT 27.7 % (39.0-51.0); HEMOGLOBIN 9.2 GM/DL (13.0-17.0); LYMPH % 34.5 % (9.0-44.0); LYMPHOCYTE # 2.6 TH/MM3 (1.0-4.8); MEAN CELL VOLUME 91.4 FL (80.0-100.0); MEAN CORPUSCULAR HEMOGLOBIN 30.4 PG (27.0-34.0); MEAN CORPUSCULAR HGB CONC 33.3 % (32.0-36.0); MEAN PLATELET VOLUME 7.6 FL (7.0-11.0); MONOCYTE # 0.6 TH/MM3 (0-0.9); NEUT % 48.1 % (16.0-70.0); PLATELET COUNT 195 TH/MM3 (150-450); RED BLOOD COUNT 3.03 MIL/MM3 (4.50-5.90); RED CELL DISTRIBUTION WIDTH 14.1 % (11.6-17.2); WHITE BLOOD COUNT 7.6 TH/MM3 (4.0-11.0)
[2017-07-05 05:23] LABS: AST (GOT) 54 U/L (15-37); BICARBONATE 28.4 MEQ/L (21.0-32.0); BLOOD UREA NITROGEN 35 MG/DL (7-18); CALCIUM 8.7 MG/DL (8.5-10.1); CHLORIDE 101 MEQ/L (98-107); CREATININE 1.16 MG/DL (0.60-1.30); GLOMERULAR FILTRATION RATE 63 ML/MIN (>89); GLUCOSE,RANDOM 101 MG/DL (74-106); SODIUM (NA) 136 MEQ/L (136-145)
[2017-07-05 05:28] LABS: ALKALINE PHOSPHATASE 129 U/L (45-117); ALT (GPT) 22 U/L (12-78); TOTAL BILIRUBIN ADULT 0.4 MG/DL (0.2-1.0); TOTAL PROTEIN 7.2 GM/DL (6.4-8.2)
[2017-07-05] MEDS: FREE WATER G-TUBE SCH ×4 (05:37→17:32)
[2017-07-05] MEDS: INSULIN ASPART SUPPLEMENTAL SCALE SQ SCH ×4 (05:37→17:32)
[2017-07-05] MEDS: AMANTADINE HCL SOLN 100 MG/10 ML UDC PO SCH (05:53)
[2017-07-05 07:05] LABS: BANDS 4 % (0-6); LYMPHOCYTES 24 % (9-44); METAMYELOCYTES 1 % (0-1); MONOCYTES 8 % (0-8); NEUTROPHIL # MANUAL DIFF 4.7 TH/MM3 (1.8-7.7); POLYS (SEG NEUTROPHILS) 57 % (16-70)
[2017-07-05] MEDS: LACTULOSE SYRUP 20 GM/30 ML CUP PO SCH (09:00)
[2017-07-05] MEDS: MAGNESIUM HYDROXIDE SUSP 30 ML CUP PO SCH ×2 (09:00→21:00)
[2017-07-05] MEDS: BENEPROTEIN POWDER 1 PACK G-TUBE SCH ×3 (09:00→17:32)
[2017-07-05] MEDS: BACITRACIN TOP OINT 15 GM TUBE TOPICAL SCH ×2 (09:00→21:00)
[2017-07-05] MEDS: CHLORHEXIDINE 0.12% (ORAL KIT) 15 ML CUP MT SCH ×2 (09:01→22:24)
[2017-07-05] MEDS: DOCUSATE SODIUM 50 MG/SENNA 8.6 MG TAB PO SCH ×2 (09:01→20:52)
[2017-07-05] MEDS: FAMOTIDINE 20 MG TAB NG SCH ×2 (09:01→20:52)
[2017-07-05] MEDS: THIAMINE INJ 100 MG in SODIUM CHLORIDE 0.9% INJ 100 ML IV SCH (09:02)
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
[2017-07-05] MEDS: LEVOFLOXACIN 750 MG PREMIX INJ 150 ML IV SCH (11:11)
[2017-07-06] VITALS (17 sets, daily range): BP systolic 121–148; BP diastolic 65–77; PULSE 15–84; RESP 18–23; TEMP 98.7–99.5; O2SAT 100
[2017-07-06] MEDS: CHLORHEXIDINE GLUCONATE 2 % 1 PACK (2 CLOTHS) TOP SCH ×2 (04:00→19:45)
[2017-07-06] MEDS: PIPERACIL-TAZO 3.375 GM PREMIX 50 ML IV SCH (04:16)
[2017-07-06] MEDS: HEPARIN SODIUM - SQ 10,000 UNITS/ML VIAL SQ SCH ×3 (04:17→22:12)
[2017-07-06 04:28] LABS: AUTOMATED NEUTROPHIL # 7.1 TH/MM3 (1.8-7.7); BASOPHIL # 0.1 TH/MM3 (0-0.2); BASOPHIL % 0.5 % (0.0-2.0); EOSINOPHIL # 0.8 TH/MM3 (0-0.4); EOSINOPHIL % 7.5 % (0.0-4.0); HEMATOCRIT 29.3 % (39.0-51.0); HEMOGLOBIN 9.8 GM/DL (13.0-17.0); LYMPH % 20.5 % (9.0-44.0); LYMPHOCYTE # 2.3 TH/MM3 (1.0-4.8); MEAN CELL VOLUME 91.9 FL (80.0-100.0); MEAN CORPUSCULAR HEMOGLOBIN 30.6 PG (27.0-34.0); MEAN CORPUSCULAR HGB CONC 33.3 % (32.0-36.0); MEAN PLATELET VOLUME 7.4 FL (7.0-11.0); MONO % 7.4 % (0.0-8.0); MONOCYTE # 0.8 TH/MM3 (0-0.9); NEUT % 64.1 % (16.0-70.0); PLATELET COUNT 208 TH/MM3 (150-450); RED BLOOD COUNT 3.19 MIL/MM3 (4.50-5.90); RED CELL DISTRIBUTION WIDTH 14.6 % (11.6-17.2)
[2017-07-06 04:48] LABS: ALBUMIN 2.1 GM/DL (3.4-5.0); AST (GOT) 55 U/L (15-37); BICARBONATE 28.4 MEQ/L (21.0-32.0); BLOOD UREA NITROGEN 36 MG/DL (7-18); CALCIUM 8.5 MG/DL (8.5-10.1); CHLORIDE 100 MEQ/L (98-107); CREATININE 1.27 MG/DL (0.60-1.30); GLOMERULAR FILTRATION RATE 57 ML/MIN (>89); GLUCOSE,RANDOM 103 MG/DL (74-106); SODIUM (NA) 133 MEQ/L (136-145)
[2017-07-06 04:50] LABS: ALT (GPT) 25 U/L (12-78)
[2017-07-06 04:52] LABS: ALKALINE PHOSPHATASE 142 U/L (45-117); TOTAL BILIRUBIN ADULT 0.4 MG/DL (0.2-1.0); TOTAL PROTEIN 7.6 GM/DL (6.4-8.2)
--- NOTE | 2017-07-06 05:45 | RADRPT ---
EXAM DATE/TIME: 07/06/2017 04:46 [facility] COMPARISON: CHEST SINGLE AP, June 30, 2017, 11:17. INDICATIONS : Shortness of breath. MEDICAL HISTORY : None. SURGICAL HISTORY : None. ENCOUNTER: Subsequent ACUITY: 3 weeks PAIN SCORE: Non-responsive. LOCATION: Bilateral chest FINDINGS: A single portable frontal view of the chest shows near complete resolution of the left basilar consol idation. Right basilar consolidation is unchanged. No effusions. Heart is normal in size. Tracheostom y tube. A degenerative spine. CONCLUSION: Resolution of left basilar consolidation. Right basilar consolidation persists. Obed Squires Jr., MD on July 06, 2017 at 5:43 Board Certified Radiologist. This report was verified electronically.
[2017-07-06] MEDS: FREE WATER G-TUBE SCH ×2 (06:00)
[2017-07-06] MEDS: INSULIN ASPART SUPPLEMENTAL SCALE SQ SCH ×4 (06:00→18:14)
[2017-07-06] MEDS: AMANTADINE HCL SOLN 100 MG/10 ML UDC PO SCH (06:02)
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
[2017-07-06] MEDS: CHLORHEXIDINE 0.12% (ORAL KIT) 15 ML CUP MT SCH ×2 (08:04→20:00)
[2017-07-06] MEDS: BENEPROTEIN POWDER 1 PACK G-TUBE SCH ×3 (08:18→18:14)
[2017-07-06] MEDS: FAMOTIDINE 20 MG TAB NG SCH ×2 (08:18→22:12)
[2017-07-06] MEDS: DOCUSATE SODIUM 50 MG/SENNA 8.6 MG TAB PO SCH ×2 (08:18→22:12)
[2017-07-06] MEDS: MAGNESIUM HYDROXIDE SUSP 30 ML CUP PO SCH ×2 (08:18→19:44)
[2017-07-06] MEDS: BACITRACIN TOP OINT 15 GM TUBE TOPICAL SCH ×2 (08:18→21:00)
[2017-07-06] MEDS: LACTULOSE SYRUP 20 GM/30 ML CUP PO SCH (08:18)
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
[2017-07-07] VITALS (13 sets, daily range): BP systolic 105–124; BP diastolic 64–77; PULSE 76–89; RESP 21–28; TEMP 97.7–99.3; O2SAT 96–100
[2017-07-07] MEDS: HEPARIN SODIUM - SQ 10,000 UNITS/ML VIAL SQ SCH ×3 (04:38→20:53)
[2017-07-07 05:14] LABS: AUTOMATED NEUTROPHIL # 9.3 TH/MM3 (1.8-7.7); BASOPHIL # 0.1 TH/MM3 (0-0.2); BASOPHIL % 0.4 % (0.0-2.0); EOSINOPHIL # 0.9 TH/MM3 (0-0.4); EOSINOPHIL % 6.1 % (0.0-4.0); HEMATOCRIT 31.4 % (39.0-51.0); HEMOGLOBIN 10.5 GM/DL (13.0-17.0); LYMPH % 18.5 % (9.0-44.0); LYMPHOCYTE # 2.7 TH/MM3 (1.0-4.8); MEAN CELL VOLUME 91.9 FL (80.0-100.0); MEAN CORPUSCULAR HEMOGLOBIN 30.6 PG (27.0-34.0); MEAN CORPUSCULAR HGB CONC 33.3 % (32.0-36.0); MEAN PLATELET VOLUME 7.9 FL (7.0-11.0); MONO % 10.2 % (0.0-8.0); MONOCYTE # 1.5 TH/MM3 (0-0.9); NEUT % 64.8 % (16.0-70.0); PLATELET COUNT 236 TH/MM3 (150-450); RED BLOOD COUNT 3.42 MIL/MM3 (4.50-5.90); RED CELL DISTRIBUTION WIDTH 14.9 % (11.6-17.2); WHITE BLOOD COUNT 14.4 TH/MM3 (4.0-11.0)
[2017-07-07 05:23] LABS: ALKALINE PHOSPHATASE 144 U/L (45-117); TOTAL BILIRUBIN ADULT 0.4 MG/DL (0.2-1.0); TOTAL PROTEIN 7.9 GM/DL (6.4-8.2)
[2017-07-07 05:25] LABS: ALBUMIN 2.3 GM/DL (3.4-5.0); ALT (GPT) 23 U/L (12-78); AST (GOT) 55 U/L (15-37); BICARBONATE 25.8 MEQ/L (21.0-32.0); BLOOD UREA NITROGEN 37 MG/DL (7-18); CALCIUM 9.1 MG/DL (8.5-10.1); CHLORIDE 101 MEQ/L (98-107); GLOMERULAR FILTRATION RATE 67 ML/MIN (>89); GLUCOSE,RANDOM 113 MG/DL (74-106); SODIUM (NA) 136 MEQ/L (136-145)
[2017-07-07] MEDS: INSULIN ASPART SUPPLEMENTAL SCALE SQ SCH ×2 (06:00)
[2017-07-07] MEDS: CHLORHEXIDINE 0.12% (ORAL KIT) 15 ML CUP MT SCH ×2 (08:00→20:53)
[2017-07-07] MEDS: DOCUSATE SODIUM 50 MG/SENNA 8.6 MG TAB PO SCH ×2 (09:00→20:53)
[2017-07-07] MEDS: AMANTADINE HCL SOLN 100 MG/10 ML UDC PO SCH (09:00)
[2017-07-07] MEDS: FAMOTIDINE 20 MG TAB NG SCH ×2 (09:00→20:53)
[2017-07-07] MEDS: BACITRACIN TOP OINT 15 GM TUBE TOPICAL SCH ×2 (09:00→20:54)
[2017-07-07] MEDS: BENEPROTEIN POWDER 1 PACK G-TUBE SCH ×3 (09:00→16:47)
[2017-07-07] MEDS: LACTULOSE SYRUP 20 GM/30 ML CUP PO SCH (09:00)
[2017-07-07] MEDS: MAGNESIUM HYDROXIDE SUSP 30 ML CUP PO SCH ×2 (09:00→20:53)
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
[2017-07-07] MEDS ORDERED: ACETAMINOPHEN/HYDROcodone 325 MG/5 MG TAB PO PRN (18:00)
[2017-07-07] MEDS: CHLORHEXIDINE GLUCONATE 2 % 1 PACK (2 CLOTHS) TOP SCH (20:54)
[2017-07-08] VITALS (11 sets, daily range): BP systolic 108–140; BP diastolic 63–72; PULSE 80–90; RESP 20–23; TEMP 97.9–99.1; O2SAT 98–100
[2017-07-08] MEDS: HEPARIN SODIUM - SQ 10,000 UNITS/ML VIAL SQ SCH ×3 (03:54→20:39)
[2017-07-08 04:35] LABS: AUTOMATED NEUTROPHIL # 6.1 TH/MM3 (1.8-7.7); BASOPHIL # 0.1 TH/MM3 (0-0.2); BASOPHIL % 0.7 % (0.0-2.0); EOSINOPHIL # 0.8 TH/MM3 (0-0.4); HEMATOCRIT 30.1 % (39.0-51.0); HEMOGLOBIN 10.2 GM/DL (13.0-17.0); LYMPH % 23.7 % (9.0-44.0); LYMPHOCYTE # 2.5 TH/MM3 (1.0-4.8); MEAN CELL VOLUME 90.9 FL (80.0-100.0); MEAN CORPUSCULAR HEMOGLOBIN 30.7 PG (27.0-34.0); MEAN CORPUSCULAR HGB CONC 33.8 % (32.0-36.0); MEAN PLATELET VOLUME 7.6 FL (7.0-11.0); MONO % 8.8 % (0.0-8.0); MONOCYTE # 0.9 TH/MM3 (0-0.9); NEUT % 58.8 % (16.0-70.0); PLATELET COUNT 240 TH/MM3 (150-450); RED BLOOD COUNT 3.31 MIL/MM3 (4.50-5.90); WHITE BLOOD COUNT 10.4 TH/MM3 (4.0-11.0)
[2017-07-08 07:06] LABS: CORRECTED NUCLEATED RBC 1 /100 WBC (0-0); LYMPHOCYTES 20 % (9-44); METAMYELOCYTES 1 % (0-1); MONOCYTES 8 % (0-8); MYELOCYTES 3 % (0-0); NEUTROPHIL # MANUAL DIFF 6.8 TH/MM3 (1.8-7.7); NUCLEATED RED BLOOD CELL 1 (0-0); POLYS (SEG NEUTROPHILS) 61 % (16-70)
[2017-07-08] MEDS: AMANTADINE HCL SOLN 100 MG/10 ML UDC PO SCH (07:33)
[2017-07-08] MEDS: CHLORHEXIDINE 0.12% (ORAL KIT) 15 ML CUP MT SCH ×2 (08:00→20:39)
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
[2017-07-08] MEDS: BENEPROTEIN POWDER 1 PACK G-TUBE SCH ×3 (08:17→17:44)
[2017-07-08] MEDS: LACTULOSE SYRUP 20 GM/30 ML CUP PO SCH (08:17)
[2017-07-08] MEDS: MAGNESIUM HYDROXIDE SUSP 30 ML CUP PO SCH (08:17)
[2017-07-08] MEDS: DOCUSATE SODIUM 50 MG/SENNA 8.6 MG TAB PO SCH (08:17)
[2017-07-08] MEDS: BACITRACIN TOP OINT 15 GM TUBE TOPICAL SCH ×2 (08:18→20:39)
[2017-07-08] MEDS: FAMOTIDINE 20 MG TAB NG SCH ×2 (08:23→20:39)
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
[2017-07-08] MEDS: CHLORHEXIDINE GLUCONATE 2 % 1 PACK (2 CLOTHS) TOP SCH (20:39)
[2017-07-09] VITALS (11 sets, daily range): BP systolic 95–132; BP diastolic 57–79; PULSE 82–95; RESP 21–33; TEMP 98.5–99.4; O2SAT 97–100
[2017-07-09] MEDS: HEPARIN SODIUM - SQ 10,000 UNITS/ML VIAL SQ SCH ×3 (04:54→20:52)
[2017-07-09] MEDS: AMANTADINE HCL SOLN 100 MG/10 ML UDC PO SCH (06:24)
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
[2017-07-09] MEDS: CHLORHEXIDINE 0.12% (ORAL KIT) 15 ML CUP MT SCH (08:00)
[2017-07-09] MEDS: BENEPROTEIN POWDER 1 PACK G-TUBE SCH ×3 (08:52→18:00)
[2017-07-09] MEDS: BACITRACIN TOP OINT 15 GM TUBE TOPICAL SCH ×2 (08:52→20:52)
[2017-07-09] MEDS: FAMOTIDINE 20 MG TAB NG SCH ×2 (08:52→20:52)
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
[2017-07-09] MEDS: CHLORHEXIDINE GLUCONATE 2 % 1 PACK (2 CLOTHS) TOP SCH (20:39)
[2017-07-10] VITALS (8 sets, daily range): BP systolic 94–116; BP diastolic 59–75; PULSE 80–99; RESP 9–29; TEMP 98–100.3; O2SAT 97–99
[2017-07-10] MEDS: HEPARIN SODIUM - SQ 10,000 UNITS/ML VIAL SQ SCH ×3 (04:19→20:19)
[2017-07-10 04:45] LABS: AUTOMATED NEUTROPHIL # 5.5 TH/MM3 (1.8-7.7); BASOPHIL # 0.1 TH/MM3 (0-0.2); BASOPHIL % 0.6 % (0.0-2.0); EOSINOPHIL # 0.8 TH/MM3 (0-0.4); EOSINOPHIL % 7.5 % (0.0-4.0); HEMATOCRIT 30.9 % (39.0-51.0); HEMOGLOBIN 10.2 GM/DL (13.0-17.0); LYMPH % 28.9 % (9.0-44.0); MEAN CELL VOLUME 91.5 FL (80.0-100.0); MEAN CORPUSCULAR HEMOGLOBIN 30.2 PG (27.0-34.0); MEAN PLATELET VOLUME 7.5 FL (7.0-11.0); MONO % 9.4 % (0.0-8.0); NEUT % 53.6 % (16.0-70.0); PLATELET COUNT 256 TH/MM3 (150-450); RED BLOOD COUNT 3.38 MIL/MM3 (4.50-5.90); RED CELL DISTRIBUTION WIDTH 14.9 % (11.6-17.2); WHITE BLOOD COUNT 10.3 TH/MM3 (4.0-11.0)
[2017-07-10 05:29] LABS: BICARBONATE 29.5 MEQ/L (21.0-32.0); CALCIUM 9.1 MG/DL (8.5-10.1); CREATININE 1.49 MG/DL (0.60-1.30)
[2017-07-10] MEDS: AMANTADINE HCL SOLN 100 MG/10 ML UDC PO SCH (05:41)
[2017-07-10] MEDS: FAMOTIDINE 20 MG TAB NG SCH ×2 (08:16→20:18)
[2017-07-10] MEDS: BACITRACIN TOP OINT 15 GM TUBE TOPICAL SCH ×2 (08:16→20:19)
[2017-07-10] MEDS: BENEPROTEIN POWDER 1 PACK G-TUBE SCH ×3 (08:16→17:41)
[2017-07-10] MEDS: CHLORHEXIDINE GLUCONATE 0.12% 15 ML CUP SWISH-SPIT SCH ×2 (08:16→20:19)
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
[2017-07-10] MEDS: CHLORHEXIDINE GLUCONATE 2 % 1 PACK (2 CLOTHS) TOP SCH (19:26)
[2017-07-11] VITALS (8 sets, daily range): BP systolic 105–133; BP diastolic 61–77; PULSE 50–97; RESP 15–24; TEMP 95.4–99.5; O2SAT 95–98
[2017-07-11] MEDS: HEPARIN SODIUM - SQ 10,000 UNITS/ML VIAL SQ SCH ×3 (04:59→21:35)
[2017-07-11] MEDS: AMANTADINE HCL SOLN 100 MG/10 ML UDC PO SCH ×2 (06:24→12:49)
[2017-07-11] MEDS: BENEPROTEIN POWDER 1 PACK G-TUBE SCH ×3 (07:30→18:00)
[2017-07-11] MEDS: CHLORHEXIDINE GLUCONATE 0.12% 15 ML CUP SWISH-SPIT SCH ×2 (07:31→21:35)
[2017-07-11] MEDS: BACITRACIN TOP OINT 15 GM TUBE TOPICAL SCH ×2 (07:31→21:36)
[2017-07-11] MEDS: FAMOTIDINE 20 MG TAB NG SCH ×2 (07:46→21:36)
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
[2017-07-11] MEDS: SODIUM CHLORIDE 0.9% FLUSH 10 ML FLUSH IV FLUSH PRN (21:36)
[2017-07-12] VITALS (7 sets, daily range): BP systolic 106–127; BP diastolic 65–76; PULSE 88–114; RESP 15–22; TEMP 95.9–101; O2SAT 95–97
[2017-07-12] MEDS: CHLORHEXIDINE GLUCONATE 2 % 1 PACK (2 CLOTHS) TOP SCH (04:00)
[2017-07-12] MEDS: AMANTADINE HCL SOLN 100 MG/10 ML UDC PO SCH ×2 (06:25→11:28)
[2017-07-12] MEDS: HEPARIN SODIUM - SQ 10,000 UNITS/ML VIAL SQ SCH ×3 (06:25→20:29)
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
[2017-07-12] MEDS: CHLORHEXIDINE GLUCONATE 0.12% 15 ML CUP SWISH-SPIT SCH ×2 (08:31→20:30)
[2017-07-12] MEDS: BENEPROTEIN POWDER 1 PACK G-TUBE SCH ×3 (08:44→16:18)
[2017-07-12] MEDS: FAMOTIDINE 20 MG TAB NG SCH ×2 (08:44→20:30)
[2017-07-12] MEDS: BACITRACIN TOP OINT 15 GM TUBE TOPICAL SCH ×2 (08:44→20:30)
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
[2017-07-12] MEDS: ACETAMINOPHEN 325 MG TAB PO PRN (20:29)
[2017-07-13] VITALS (9 sets, daily range): BP systolic 95–122; BP diastolic 57–76; PULSE 85–121; RESP 20–36; TEMP 98–102; O2SAT 91–96
[2017-07-13] MEDS: CHLORHEXIDINE GLUCONATE 2 % 1 PACK (2 CLOTHS) TOP SCH (04:00)
[2017-07-13] MEDS: ACETAMINOPHEN 325 MG TAB PO PRN (05:11)
[2017-07-13] MEDS: HEPARIN SODIUM - SQ 10,000 UNITS/ML VIAL SQ SCH ×3 (05:12→23:40)
[2017-07-13 06:45] LABS: AUTOMATED NEUTROPHIL # 7.3 TH/MM3 (1.8-7.7); BASOPHIL % 0.3 % (0.0-2.0); EOSINOPHIL # 0.5 TH/MM3 (0-0.4); EOSINOPHIL % 4.3 % (0.0-4.0); HEMATOCRIT 32.9 % (39.0-51.0); HEMOGLOBIN 10.7 GM/DL (13.0-17.0); LYMPH % 28.9 % (9.0-44.0); LYMPHOCYTE # 3.6 TH/MM3 (1.0-4.8); MEAN CORPUSCULAR HEMOGLOBIN 30.2 PG (27.0-34.0); MEAN CORPUSCULAR HGB CONC 32.5 % (32.0-36.0); MEAN PLATELET VOLUME 8.1 FL (7.0-11.0); MONO % 7.1 % (0.0-8.0); MONOCYTE # 0.9 TH/MM3 (0-0.9); NEUT % 59.4 % (16.0-70.0); PLATELET COUNT 287 TH/MM3 (150-450); RED BLOOD COUNT 3.54 MIL/MM3 (4.50-5.90); RED CELL DISTRIBUTION WIDTH 15.8 % (11.6-17.2); WHITE BLOOD COUNT 12.3 TH/MM3 (4.0-11.0)
[2017-07-13 07:09] LABS: ALBUMIN 2.3 GM/DL (3.4-5.0); ALT (GPT) 28 U/L (12-78); AST (GOT) 43 U/L (15-37); BICARBONATE 27.3 MEQ/L (21.0-32.0); BLOOD UREA NITROGEN 70 MG/DL (7-18); CALCIUM 9.4 MG/DL (8.5-10.1); CHLORIDE 114 MEQ/L (98-107); CREATININE 1.95 MG/DL (0.60-1.30); GLOMERULAR FILTRATION RATE 35 ML/MIN (>89); GLUCOSE,RANDOM 171 MG/DL (74-106); SODIUM (NA) 150 MEQ/L (136-145)
[2017-07-13 07:10] LABS: ALKALINE PHOSPHATASE 122 U/L (45-117); TOTAL BILIRUBIN ADULT 0.6 MG/DL (0.2-1.0); TOTAL PROTEIN 8.5 GM/DL (6.4-8.2)
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
[2017-07-13] MEDS: CHLORHEXIDINE GLUCONATE 0.12% 15 ML CUP SWISH-SPIT SCH ×2 (08:58→23:54)
[2017-07-13] MEDS: FAMOTIDINE 20 MG TAB NG SCH ×2 (08:59→23:41)
[2017-07-13] MEDS: BACITRACIN TOP OINT 15 GM TUBE TOPICAL SCH ×2 (08:59→23:54)
[2017-07-13] MEDS: BENEPROTEIN POWDER 1 PACK G-TUBE SCH ×3 (08:59→17:25)
[2017-07-13] MEDS ORDERED: MORPHINE SULFATE 2 MG/ML INJ IV PUSH ONE (09:00)
--- NOTE | 2017-07-13 09:08 | RADRPT ---
EXAM DATE/TIME: 07/13/2017 08:14 [place] COMPARISON: CHEST SINGLE AP, July 06, 2017, 4:46. INDICATIONS : Fever, short of breath MEDICAL HISTORY : lap band, adrenal, neuropathy SURGICAL HISTORY : adrenal gland ENCOUNTER: Subsequent ACUITY: 2 days PAIN SCORE: Non-responsive. LOCATION: Bilateral chest FINDINGS: Stable tracheostomy. The lungs are hypoaerated with mild bibasilar air space disease. Cardiomediastin al contours are within normal limits. Remainder of the exam is unchanged. CONCLUSION: 1. Low lung volumes with mild bibasilar airspace disease, presumably atelectasis. Vinh Charles MD on July 13, 2017 at 9:05 Board Certified Radiologist. This report was verified electronically.
[2017-07-13] MEDS: AMANTADINE HCL SOLN 100 MG/10 ML UDC PO SCH ×2 (09:38→15:06)
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
[2017-07-13] MEDS ORDERED: VANCOMYCIN INJ 1,000 MG in SODIUM CHLOR 0.9% 250 ML INJ 250 ML IV SCH (11:30)
[2017-07-13] MEDS ORDERED: Vancomycin Consult Pharmacy 1 EA OTHER SCH (11:30)
[2017-07-13] MEDS ORDERED: LACTATED RINGER'S 1000 ML INJ 1,000 ML IV ONE (12:00)
[2017-07-13] MEDS: LACTATED RINGER'S 1000 ML INJ 1,000 ML IV SCH ×2 (12:33→23:50)
[2017-07-13] MEDS: PIPERACIL-TAZO 3.375 GM PREMIX 50 ML IV SCH ×2 (12:36→23:41)
[2017-07-13] MEDS ORDERED: VANCOMYCIN INJ 1,500 MG in SODIUM CHLORID 0.9% 500 ML INJ 500 ML IV ONE (13:00)
[2017-07-13] MEDS ORDERED: IBUPROFEN 800 MG TAB PO ONE (13:00)
[2017-07-13] MEDS: ACETAMINOPHEN 1000 MG/100 ML 100 ML IV SCH ×2 (13:57→17:49)
[2017-07-13] MEDS ORDERED: PILL SPLITTER OTHER PRN (16:30)
[2017-07-14] VITALS (9 sets, daily range): BP systolic 90–100; BP diastolic 54–60; PULSE 92–101; RESP 20–32; TEMP 97.4–100.5; O2SAT 95–99
[2017-07-14] MEDS: ACETAMINOPHEN 1000 MG/100 ML 100 ML IV SCH ×3 (02:03→11:57)
[2017-07-14] MEDS: CHLORHEXIDINE GLUCONATE 2 % 1 PACK (2 CLOTHS) TOP SCH (04:00)
[2017-07-14] MEDS: PIPERACIL-TAZO 3.375 GM PREMIX 50 ML IV SCH ×2 (05:38→14:18)
[2017-07-14] MEDS: HEPARIN SODIUM - SQ 10,000 UNITS/ML VIAL SQ SCH ×2 (05:39→11:54)
[2017-07-14] MEDS: LACTATED RINGER'S 1000 ML INJ 1,000 ML IV SCH (08:00)
[2017-07-14] MEDS: FAMOTIDINE 20 MG TAB NG SCH (08:55)
[2017-07-14] MEDS: BENEPROTEIN POWDER 1 PACK G-TUBE SCH ×3 (08:56→17:19)
[2017-07-14] MEDS: CHLORHEXIDINE GLUCONATE 0.12% 15 ML CUP SWISH-SPIT SCH (08:56)
[2017-07-14] MEDS: BACITRACIN TOP OINT 15 GM TUBE TOPICAL SCH (08:56)
[2017-07-14] MEDS: AMANTADINE HCL SOLN 100 MG/10 ML UDC PO SCH ×2 (08:57→11:57)
[2017-07-14] MEDS ORDERED: SODIUM CHLOR 0.45% 1000 ML INJ 1,000 ML IV SCH (13:00)
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
[2017-07-14 13:32] LABS: AUTOMATED NEUTROPHIL # 13.6 TH/MM3 (1.8-7.7); BASOPHIL # 0.1 TH/MM3 (0-0.2); BASOPHIL % 0.4 % (0.0-2.0); EOSINOPHIL # 0.7 TH/MM3 (0-0.4); EOSINOPHIL % 4.2 % (0.0-4.0); HEMOGLOBIN 9.7 GM/DL (13.0-17.0); LYMPH % 13.1 % (9.0-44.0); LYMPHOCYTE # 2.3 TH/MM3 (1.0-4.8); MEAN CELL VOLUME 95.2 FL (80.0-100.0); MEAN CORPUSCULAR HEMOGLOBIN 29.9 PG (27.0-34.0); MEAN CORPUSCULAR HGB CONC 31.4 % (32.0-36.0); MEAN PLATELET VOLUME 7.8 FL (7.0-11.0); MONO % 4.6 % (0.0-8.0); MONOCYTE # 0.8 TH/MM3 (0-0.9); NEUT % 77.7 % (16.0-70.0); PLATELET COUNT 195 TH/MM3 (150-450); RED BLOOD COUNT 3.25 MIL/MM3 (4.50-5.90); RED CELL DISTRIBUTION WIDTH 16.2 % (11.6-17.2); WHITE BLOOD COUNT 17.5 TH/MM3 (4.0-11.0)
[2017-07-14 13:55] LABS: ALBUMIN 2.1 GM/DL (3.4-5.0); AST (GOT) 41 U/L (15-37); BICARBONATE 27.2 MEQ/L (21.0-32.0); BLOOD UREA NITROGEN 74 MG/DL (7-18); CALCIUM 8.6 MG/DL (8.5-10.1); CHLORIDE 116 MEQ/L (98-107); CREATININE 1.98 MG/DL (0.60-1.30); GLOMERULAR FILTRATION RATE 34 ML/MIN (>89); GLUCOSE,RANDOM 170 MG/DL (74-106); SODIUM (NA) 152 MEQ/L (136-145)
[2017-07-14 14:03] LABS: ALKALINE PHOSPHATASE 118 U/L (45-117); ALT (GPT) 21 U/L (12-78); RANDOM VANCOMYCIN 14.3 COMMENT; TOTAL BILIRUBIN ADULT 0.5 MG/DL (0.2-1.0); TOTAL PROTEIN 7.4 GM/DL (6.4-8.2)
[2017-07-14] MEDS ORDERED: VANCOMYCIN INJ 2,000 MG in SODIUM CHLORID 0.9% 500 ML INJ 500 ML IV ONE (15:00)
--- NOTE | 2017-07-14 15:16 | HHI.HCPN ---
Reason for visit a. To assist with evaluation and management of symptoms including: Pain, dyspnea b. To assist medical decision maker(s) with: better understanding of current medical conditions; weighing benefits/burdens of medical treatment options; making medical treatment decisions. Subjective/Interval History Neurological status unchanged. He has been febrile over the last 24 hours with temperatures up to 102.0. Labs show an elevated WBC of 17.5, with decreasing hemoglobin of 9.7, hematocrit 31.0. Blood cultures, sputum cultures and urine cultures are pending. He is receiving vancomycin and Zosyn. He remains encephalopathic and has now developed mild hypernatremia with sodium 152, potassium 4.3 and worsening renal function with BUN 74 and creatinine 1.98. He does not withdraw to noxious stimuli, remains unresponsive. . Family/friend interactions Spoke with patient's daughter, Haily, this morning via telephone and she related the conversation twin her and her sister regarding her father's prognosis and goals of care. At this point they have discussed the possibility of hospice and withdrawal of support, as they do not wish their father to decline slowly in a shelter facility. They are aware that his prognosis for recovery is very poor and have made him a DO NOT RESUSCITATE CODE STATUS. They have reviewed the hospice information forwarded to them by [facility] and feel comfortable with a transfer to a hospice care facility for withdrawal of support. Prior to making the final decision to withdraw care, they have asked to speak to the trauma surgeon to make sure that every avenue has been exhausted prior to making this decision. This request was conveyed to LULU Scales, who has given that requested Dr. Corea to contact family today and discussed. The family states they will contact me back once that decision is made. 1545: Spoke with Dr. Corea regarding patient's family's concerns and was present for his conversation with the family verifying patient's grim prognosis and neurological status. 1600: Received a return call from Haily and her sister Jovanna, recapped clinical course and gave anticipatory guidance regarding the upcoming withdrawal of nutrition and fluid support. After extensive discussion, the family determined that this was the path they wish to take and a hospice consultation was issued. They have requested that the consents be emailed to Haily for review, signature and returned. Hospice admission nurse will contact him by telephone to establish contact and provide family support. Plan to move patient to [facility] once consents are signed and transportation arranged. . Advance Directives Living Will: Never completed Health Care Surrogate: Never completed Durable Power of Supervisor Elementary Education: Never completed Objective Vital Signs Date Time Temp Pulse Resp B/P (MAP) Pulse Ox O2 Delivery O2 Flow Rate FiO2 07/14/17 13:05 97 T-piece 40 07/14/17 12:00 97.4 96 22 92/54 (67) 99 07/14/17 08:00 Trach Collar 4.00 07/14/17 08:00 99.6 93 20 97/56 (70) 96 07/14/17 04:00 100.5 101 32 90/54 (66) 97 07/14/17 01:44 95 T-piece 50 07/14/17 00:00 100.4 101 30 92/60 (71) 96 07/13/17 22:00 96 Trach Collar 4.00 50 07/13/17 20:00 100.7 97 22 96/60 (72) 96 07/13/17 16:00 101.3 110 30 99/63 (75) 95 Intake & Output 07/14/17 07/14/17 07:00 19:00 Intake Total 150 ml Output Total 800 ml Balance -650 ml Intake Oral 0 ml IV Total 150 ml Output Urine Total 800 ml # Bowel Movements 1 Physical Exam CONSTITUTIONAL/GENERAL: This is an adequately nourished patient, unresponsive. TUBES/LINES/DRAINS: PIV, tracheostomy, PEG tube, condom catheter EYES: Pupils 3-4 mm and fixed. ENT: Nose without bleeding or purulent drainage. NECK: No JVD, midline tracheostomy. CARDIOVASCULAR: Regular rate and rhythm without murmurs, gallops, or rubs. Peripheral pulses diminished. Right greater than left RESPIRATORY/CHEST: Symmetric, unlabored respirations. Scattered rhonchi. GASTROINTESTINAL: Abdomen soft, non-tender, nondistended. No hepato-splenomegaly , or palpable masses. PEG tube intact. No guarding. Bowel sounds present. GENITOURINARY: Without palpable bladder distension. Condom catheter in place. MUSCULOSKELETAL: Right calf/lower leg/foot larger than left, chronic since previous infection. NEUROLOGICAL: Unresponsive PSYCHIATRIC: Unresponsive . Diagnostic Tests Laboratory Laboratory Tests Test 07/13/17 05:15 07/14/17 13:20 White Blood Count 12.3 TH/MM3 (4.0-11.0) 17.5 TH/MM3 (4.0-11.0) Red Blood Count 3.54 MIL/MM3 (4.50-5.90) 3.25 MIL/MM3 (4.50-5.90) Hemoglobin 10.7 GM/DL (13.0-17.0) 9.7 GM/DL (13.0-17.0) Hematocrit 32.9 % (39.0-51.0) 31.0 % (39.0-51.0) Mean Corpuscular Volume 93.0 FL (80.0-100.0) 95.2 FL (80.0-100.0) Mean Corpuscular Hemoglobin 30.2 PG (27.0-34.0) 29.9 PG (27.0-34.0) Mean Corpuscular Hemoglobin Concent 32.5 % (32.0-36.0) 31.4 % (32.0-36.0) Red Cell Distribution Width 15.8 % (11.6-17.2) 16.2 % (11.6-17.2) Platelet Count 287 TH/MM3 (150-450) 195 TH/MM3 (150-450) Mean Platelet Volume 8.1 FL (7.0-11.0) 7.8 FL (7.0-11.0) Neutrophils (%) (Auto) 59.4 % (16.0-70.0) 77.7 % (16.0-70.0) Lymphocytes (%) (Auto) 28.9 % (9.0-44.0) 13.1 % (9.0-44.0) Monocytes (%) (Auto) 7.1 % (0.0-8.0) 4.6 % (0.0-8.0) Eosinophils (%) (Auto) 4.3 % (0.0-4.0) 4.2 % (0.0-4.0) Basophils (%) (Auto) 0.3 % (0.0-2.0) 0.4 % (0.0-2.0) Neutrophils # (Auto) 7.3 TH/MM3 (1.8-7.7) 13.6 TH/MM3 (1.8-7.7) Lymphocytes # (Auto) 3.6 TH/MM3 (1.0-4.8) 2.3 TH/MM3 (1.0-4.8) Monocytes # (Auto) 0.9 TH/MM3 (0-0.9) 0.8 TH/MM3 (0-0.9) Eosinophils # (Auto) 0.5 TH/MM3 (0-0.4) 0.7 TH/MM3 (0-0.4) Basophils # (Auto) 0.0 TH/MM3 (0-0.2) 0.1 TH/MM3 (0-0.2) CBC Comment DIFF FINAL DIFF FINAL Differential Comment Blood Urea Nitrogen 70 MG/DL (7-18) 74 MG/DL (7-18) Creatinine 1.95 MG/DL (0.60-1.30) 1.98 MG/DL (0.60-1.30) Random Glucose 171 MG/DL (74-106) 170 MG/DL (74-106) Total Protein 8.5 GM/DL (6.4-8.2) 7.4 GM/DL (6.4-8.2) Albumin 2.3 GM/DL (3.4-5.0) 2.1 GM/DL (3.4-5.0) Calcium Level 9.4 MG/DL (8.5-10.1) 8.6 MG/DL (8.5-10.1) Alkaline Phosphatase 122 U/L (45-117) 118 U/L (45-117) Aspartate Amino Transf (AST/SGOT) 43 U/L (15-37) 41 U/L (15-37) Alanine Aminotransferase (ALT/SGPT) 28 U/L (12-78) 21 U/L (12-78) Total Bilirubin 0.6 MG/DL (0.2-1.0) 0.5 MG/DL (0.2-1.0) Sodium Level 150 MEQ/L (136-145) 152 MEQ/L (136-145) Potassium Level 4.5 MEQ/L (3.5-5.1) 4.3 MEQ/L (3.5-5.1) Chloride Level 114 MEQ/L (98-107) 116 MEQ/L (98-107) Carbon Dioxide Level 27.3 MEQ/L (21.0-32.0) 27.2 MEQ/L (21.0-32.0) Anion Gap 9 MEQ/L (5-15) 9 MEQ/L (5-15) Estimat Glomerular Filtration Rate 35 ML/MIN (>89) 34 ML/MIN (>89) Random Vancomycin Level 14.3 COMMENT . Result Diagram: 07/14/17 1320 07/14/17 1320 Microbiology Microbiology Date/Time Source Procedure Growth Status 07/13/17 10:30 Blood Peripheral Aerobic Blood Culture - Preliminary NO GROWTH IN 1 DAY Resulted 07/13/17 10:30 Blood Peripheral Anaerobic Blood Culture - Preliminary NO GROWTH IN 1 DAY Resulted 07/13/17 10:30 Blood Peripheral Aerobic Blood Culture - Preliminary NO GROWTH IN 1 DAY Resulted 07/13/17 10:30 Blood Peripheral Anaerobic Blood Culture - Preliminary NO GROWTH IN 1 DAY Resulted 07/13/17 08:30 Sputum Endotracheal Gram Stain - Final Resulted 07/13/17 08:30 Sputum Endotracheal Sputum Culture - Preliminary HEAVY GROWTH NORMAL RESPIRATORY EMEKA... Resulted 07/13/17 08:40 Urine Catheterized Urine Urine Culture - Preliminary IMMATURE GROWTH - REINCUBATE Resulted Imaging Last Impressions Chest X-Ray 07/13/17 0000 Signed Impressions: Service Date/Time: Thursday, July 13, 2017 08:14 - CONCLUSION: 1. Low lung volumes with mild bibasilar airspace disease, presumably atelectasis. Vinh Charles MD Abdomen X-Ray 06/26/17 0000 Signed Impressions: Service Date/Time: Monday, June 26, 2017 14:04 - CONCLUSION: Jejunostomy tube in good position.. Max Thomson MD FACR Renal Ultrasound 06/19/17 0000 Signed Impressions: Service Date/Time: Monday, June 19, 2017 18:44 - CONCLUSION: 1. No acute findings. No hydronephrosis or perinephric fluid. No free fluid is seen. Rodri Gutierres MD Head CT 06/14/17 0000 Signed Impressions: Service Date/Time: Wednesday, June 14, 2017 12:55 - CONCLUSION: 1. Parenchymal hemorrhage in the anterior aspect of the right temporal lobe with a hematocrit level is basically stable measuring approximately 4.9 cm in greatest AP dimension. 2. Subarachnoid blood in the perivertex high parietal convexities bilaterally actually show some interval improvement. 3. Chronic sinusitis in the sphenoid and right maxillary antra. Carlos White MD CT Angiography 06/14/17 0000 Signed Impressions: Service Date/Time: Wednesday, June 14, 2017 12:53 - CONCLUSION: 1. No evidence of acute pulmonary embolism. 2. Dense consolidating bibasilar airspace disease. 3. Mild upper lobe vascular congestion. 4. Endotracheal and nasogastric tubes in place. Jairo Mills MD Brain MRI 06/14/17 0000 Signed Impressions: Service Date/Time: Wednesday, June 14, 2017 13:23 - CONCLUSION: 1. No evidence of significant post code anoxic changes. 2. Minimal hemorrhagic contusion and subarachnoid hemorrhage along the posterior parietal lobes. 3. Stable right temporal lobe hematoma. 4. Very small bioccipital subdural hematomas. Jairo Mills MD Thoracic Spine MRI 06/07/17 0000 Signed Impressions: Service Date/Time: Wednesday, June 07, 2017 13:49 - CONCLUSION: 1. MRI confirms the presence of an acute or subacute oblique fracture through the anterosuperior aspect of the T10 vertebral body. 2. Dextroscoliosis of the dorsal spine with associated mild marginal spurring. Spinal canal is patent throughout without cord compromise. 3. Innumerable gallstones in the gallbladder lumen. Benign-appearing cortical cysts in the visualized portions of the kidneys bilaterally. Carlos White MD Lower Extremity Ultrasound 06/07/17 0000 Signed Impressions: Service Date/Time: Wednesday, June 07, 2017 08:47 - CONCLUSION: No DVT is identified within the right lower extremity. Kranthi Monique MD Hand X-Ray 06/07/17 0000 Signed Impressions: Service Date/Time: Wednesday, June 07, 2017 04:46 - CONCLUSION: 1. Mildly comminuted fracture of the fifth distal phalangeal tuft with mild soft tissue swelling. 2. Osteoarthritic change. Jt Dumas MD Thoracic Spine CT 06/06/17 0000 Signed Impressions: Service Date/Time: Tuesday, June 06, 2017 21:24 - CONCLUSION: Nondisplaced T10 fracture. No subluxation or fracture-associated foraminal or spinal stenosis. Kranthi Max MD Neck CT 06/06/17 0000 Signed Impressions: Service Date/Time: Tuesday, June 06, 2017 18:58 - CONCLUSION: No acute abnormality demonstrated. Kranthi Max MD Lumbar Spine CT 06/06/17 0000 Signed Impressions: Service Date/Time: Tuesday, June 06, 2017 21:24 - CONCLUSION: Intact lumbar spine. Degenerative changes as above. Kranthi Max MD . Procedures 06/11-endotracheal intubation. 06/11-left IJ central line placement. 06/13-right femoral arterial line placement 06/13-CPR/ACLS protocol 06/13-bronchoscopy 06/21-PEG tube placement. . Assessment and Plan Disease Oriented Problem List: (1) Peripheral neuropathy (2) Diastolic dysfunction (3) Obesity (BMI 30.0-34.9) (4) Traumatic brain injury (5) Closed T10 fracture (6) ICH (intracerebral hemorrhage) (7) Mild major neurocognitive disorder due to traumatic brain injury with behavioral disturbance Symptom Scale: (1) Dyspnea and respiratory abnormalities 0-10 Scale: Unable to quantify (2) Pain, generalized 0-10 Scale: Unable to quantify Pertinent Non-Medical Issues Psychosocial: Born in [place] and lived in [place] throughout his life. 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 Has 2 daughters, Haily Mcdonnell, who lives in [place] and Jovanna Peres, who lives in [place]. His sister Carmita has been visiting from [place]. . Spiritual: Enrobing Machine Feeder available. . Legal: None noted. . Ethical issues impacting care: None noted. . Important Contacts Daughter-Haily Mcdonnell . Prognosis His prognosis is very poor. He is sustained a traumatic brain injury and suffered a cardiac arrest. Since his arrest he has been obtunded/unresponsive, with only withdrawal to painful stimuli. He does not follow commands and is dependent for all ADLs. He is at significant risk for recurrent infections, wounds and continued decline. Per the trauma service, he has a grim prognosis for any meaningful recovery. . Code Status: No Code Plan PLAN: Legal decision maker: His daughters, Haily and Jovanna, would be his legal proxies by [place] statutes. Patient is and has one child. Goals: Comfort oriented. Awaiting call from trauma surgeon to make the final decision on withdrawal of care and hospice. CODE STATUS: DNR SYMPTOMS: * Dyspnea: He has been weaned off the ventilator and remains on a tracheostomy collar. He is at significant risk for recurrent respiratory difficulties due to the likelihood of pneumonia and/or aspiration. He is currently having some recurrent fevers as well as increase in his white blood cells suspicious for an infection. Cultures are pending. * Pain: He does withdraw to pain but is at risk for painful sequelae from bedbound status, invasive lines, chronic pain, headache status post TBI and is unable to make his needs known. * Failure to thrive: Family has opted for hospice and withdrawal of care at the [facility]. Consents have been emailed to Haily and once signed and returned transportation will be arranged. Contacted hospice admissions office to email consents and arrange for admission nurse follow-up with family to establish contact and provide support. Palliative care will continue to follow the patient during hospital course as condition evolves, to assist patient/decision-maker with understanding of their medical conditions, weighing benefits/burdens of treatment options, for clarification of goals of treatment. Additionally will assist with any symptoms of palliative concern. . Time Spent Time Periods: 8:55-9:40, 16:00-16:20. Total Floor Time (mins): 100 >50% Counseling/Coord of Care: Yes (discussion with daughter by phone.) Attestation To help prompt me to consider important information that might be impacting today's encounter and assessment, information from prior notes written by myself or my colleagues may have been "brought forward" into today's note. My signature on this note, however, is an attestation that I personally performed the exam, history, and/or decision-making noted today, and, unless otherwise indicated, the interactions with patient, family, and staff as well as the review of records all occurred today. I also attest that the listed assessment and stated plan reflect my best clinical judgment today based on the combination of historical information, prior notes, and today's exam/ interactions. When time spent is documented, it refers only to time spent today by the signer, or if indicated, combined time spent today by collaborating physician/nurse practitioner. . Amber Lucero Jul 14, 2017 3:16 pm
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
== END 2017-07-15 00:29 | disposition hospice, inpatient (51) | DRG 3 ==
LOC: NEPE 17:16 → NEDA 19:51 → N03A 22:55 → N07A 07-11 19:23
PROVIDERS: ADMIT Surgery; ATTEND Surgery
PROC: 0HQ0XZZ Repair Scalp Skin, External Approach (ICD-10-PCS; 2017-06-06)
PROC: 5A1955Z Respiratory Ventilation, Greater than 96 Consecutive Hours (ICD-10-PCS; 2017-06-11)
PROC: 0BH17EZ Insertion of Endotracheal Airway into Trachea, Via Natural or Artificial Opening (ICD-10-PCS; 2017-06-11)
PROC: 02HV33Z Insertion of Infusion Device into Superior Vena Cava, Percutaneous Approach (ICD-10-PCS; 2017-06-11)
PROC: 04HY32Z Insertion of Monitoring Device into Lower Artery, Percutaneous Approach (ICD-10-PCS; 2017-06-13)
PROC: 5A12012 Performance of Cardiac Output, Single, Manual (ICD-10-PCS; 2017-06-13)
PROC: 0B113F4 Bypass Trachea to Cutaneous with Tracheostomy Device, Percutaneous Approach (ICD-10-PCS; principal; 2017-06-18)
PROC: 5A1955Z Respiratory Ventilation, Greater than 96 Consecutive Hours (ICD-10-PCS; 2017-06-18)
PROC: 0BJ08ZZ Inspection of Tracheobronchial Tree, Via Natural or Artificial Opening Endoscopic (ICD-10-PCS; 2017-06-18)
PROC: 0DJ08ZZ Inspection of Upper Intestinal Tract, Via Natural or Artificial Opening Endoscopic (ICD-10-PCS; 2017-06-21)
PROC: 0DNW0ZZ Release Peritoneum, Open Approach (ICD-10-PCS; 2017-06-23)
PROC: 0DHA0UZ Insertion of Feeding Device into Jejunum, Open Approach (ICD-10-PCS; 2017-06-23)
PROC: 0B21XFZ Change Tracheostomy Device in Trachea, External Approach (ICD-10-PCS; 2017-07-01)
DX: S06.5X0A Traumatic subdural hemorrhage without loss of consciousness, initial encounter (principal); J69.0 Pneumonitis due to inhalation of food and vomit; G93.41 Metabolic encephalopathy; I47.2 Ventricular tachycardia; A41.9 Sepsis, unspecified organism; N17.9 Acute kidney failure, unspecified; N18.3 Chronic kidney disease, stage 3 (moderate); J96.01 Acute respiratory failure with hypoxia; I46.9 Cardiac arrest, cause unspecified; I49.01 Ventricular fibrillation; F10.231 Alcohol dependence with withdrawal delirium; S22.071A Stable burst fracture of T9-T10 vertebra, initial encounter for closed fracture; F02.81 Dementia in other diseases classified elsewhere, unspecified severity, with behavioral disturbance; E46 Unspecified protein-calorie malnutrition; E87.0 Hyperosmolality and hypernatremia; J98.11 Atelectasis; S06.6X0A Traumatic subarachnoid hemorrhage without loss of consciousness, initial encounter; S01.01XA Laceration without foreign body of scalp, initial encounter; S62.666A Nondisplaced fracture of distal phalanx of right little finger, initial encounter for closed fracture; I12.9 Hypertensive chronic kidney disease with stage 1 through stage 4 chronic kidney disease, or unspecified chronic kidney disease; E11.22 Type 2 diabetes mellitus with diabetic chronic kidney disease; E11.40 Type 2 diabetes mellitus with diabetic neuropathy, unspecified; E11.65 Type 2 diabetes mellitus with hyperglycemia; I48.91 Unspecified atrial fibrillation; I95.9 Hypotension, unspecified; E87.70 Fluid overload, unspecified; E86.1 Hypovolemia; E88.09 Other disorders of plasma-protein metabolism, not elsewhere classified; K66.0 Peritoneal adhesions (postprocedural) (postinfection); K31.89 Other diseases of stomach and duodenum; I89.0 Lymphedema, not elsewhere classified; E66.01 Morbid (severe) obesity due to excess calories; D64.9 Anemia, unspecified; D69.6 Thrombocytopenia, unspecified; Z68.32 Body mass index [BMI] 32.0-32.9, adult; R13.10 Dysphagia, unspecified; E86.0 Dehydration; I10 Essential (primary) hypertension; Z51.5 Encounter for palliative care; R23.8 Other skin changes; Z72.0 Tobacco use; B96.1 Klebsiella pneumoniae [K. pneumoniae] as the cause of diseases classified elsewhere; X99.8XXA Assault by other sharp object, initial encounter
CPT/HCPCS: 12004; 31500; 31600; 31624; 36430; 36556; 36600; 70450; 70491; 70551; 71010; 71045; 71275; 72128; 72131; 72146; 73130; 74000; 76775; 76937; 80048; 80053; 80202; 81001; 82140; 82607; 82805; 82948; 83605; 83735; 83930; 83935; 84100; 84132; 84295; 84300; 84443; 84484; 85007; 85025; 85027; 85610; 85730; 86403; 86850; 86900; 86901; 87015; 87040; 87070; 87077; 87086; 87186; 87205; 87641; 90471; 90714; 92950; 93005; 93306; 93971; 94002; 94003; 94150; 94640; 94664; 95819; 96374; 96375; A7521; C9113; J0131; J0171; J0282; J0360; J0692; J1100; J1170; J1265; J1630; J1644; J1815; J1953; J1956; J2060; J2150; J2250; J2270; J2370; J2405; J2543; J3010; J3370; J3411; J3480; J7030; J7040; J7050; J7060; J7120; L0200; L0484; P9035; P9045; P9047; Q9963; Q9967